=== PATIENT | male | born 1960 | race Caucasian/White ===

== ENCOUNTER → 2021-07-23 15:17 | Outpatient (CLI) | payer BC, SELFPAY ==
[2021-07-23 17:07] LABS: Absolute Lymphocyte Count 2.42 X10^3/uL (0.83-4.51); Absolute Neutrophil Count 2.7 X10^3/uL (2.0-7.7); Basophil# 0.02 X10^3/uL; Basophil% 0.3 % (0-1); Eosinophil# 0.13 X10^3/uL; Eosinophils% 2.2 % (0-5); Hematocrit 35.3 % (40-54); Hemoglobin 11.9 g/dL (13.0-16.5); Lymphocyte # 2.42 X10^3/ul (0.83-4.51); Lymphocyte % 41.4 % (19-41); Mean Corp Hgb Conc 33.7 g/dL (32-36); Mean Corpuscular Volume 88.9 fL (80-94); Mean Platelet Vol. 9.9 fl (6.2-12.0); Monocyte# 0.51 X10^3/uL; Monocyte% 8.7 % (0-10); NRBC Flagged by Analyzer 0 % (0-5); Neutrophil # 2.73 X10^3/uL (2.7-7.7); Neutrophil % 46.9 % (47-70); Platelet Count 202 K/mm3 (150-450); RBC Distribution Width CV 13.9 % (11.6-14.6); RBC Distribution Width SD 44.8 fl (35.1-43.9); Red Blood Count 3.97 M/mm3 (4.6-6.2); White Blood Count 5.8 K/mm3 (4.4-11.0)
[2021-07-23 17:42] LABS: ALB/GLOB Ratio 0.9 RATIO (0.9-2.4); AST(SGOT) 17 U/L (15-37); Alanine Aminotransfer ALT/SGPT 29 U/L (16-61); Albumin, Serum 3.8 g/dL (3.2-5.0); Alkaline Phosphatase 61 U/L (45-117); Anion Gap 9 (5-15); BUN 17 mg/dL (7-18); BUN/Creat Ratio 17.2 RATIO (10-20); Calcium,Total 8.7 mg/dL (8.5-10.1); Chloride 102 mmol/L (98-107); Cholesterol 116 mg/dL (200); Creatinine, Serum 0.99 mg/dL (0.70-1.30); EST Glomerular Filtration Rate 81 mL/min (>60); Est Glom Filt Rate - Afr Amer 99 mL/min (>60); Globulin 4.2 g/dL (2.2-4.2); Glucose 115 mg/dL (74-106); High Density Lipoprotein 37 mg/dL; PSA,Total - Annual Screen 1.53 ng/mL (0.00-4.00); Potassium 4.2 mmol/L (3.5-5.1); Sodium Level 138 mmol/L (136-145); Thyroid Stim Hormone (TSH) 1.24 uIU/mL (0.358-3.74); Triglycerides 162 mg/dL; Very Low Density Lipoprotein 32 mg/dL (5-40)
== END ==
PROVIDERS: PCP Internal Medicine; Referring Provider Nurse Practitioner Family; Visit Provider Nurse Practitioner Family
DX: Z00.00 Encounter for general adult medical examination without abnormal findings (principal); E11.9 Type 2 diabetes mellitus without complications
CPT/HCPCS: 36415; 80053; 80061; 84153; 84443; 85025; G0103

== ENCOUNTER → 2022-05-08 | Outpatient (CLI) | payer BC, SELFPAY ==
[2022-05-08 16:43] LABS: Absolute Lymphocyte Count 3.04 X10^3/uL (0.83-4.51); Basophil# 0.02 X10^3/uL; Basophil% 0.3 % (0-1); Eosinophil# 0.16 X10^3/uL; Eosinophils% 2.4 % (0-5); Hematocrit 43.8 % (40-54); Hemoglobin 14.2 g/dL (13.0-16.5); Lymphocyte # 3.04 X10^3/ul (0.83-4.51); Lymphocyte % 45.2 % (19-41); Mean Corp Hgb Conc 32.4 g/dL (32-36); Mean Corpuscular Hgb 29.3 pg (27.0-32.0); Mean Corpuscular Volume 90.3 fL (80-94); Mean Platelet Vol. 10.2 fl (6.2-12.0); Monocyte# 0.52 X10^3/uL; Monocyte% 7.7 % (0-10); NRBC Flagged by Analyzer 0 % (0-5); Neutrophil # 2.97 X10^3/uL (2.7-7.7); Neutrophil % 44.1 % (47-70); Platelet Count 268 K/mm3 (150-450); RBC Distribution Width CV 13.3 % (11.6-14.6); RBC Distribution Width SD 43.4 fl (35.1-43.9); Red Blood Count 4.85 M/mm3 (4.6-6.2); White Blood Count 6.7 K/mm3 (4.4-11.0)
[2022-05-08 17:50] LABS: ALB/GLOB Ratio 0.9 RATIO (0.9-2.4); AST(SGOT) 16 U/L (15-37); Alanine Aminotransfer ALT/SGPT 24 U/L (16-61); Alkaline Phosphatase 70 U/L (45-117); Anion Gap 8 (5-15); BUN 16 mg/dL (7-18); BUN/Creat Ratio 12.9 RATIO (10-20); Calcium,Total 9.2 mg/dL (8.5-10.1); Chloride 102 mmol/L (98-107); Cholesterol 120 mg/dL (200); Creatinine, Serum 1.24 mg/dL (0.70-1.30); EST Glomerular Filtration Rate 63 mL/min (>60); Est Glom Filt Rate - Afr Amer 76 mL/min (>60); Globulin 4.3 g/dL (2.2-4.2); Glucose 79 mg/dL (74-106); High Density Lipoprotein 32 mg/dL; Protein, Total 8.3 g/dL (6.4-8.2); Sodium Level 139 mmol/L (136-145); Triglycerides 305 mg/dL; Very Low Density Lipoprotein 61 mg/dL (5-40)
== END | disposition home or self-care (01) ==
LOC: BIMLAB 15:45
PROVIDERS: PCP Internal Medicine; Referring Provider Internal Medicine; Visit Provider Internal Medicine
DX: Z00.00 Encounter for general adult medical examination without abnormal findings (principal)
CPT/HCPCS: 36415; 80053; 80061; 85025

== ENCOUNTER → 2023-04-27 | Outpatient (CLI) | payer BC, SELFPAY ==
[2023-04-27 12:07] LABS: Absolute Lymphocyte Count 2.02 X10^3/uL (0.83-4.51); Absolute Neutrophil Count 2.8 X10^3/uL (2.0-7.7); Basophil# 0.03 X10^3/uL; Basophil% 0.6 % (0-1); Eosinophil# 0.08 X10^3/uL; Eosinophils% 1.5 % (0-5); Hematocrit 45.5 % (40-54); Hemoglobin 14.8 g/dL (13.0-16.5); Lymphocyte # 2.02 X10^3/ul (0.83-4.51); Lymphocyte % 38.5 % (19-41); Mean Corp Hgb Conc 32.5 g/dL (32-36); Mean Corpuscular Hgb 29.7 pg (27.0-32.0); Mean Corpuscular Volume 91.2 fL (80-94); Mean Platelet Vol. 9.9 fl (6.2-12.0); Monocyte% 5.7 % (0-10); NRBC Flagged by Analyzer 0 % (0-5); Neutrophil # 2.76 X10^3/uL (2.7-7.7); Neutrophil % 52.7 % (47-70); Platelet Count 247 K/mm3 (150-450); RBC Distribution Width CV 13.3 % (11.6-14.6); RBC Distribution Width SD 44.8 fl (35.1-43.9); Red Blood Count 4.99 M/mm3 (4.6-6.2); White Blood Count 5.2 K/mm3 (4.4-11.0)
[2023-04-27 12:52] LABS: ALB/GLOB Ratio 0.9 RATIO (0.9-2.4); AST(SGOT) 17 U/L (15-37); Alanine Aminotransfer ALT/SGPT 28 U/L (16-61); Alkaline Phosphatase 69 U/L (45-117); Anion Gap 6 (5-15); BUN 16 mg/dL (7-18); BUN/Creat Ratio 14.7 RATIO (10-20); Calcium,Total 9.2 mg/dL (8.5-10.1); Chloride 103 mmol/L (98-107); Cholesterol 134 mg/dL (200); Creatinine, Serum 1.09 mg/dL (0.70-1.30); EST Glomerular Filtration Rate 72 mL/min (>60); Est Glom Filt Rate - Afr Amer 88 mL/min (>60); Globulin 4.4 g/dL (2.2-4.2); Glucose 103 mg/dL (74-106); High Density Lipoprotein 38 mg/dL; PSA,Total - Annual Screen 2.89 ng/mL (0.00-4.00); Potassium 4.2 mmol/L (3.5-5.1); Protein, Total 8.4 g/dL (6.4-8.2); Sodium Level 137 mmol/L (136-145); Triglycerides 244 mg/dL; Very Low Density Lipoprotein 49 mg/dL (5-40)
== END | disposition home or self-care (01) ==
LOC: BIMLAB 11:31
PROVIDERS: PCP Internal Medicine; Referring Provider Internal Medicine; Visit Provider Internal Medicine
DX: Z00.00 Encounter for general adult medical examination without abnormal findings (principal)
CPT/HCPCS: 36415; 80053; 80061; 84153; 85025; G0103

== ENCOUNTER 2023-10-12 09:03 | Emergency (ER) | payer BC, SELFPAY ==
[2023-10-12 09:04] VITALS: BP 169/87; PULSE 75; RESP 18; TEMP 36.4; O2SAT 100; BMI 29.1
--- NOTE | 2023-10-12 09:36 | EDS_ITS ---
HPI HPI - GI History of Present Illness Chief Complaint: Abd Pain Informant: patient and spouse/S.O. Abdominal Pain/Flank Pain Onset: Today Context: Sudden Onset Timing: Continuous Quality: Stabbing Location: RUQ, RLQ and Right Flank Worsened by: - (Sitting) Relieved by: Nothing Nausea/Vomiting/Emesis GI Symptom: Positive for Nausea; Negative for Vomiting Diarrhea/Melena/Hematochezia GI Symptom: Negative for Diarrhea, Melena or Hematochezia Associated Symptoms Associated Symptoms: Negative for Dysuria, Frequency or Hematuria Narrative Narrative: Patient presents with right-sided abdominal pain that began today. Patient states it began rather suddenly. Patient states it has been constant. Patient states it is stabbing. Patient states it is mainly over the right side of his abdomen. Patient states it is worse with sitting. Patient states nothing makes it better. Patient admits to some nausea but denies any vomiting. Patient denies any diarrhea, melena, or hematochezia. Patient denies any urinary complaints. [facility] Medical History (Updated 10/12/23 @ 11:[address] Boby Goodson, DO) Anxiety and depression Diabetes Encounter for preventative adult health care examination Health care maintenance High cholesterol Hyperlipidemia Left ear pain Obesity (BMI 30-39.9) Preventative health care Type 2 diabetes mellitus Home Medications atorvastatin 20 mg tablet 20 mg PO QHS #90 tabs 08/06/23 [Rx Last Taken Unknown] tirzepatide 5 mg/0.5 mL subcutaneous pen injector (Mounjaro) 5 mg (0.5 mL) subcut QWEEK #2 mL 08/21/23 [Rx Last Taken Unknown] metformin 1,000 mg tablet 1,000 mg PO BID #180 tabs 08/31/23 [Rx Last Taken Unknown] empagliflozin 25 mg tablet (Jardiance) See Rx Instructions .Route .COMPLEX #90 tabs 09/08/23 [Rx Last Taken Unknown] hydrocodone-acetaminophen 5-325mg 5mg-325mg 1 tab PO Q6H PRN PRN Pain 3 days #10 TABLETS 10/12/23 [Rx Last Taken Unknown] Allergy/AdvReac Type Severity Reaction Status Date / Time No Known Allergies Allergy Verified 10/12/23 09:03 Family History Mother Arthritis Melanoma Osteoporosis Father Diabetes Heart disease Hypertension High cholesterol Other Depression Surgical History (Updated 10/12/23 @ 09:[address] Boby Goodson DO) History of herniorrhaphy Social History Smoking Status: Never smoker alcohol intake: current alcohol intake frequency: holidays/special occasions only Alcohol type: beer substance use type: does not use what type of physical activity do you participate in: none ROS ROS ED Constitutional Constitutional ED: Denies chills or fever(s) Eyes Eyes: Denies blurry vision or change in vision ENT ENT ED: Denies rhinorrhea or sore throat Cardiovascular Cardiovascular: Denies chest pain or palpitations Respiratory/Chest Respiratory/Chest: Denies cough or dyspnea Gastrointestinal Gastrointestinal: Reports abdominal pain and nausea; Denies diarrhea or vomiting Genitourinary Genitourinary ED: Denies dysuria or hematuria Musculoskeletal Musculoskeletal: Denies back pain or neck pain Integumentary Denies abscess or rash Neurologic Neurologic: Denies headache(s) or weakness Allergic/Immunologic Allergic/Immunologic ED: Denies mouth swelling or urticaria EXAM Physical Exam Const Vital Signs: 10/12/23 09:04 Temperature 97.5 F L Temperature Source Temporal Pulse Rate 75 Respiratory Rate 18 Blood Pressure 169/87 H Blood Pressure Mean 114 Pulse Ox 100 Oxygen Delivery Method Room Air Positive well nourished and well developed General Appearance ED: well developed and NAD HEENT Reports moist mucous membranes Neck supple and no JVD Resp normal respiratory effort and clear to auscultation bilaterally Cardio regular rate and regular rhythm GI non-distended Palpation: soft and tender RUQ; Negative for guarding or rebound tenderness present Back/Spine General Back: CVA tenderness right Neuro CN's II-XII intact bilaterally, moves all extremities and no sensory deficits noted Sensorium / Orientation: alert Motor Exam: strength 5/5 throughout Psych mental status grossly normal Skin no wounds MDM MDM MDM Narrative Medical decision making narrative: Differential diagnosis includes cholecystitis, cholelithiasis, ureteral calculus, pyelonephritis, urinary tract infection, duodenal ulcer, pancreatitis, and gastroenteritis. CBC will be obtained to assess for leukocytosis and anemia. Comprehensive metabolic profile will be obtained to assess for hepatic function, renal function, and electrolyte abnormality. Lipase will be obtained to assess for pancreatitis. Urinalysis will be obtained to assess for urinary tract infection and hematuria. CT scan of the abdomen pelvis will be obtained to assess for ureteral calculus and cholelithiasis. Lab Data Attestation: I reviewed the patient's lab results. Lab results narrative: CBC was reviewed and was within normal limits. Comprehensive metabolic profile was reviewed and was within normal limits. Lipase was reviewed and was normal at 41. Urinalysis was reviewed. There is no evidence of urinary tract infection or hematuria. Labs: Laboratory Results - last 24 hr 10/12/23 10/12/23 09:55 10:40 WBC 6.1 RBC 4.97 Hgb 15.0 Hct 44.6 MCV 89.7 MCH 30.2 MCHC 33.6 RDW Std Deviation 41.9 RDW Coeff of Brayden 12.7 Plt Count 262 MPV 9.7 Immature Gran % (Auto) 1.000 H Neut % (Auto) 57.4 Lymph % (Auto) 33.8 [place] % (Auto) 6.7 Eos % (Auto) 0.8 Baso % (Auto) 0.3 Absolute Neuts (auto) 3.5 Absolute Lymphs (auto) 2.07 Nucleated RBC % 0 Sodium 136 Potassium 3.8 Chloride 103 Carbon Dioxide 26.0 Anion Gap 7 BUN 15 Creatinine 1.21 Estim Creat Clear Calc 58.69 Est GFR (MDRD) Af Amer 77 Est GFR (MDRD) Non-Af 64 BUN/Creatinine Ratio 12.4 Glucose 132 H Calcium 9.4 Total Bilirubin 1.00 AST 19 ALT 22 Alkaline Phosphatase 73 Total Protein 8.5 H Albumin 4.2 Globulin 4.3 H Albumin/Globulin Ratio 1.0 Lipase 41 Urine Color Yellow Urine Clarity Clear Urine pH 6.0 Ur Specific [place] 1.010 Urine Protein Negative Urine Glucose (UA) 1000 H Urine Ketones 5 H Urine Occult Blood 50 H Urine Nitrite Negative Urine Bilirubin Negative Urine Urobilinogen Normal Ur Leukocyte Esterase Negative Urine RBC 0-5 SEEN Urine WBC 0 SEEN Ur Squamous Epith Cells 0 SEEN Urine Bacteria 0 SEEN Urine Mucus 0 SEEN Radiography Diagnostic Testing: Clinical Impression(s) from Imaging Studies Abdomen/Pelvis CT 10/12/23 09:42 IMPRESSION: 3 mm calculus in the distal portion of the right ureter causing a mild degree of right hydronephrosis and hydroureter with right perinephric and periureteric stranding. Prostatic enlargement with indentation at the bladder base. 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 Electronically Signed: Emmanuel Chao MD at 10:25 EST , CT scan of the abdomen pelvis was obtained. There is a 3 mm calculus in the right distal ureter causing mild hydronephrosis and hydroureter. This was interpreted by the radiologist and was also independently reviewed by myself. Treatment and Re-Evaluation :: Patient was advised of his findings. Patient was still having some pain on reexamination. Patient was given injection of Toradol. Patient was given a prescription for a short course of Gates. Patient was instructed to drink plenty of fluids. Patient was instructed to follow-up with her primary care physician in 5 to 7 days. Patient understood and was agreeable with the plan. All questions were answered. Discharge Plan Triage Chief Complaint: Abd Pain ED Provider: Boby Goodson Dx/Rx/DC Orders Clinical Impression: Calculus of distal right ureter, Type 2 diabetes mellitus Instructions: ED Kidney Stone with Pain Prescriptions: New hydrocodone-acetaminophen [hydrocodone-acetaminophen] 5-325 mg tablet 1 tab PO Q6H PRN PRN (Reason: Pain) 3 Days Qty: 10 0RF No Action atorvastatin 20 mg tablet 20 mg PO QHS Qty: 90 0RF Mounjaro 5 mg/0.5 mL pen injector 5 mg subcut QWEEK Qty: 2 1RF metformin 1,000 mg tablet 1,000 mg PO BID Qty: 180 3RF Jardiance 25 mg tablet See Rx Instructions .ROUTE .COMPLEX Qty: 90 0RF Dose Instruction: TAKE 1 TABLET BY MOUTH EVERY DAY Rx Instructions: TAKE 1 TABLET BY MOUTH EVERY DAY Primary Care Provider: Trinidad Lobo Referrals: Trinidad Lobo MD [Primary Care Provider] - 3-5 Days Jin Wong MD [Med Staff - Active Staff] - 3-5 Days Disposition Disposition: Home, Self Care
--- NOTE | 2023-10-12 09:42 | CT_ITS ---
STUDY: CT ABDOMEN AND PELVIS WITHOUT CONTRAST REASON FOR EXAM: Male, 62 years old. Right lower quadrant pain. History of prior right inguinal hernia repair. RADIATION DOSAGE (If Supplied By Facility): CTDIvol = ( 9.01 ) mGy, DLP = ( 542.56 ) mGycm TECHNIQUE: Transaxial images were obtained from the dome of the diaphragm to the symphysis pubis without oral contrast, and without intravenous contrast. Sagittal and coronal images were reconstructed. Individualized dose optimization techniques were used for this CT. COMPARISON: None. FINDINGS: Minimal degree of increased markings at the lung bases suggestive of atelectasis and/or scarring. Coronary artery calcification. Normal liver. Normal gallbladder and extrahepatic biliary system. Normal spleen. Normal pancreas. Normal bilateral adrenal glands. Mild degree of right hydronephrosis and hydroureter due to a 3 mm calculus in the distal portion of the right ureter just proximal to the right ureterovesical junction. There is evidence of a right perinephric stranding and right periureteric stranding. Normal left kidney. There is a small hiatal hernia. Normal small intestine. Normal colon. The appendix is visualized and appears normal. There is scattered atherosclerotic calcification of the abdominal aorta, without a demonstrated aneurysm. 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 Normal inferior vena cava. Normal retroperitoneum. Normal urinary bladder. There is enlargement of the prostate gland. The prostate measures 5.3 cm x 5.4 cm. This causes an indentation of the bladder base. Small bilateral inguinal hernias containing fat. There are diffuse degenerative changes of the visualized lumbar spine. CT/Abdomen/Pelvis without Cont IMPRESSION: 3 mm calculus in the distal portion of the right ureter causing a mild degree of right hydronephrosis and hydroureter with right perinephric and periureteric stranding. Prostatic enlargement with indentation at the bladder base. 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 Electronically Signed: Emmanuel Chao MD at 10:25 EST ,
[2023-10-12] MEDS: 0.9% Normal Saline (1000mL) 1,000 ML 1000 ML IV (09:59)
[2023-10-12] MEDS: Ondansetron 4 MG/2 ML Vial IV (09:59)
[2023-10-12] MEDS: Morphine 4 MG/ML Syringe IV (10:00)
[2023-10-12 10:09] LABS: Absolute Lymphocyte Count 2.07 X10^3/uL (0.83-4.51); Absolute Neutrophil Count 3.5 X10^3/uL (2.0-7.7); Basophil# 0.02 X10^3/uL; Basophil% 0.3 % (0-1); Eosinophil# 0.05 X10^3/uL; Eosinophils% 0.8 % (0-5); Hematocrit 44.6 % (40-54); Lymphocyte # 2.07 X10^3/ul (0.83-4.51); Lymphocyte % 33.8 % (19-41); Mean Corp Hgb Conc 33.6 g/dL (32-36); Mean Corpuscular Hgb 30.2 pg (27.0-32.0); Mean Corpuscular Volume 89.7 fL (80-94); Mean Platelet Vol. 9.7 fl (6.2-12.0); Monocyte# 0.41 X10^3/uL; Monocyte% 6.7 % (0-10); NRBC Flagged by Analyzer 0 % (0-5); Neutrophil # 3.52 X10^3/uL (2.7-7.7); Neutrophil % 57.4 % (47-70); Platelet Count 262 K/mm3 (150-450); RBC Distribution Width CV 12.7 % (11.6-14.6); RBC Distribution Width SD 41.9 fl (35.1-43.9); Red Blood Count 4.97 M/mm3 (4.6-6.2); White Blood Count 6.1 K/mm3 (4.4-11.0)
[2023-10-12 10:42] LABS: AST(SGOT) 19 U/L (15-37); Alanine Aminotransfer ALT/SGPT 22 U/L (16-61); Albumin, Serum 4.2 g/dL (3.2-5.0); Alkaline Phosphatase 73 U/L (45-117); Anion Gap 7 (5-15); BUN 15 mg/dL (7-18); BUN/Creat Ratio 12.4 RATIO (10-20); Calcium,Total 9.4 mg/dL (8.5-10.1); Chloride 103 mmol/L (98-107); Creatinine, Serum 1.21 mg/dL (0.70-1.30); EST Glomerular Filtration Rate 64 mL/min (>60); Est Glom Filt Rate - Afr Amer 77 mL/min (>60); Estimated Creatinine Clearance 58.69 ml/min; Globulin 4.3 g/dL (2.2-4.2); Glucose 132 mg/dL (74-106); Lipase 41 U/L (13-75); Potassium 3.8 mmol/L (3.5-5.1); Protein, Total 8.5 g/dL (6.4-8.2); Sodium Level 136 mmol/L (136-145)
[2023-10-12 10:46] LABS: Bacteria 0 SEEN /hpf (None Seen); Mucous, Urine 0 SEEN /hpf (<or=2+); Squamous Epithelial Cells - UA 0 SEEN /hpf (0-5); White Blood Cells 0 SEEN /hpf (0-5)
[2023-10-12 11:00] LABS: Color, Urine Yellow (Yellow); Glucose, Dipstick 1000 mg/dl (Normal); Ketone-Dipstick 5 mg/dl (Negative); Leukocyte Esterase-Dipstick Negative /ul (Negative); Nitrite-Dipstick Negative (Negative); Occult Blood-Urine 50 /ul (Negative); Protein-Dipstick Negative (Negative); Urine Bilirubin Dipstick Negative (Negative); Urine Clarity Clear (Clear); Urine Urobilinogen Normal (Normal)
[2023-10-12 11:12] LABS: Red Blood Cells-Urine 0-5 SEEN /hpf (0-5)
[2023-10-12] MEDS: Ketorolac 15 MG/ML Vial IV (11:31)
[2023-10-12 11:38] VITALS: BP 160/65; PULSE 85; RESP 18; TEMP 36.6; O2SAT 99
== END 2023-10-12 11:40 | disposition home or self-care (01) ==
PROVIDERS: Emergency Provider Emergency Medicine; PCP Internal Medicine; Visit Provider Emergency Medicine
DX: N13.2 Hydronephrosis with renal and ureteral calculous obstruction (principal); I72.8 Aneurysm of other specified arteries; E11.9 Type 2 diabetes mellitus without complications; E78.00 Pure hypercholesterolemia, unspecified
CPT/HCPCS: 74176; 80053; 81001; 83690; 85025; 96361; 96374; 96375; 99282; J7030; A4216; J2405

== ENCOUNTER → 2023-10-15 | Outpatient (CLI) | payer BC, SELFPAY ==
[2023-10-15 15:28] LABS: Bacteria 0 SEEN /hpf (None Seen); Mucous, Urine 0 SEEN /hpf (<or=2+); Squamous Epithelial Cells - UA 0 SEEN /hpf (0-5)
[2023-10-15 17:03] LABS: Color, Urine Yellow (Yellow); Glucose, Dipstick 1000 mg/dl (Normal); Ketone-Dipstick Negative (Negative); Leukocyte Esterase-Dipstick Negative /ul (Negative); Nitrite-Dipstick Negative (Negative); Occult Blood-Urine 250 /ul (Negative); Protein-Dipstick 15 mg/dl (Negative); Urine Bilirubin Dipstick Negative (Negative); Urine Clarity Sl. Cloudy (Clear); Urine Urobilinogen Normal (Normal)
[2023-10-15 17:17] LABS: Hemoglobin A1c 6.1 % (3.8-5.6)
[2023-10-15 17:29] LABS: Red Blood Cells-Urine 10-25 SEEN /hpf (0-5); White Blood Cells 0-5 SEEN /hpf (0-5)
== END | disposition home or self-care (01) ==
LOC: BIMLAB 15:27
PROVIDERS: PCP Internal Medicine; Visit Provider Internal Medicine
DX: N20.1 Calculus of ureter (principal); E11.9 Type 2 diabetes mellitus without complications
CPT/HCPCS: 36415; 81001; 83036

== ENCOUNTER → 2023-10-22 | Outpatient (CLI) | payer BC, SELFPAY ==
[2023-10-22 13:18] LABS: Bacteria 0 SEEN /hpf (None Seen); Mucous, Urine 0 SEEN /hpf (<or=2+); Red Blood Cells-Urine 0 SEEN /hpf (0-5); Squamous Epithelial Cells - UA 0 SEEN /hpf (0-5)
[2023-10-22 15:55] LABS: Color, Urine Yellow (Yellow); Glucose, Dipstick 1000 mg/dl (Normal); Ketone-Dipstick Negative (Negative); Leukocyte Esterase-Dipstick Negative /ul (Negative); Nitrite-Dipstick Negative (Negative); Occult Blood-Urine Negative /ul (Negative); Protein-Dipstick Negative (Negative); Specific Gravity, Urine 1.015 (1.002-1.030); Urine Bilirubin Dipstick Negative (Negative); Urine Clarity Clear (Clear); Urine Urobilinogen Normal (Normal)
[2023-10-22 16:08] LABS: White Blood Cells 0-5 SEEN /hpf (0-5)
== END | disposition home or self-care (01) ==
LOC: LABSPEC 13:17
PROVIDERS: PCP Internal Medicine; Visit Provider Internal Medicine
DX: R31.9 Hematuria, unspecified (principal)
CPT/HCPCS: 81001

== ENCOUNTER → 2023-11-12 | Outpatient (CLI) | payer BC, SELFPAY ==
--- NOTE | 2023-11-12 07:54 | CT_ITS ---
STUDY: CTA ABDOMEN AND PELVIS WITH CONTRAST REASON FOR EXAM: Male, 62 years old. Splenic artery aneurysm RADIATION DOSAGE (If Supplied By Facility): CTDIvol = ( 25.54 ) mGy, DLP = ( 786.34 ) mGycm TECHNIQUE: Transaxial images were obtained from the dome of the diaphragm to the symphysis pubis without oral contrast. IV 100mL [id number]-[id number] was administered. Sagittal and coronal images were reconstructed. Individualized dose optimization techniques were used for this CT. COMPARISON: Comparison is made with prior study dated October 12, 2023. FINDINGS: The visualized lung bases are unremarkable. The visualized portions of the heart are within normal limits. Normal liver. Normal gallbladder and extrahepatic biliary system. Normal spleen. Normal pancreas. Normal bilateral adrenal glands. Normal right kidney. The previously seen right hydronephrosis due to a 3 mm calculus in the distal portion of the right ureter is not seen at this time. Normal left kidney. Normal visualized stomach. Normal small intestine. Normal colon. The appendix is visualized and appears normal. There is scattered atherosclerotic calcification of the abdominal aorta, without a demonstrated aneurysm. Once again, there is evidence of a 1.7 cm x 2 cm partially calcified splenic artery aneurysm. Normal inferior vena cava. Normal retroperitoneum. Normal urinary bladder. There is enlargement of the prostate gland. Normal abdominal wall. There are degenerative changes of the visualized lumbar spine. CT/CTA Abd/Pelvis W/WO Contrast IMPRESSION: 1.7 cm x 2 cm partially calcified splenic artery aneurysm. The previously seen right-sided hydronephrosis and obstructive uropathy is not seen at this time. Electronically Signed: Emmanuel Chao MD at 10:29 EDT ,
== END | disposition home or self-care (01) ==
PROVIDERS: PCP Internal Medicine; Referring Provider Physician Assistant; Visit Provider Physician Assistant
DX: I72.8 Aneurysm of other specified arteries (principal)
CPT/HCPCS: 74174; Q9967

== ENCOUNTER → 2024-04-14 | Outpatient (CLI) | payer BC, SELFPAY ==
[2024-04-14 16:32] LABS: Absolute Lymphocyte Count 2.46 X10^3/uL (0.83-4.51); Basophil# 0.03 X10^3/uL; Basophil% 0.5 % (0-1); Eosinophil# 0.06 X10^3/uL; Hematocrit 41.9 % (40-54); Lymphocyte # 2.46 X10^3/ul (0.83-4.51); Lymphocyte % 41.3 % (19-41); Mean Corp Hgb Conc 33.4 g/dL (32-36); Mean Corpuscular Hgb 29.5 pg (27.0-32.0); Mean Corpuscular Volume 88.4 fL (80-94); Mean Platelet Vol. 9.9 fl (6.2-12.0); Monocyte# 0.44 X10^3/uL; Monocyte% 7.4 % (0-10); NRBC Flagged by Analyzer 0 % (0-5); Neutrophil # 2.95 X10^3/uL (2.7-7.7); Neutrophil % 49.5 % (47-70); Platelet Count 235 K/mm3 (150-450); RBC Distribution Width CV 13.1 % (11.6-14.6); RBC Distribution Width SD 41.9 fl (35.1-43.9); Red Blood Count 4.74 M/mm3 (4.6-6.2)
[2024-04-14 17:00] LABS: ALB/GLOB Ratio 0.9 RATIO (0.9-2.4); AST(SGOT) 15 U/L (15-37); Alanine Aminotransfer ALT/SGPT 15 U/L (16-61); Albumin, Serum 3.9 g/dL (3.2-5.0); Alkaline Phosphatase 73 U/L (45-117); Anion Gap 7 (5-15); BUN 23 mg/dL (7-18); BUN/Creat Ratio 19.5 RATIO (10-20); Calcium,Total 9.1 mg/dL (8.5-10.1); Chloride 103 mmol/L (98-107); Cholesterol 100 mg/dL (200); Creatinine, Serum 1.18 mg/dL (0.70-1.30); EST Glomerular Filtration Rate 66 mL/min (>60); Est Glom Filt Rate - Afr Amer 80 mL/min (>60); Globulin 4.2 g/dL (2.2-4.2); Glucose 90 mg/dL (74-106); High Density Lipoprotein 37 mg/dL; Potassium 3.9 mmol/L (3.5-5.1); Protein, Total 8.1 g/dL (6.4-8.2); Sodium Level 137 mmol/L (136-145); Triglycerides 155 mg/dL; Very Low Density Lipoprotein 31 mg/dL (5-40)
== END | disposition home or self-care (01) ==
LOC: BIMLAB 15:25
PROVIDERS: PCP Internal Medicine; Referring Provider Internal Medicine; Visit Provider Internal Medicine
DX: Z00.00 Encounter for general adult medical examination without abnormal findings (principal)
CPT/HCPCS: 36415; 80053; 80061; 85025

== ENCOUNTER → 2024-04-28 | Outpatient (CLI) | payer BC, SELFPAY ==
[2024-04-28 12:40] LABS: PSA,Total - Annual Screen 2.62 ng/mL (0.00-4.00)
== END | disposition home or self-care (01) ==
LOC: BIMLAB 09:13
PROVIDERS: PCP Internal Medicine; Referring Provider Internal Medicine; Visit Provider Internal Medicine
DX: Z00.00 Encounter for general adult medical examination without abnormal findings (principal); Z12.5 Encounter for screening for malignant neoplasm of prostate
CPT/HCPCS: 36415; 84153; G0103

== ENCOUNTER → 2025-01-26 | Outpatient (CLI) | payer BC, SELFPAY ==
[2025-01-26 16:47] LABS: Absolute Lymphocyte Count 2.66 X10^3/uL (0.83-4.51); Absolute Neutrophil Count 5.1 X10^3/uL (2.0-7.7); Basophil# 0.04 X10^3/uL; Basophil% 0.5 % (0-1); Eosinophil# 0.09 X10^3/uL; Eosinophils% 1.1 % (0-5); Hematocrit 42.6 % (40-54); Hemoglobin 14.2 g/dL (13.0-16.5); Lymphocyte # 2.66 X10^3/ul (0.83-4.51); Lymphocyte % 31.3 % (19-41); Mean Corp Hgb Conc 33.3 g/dL (32-36); Mean Corpuscular Hgb 29.9 pg (27.0-32.0); Mean Corpuscular Volume 89.7 fL (80-94); Mean Platelet Vol. 9.8 fl (6.2-12.0); Monocyte# 0.58 X10^3/uL; Monocyte% 6.8 % (0-10); NRBC Flagged by Analyzer 0 % (0-5); Neutrophil # 5.06 X10^3/uL (2.7-7.7); Neutrophil % 59.6 % (47-70); Platelet Count 247 K/mm3 (150-450); RBC Distribution Width SD 42.7 fl (35.1-43.9); Red Blood Count 4.75 M/mm3 (4.6-6.2); White Blood Count 8.5 K/mm3 (4.4-11.0)
[2025-01-26 18:04] LABS: ALB/GLOB Ratio 1.4 RATIO (0.9-2.4); AST(SGOT) 23 U/L (<=37); Alanine Aminotransfer ALT/SGPT 18 U/L (<=46); Albumin, Serum 4.6 g/dL (3.4-4.8); Alkaline Phosphatase 69 U/L (40-129); Anion Gap 13 (5-15); BUN 16 mg/dL (4-19); BUN/Creat Ratio 11.8 RATIO (10-20); Calcium,Total 9.6 mg/dL (7.6-11.0); Carbon Dioxide 23.3 mmol/L (21.0-32.0); Chloride 102 mmol/L (98-108); Cholesterol 131 mg/dL (<=200); Creatinine, Serum 1.31 mg/dL (0.70-1.20); EST Glomerular Filtration Rate 60 (>60); Globulin 3.3 g/dL (2.2-4.2); Glucose 92 mg/dL (70-99); High Density Lipoprotein 35 mg/dL; Low Density Lipoprotein Calc. 44 mg/dL; Potassium 4.1 mmol/L (3.3-5.1); Protein, Total 7.9 g/dL (5.9-8.4); Sodium Level 138 mmol/L (133-145); Total Bilirubin 0.72 mg/dL (0.00-1.30); Triglycerides 257 mg/dL; Very Low Density Lipoprotein 51 mg/dL (5-40); cholesterol:hdl ratio screen 3.72
== END | disposition home or self-care (01) ==
LOC: BIMLAB 15:39
PROVIDERS: PCP Internal Medicine; Referring Provider Internal Medicine; Visit Provider Internal Medicine
DX: E11.69 Type 2 diabetes mellitus with other specified complication (principal)
CPT/HCPCS: 36415; 80053; 80061; 85025

== ENCOUNTER → 2025-04-27 | Outpatient (CLI) | payer BC, SELFPAY | END | disposition home or self-care (01) | LOC: BIMLAB 08:58 | PROVIDERS: PCP Internal Medicine; Referring Provider Internal Medicine; Visit Provider Internal Medicine | DX: E11.69 Type 2 diabetes mellitus with other specified complication (principal) | CPT/HCPCS: 36415; 83036 ==

== ENCOUNTER → 2025-06-14 | Outpatient (CLI) | payer BC, SELFPAY ==
[2025-06-14 13:27] LABS: Mucous, Urine 0 SEEN /hpf (<or=2+); Red Blood Cells-Urine 0 SEEN /hpf (0-5); Squamous Epithelial Cells - UA 0 SEEN /hpf (0-5)
[2025-06-14 14:10] LABS: Color, Urine Yellow (Yellow); Glucose, Dipstick 1000 mg/dl (Normal); Ketone-Dipstick Negative (Negative); Leukocyte Esterase-Dipstick Negative /ul (Negative); Nitrite-Dipstick Negative (Negative); Occult Blood-Urine Negative /ul (Negative); Protein-Dipstick Negative (Negative); Specific Gravity, Urine 1.015 (1.002-1.030); Urine Bilirubin Dipstick Negative (Negative)
[2025-06-14 14:21] LABS: Hematocrit 43.0 % (40-54); Hemoglobin 14.6 g/dL (13.0-16.5); Immature Granulocytes Count 0.040 X10^3/uL (0.0-0.0); Mean Corp Hgb Conc 34.0 g/dL (32-36); Mean Corpuscular Volume 89.6 fL (80-94); Mean Platelet Vol. 9.6 fl (6.2-12.0); NRBC Flagged by Analyzer 0 % (0-5); Platelet Count 251 K/mm3 (150-450); RBC Distribution Width CV 13.4 % (11.6-14.6); RBC Distribution Width SD 43.9 fl (35.1-43.9); Red Blood Count 4.80 M/mm3 (4.6-6.2); White Blood Count 7.1 K/mm3 (4.4-11.0)
[2025-06-14 14:48] LABS: Troponin T High Sensitivity 23 ng/L (<=22)
[2025-06-14 14:56] LABS: AST(SGOT) 21 U/L (<=37); Alanine Aminotransfer ALT/SGPT 18 U/L (<=46); Albumin, Serum 4.4 g/dL (3.4-4.8); Alkaline Phosphatase 61 U/L (40-129); Anion Gap 12 (5-15); BUN 19 mg/dL (4-19); BUN/Creat Ratio 16.7 RATIO (10-20); Calcium,Total 9.4 mg/dL (7.6-11.0); Carbon Dioxide 24.0 mmol/L (21.0-32.0); Chloride 101 mmol/L (98-108); Globulin 3.2 g/dL (2.2-4.2); Glucose 88 mg/dL (70-99); Potassium 4.3 mmol/L (3.3-5.1)
[2025-06-14 17:40] LABS: Troponin T High Sensitivity 19 ng/L (<=22)
== END | disposition home or self-care (01) ==
LOC: MTLAB 13:21 → LAB 16:54
PROVIDERS: PCP Internal Medicine; Referring Provider Internal Medicine; Visit Provider Internal Medicine
DX: R06.00 Dyspnea, unspecified (principal); E11.69 Type 2 diabetes mellitus with other specified complication; R00.2 Palpitations; R53.81 Other malaise; R53.83 Other fatigue; R79.89 Other specified abnormal findings of blood chemistry
CPT/HCPCS: 36415; 80053; 81001; 84439; 84443; 84484; 85025

== ENCOUNTER → 2025-06-16 | Outpatient (CLI) | payer BC, SELFPAY ==
[2025-06-16 06:44] LABS: CORTISOL AM 15.60 ug/dL (6.02-18.40)
[2025-06-23 18:12] LABS: ALDOSTERONE/RENIN RATIO 3.5 (0.0-30.0)
== END | disposition home or self-care (01) ==
LOC: LAB 05:58
PROVIDERS: PCP Internal Medicine; Referring Provider Internal Medicine; Visit Provider Internal Medicine
DX: R00.0 Tachycardia, unspecified (principal); R53.81 Other malaise; R53.83 Other fatigue
CPT/HCPCS: 36415; 82024; 82088; 82533; 84244

== ENCOUNTER → 2025-06-28 | Outpatient (CLI) | payer BC, SELFPAY ==
--- OUTSIDE RECORDS SUMMARY | 2025-06-28 06:52 | XMS RPT_ITS | CCD ---
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 Trinidad Lobo Primary Care Provider [phone] Lashell, Dr. Abdi Attending Provider [phone] Dr. Trinidad Lobo Referring Provider [phone] Dr. Trinidad Lobo Primary Care Provider [phone] Lashell, Dr. Abdi Attending Provider [phone] Lashell, Dr. Abdi Referring Provider [phone] LEVI Danielle Attending Provider Lashell ACUÑA, Dr. Abdi Primary Care Provider Lashell ACUÑA, Dr. Abdi Attending Provider [phone] Lashell ACUÑA, Dr. Abdi Referring Provider [phone] Lashell ACUÑA, Dr. Abdi Primary Care Physician Lashell ACUÑA, Dr. Abdi Attending Physician [phone] Oleantoniae, Efewongbe Attending Unavailable Oleghe, Efewongbe Referring Unavailable Oleghe, Efewongbe Primary Care Unavailable Oleghe, Efewongbe Referring Unavailable Oleghe, Efewongbe Attending Unavailable Oleghe, Efewongbe Primary Care Unavailable Oleghe, Efewongbe Referring Unavailable Oleghe, Efewongbe Primary Care Unavailable Oleghe, Efewongbe Attending Unavailable Oleghe, Efewongbe Referring Unavailable Oleghe, Efewongbe Primary Care Unavailable Oleghe, Efewongbe Attending Unavailable Oleghe, Efewongbe Attending Unavailable Oleghe, Efewongbe Referring Unavailable Oleghe, Efewongbe Primary Care Unavailable Oleantoniae, Efewongbe Attending Unavailable Oleghe, Efewongbe Referring Unavailable Oleghe, Efewongbe Primary Care Unavailable Oleghe, Efewongbe Attending Unavailable Oleghe, Efewongbe Referring Unavailable Oleantoniae, Efewongbe Primary Care Unavailable Medications Current Medications Medication Drug Class(es) Dates Sig (Normalized) Sig (Original) aspirin 81 mg delayed release oral tablet (3 sources) Platelet Aggregation Inhibitor, Nonsteroidal Anti-inflammatory Drug Start: 01-26-2025 atorvastatin 10 mg oral tablet (20 sources) HMG-CoA Reductase Inhibitor Start: 04-14-2024 End: 04-27-2025 take 1 tablet by mouth at bedtime Start: 07-23-2021 End: 04-14-2024 take 1 tablet by mouth at bedtime Atorvastatin 20 mg tablet Discontinued 20 mg PO AT BEDTIME 90 February 15, 2024 4:28pm April 14, 2024 5:49pm tamsulosin hydrochloride 0.4 mg oral capsule (16 sources) alpha-Adrenergic Nhung Start: 10-15-2023 End: 04-20-2025 take 1 capsule by mouth at bedtime Tirzepatide (1 source) Start: 04-27-2025 Tirzepatide (Mounjaro) 5 mg/0.5 mL pen injector (14 sources) Start: 09-09-2024 Tirzepatide (Mounjaro) 5 mg/0.5 mL pen injector Active 5 mg SC EVERY WEEK 6.5 September 09, 2024 2:15pm Start: 03-23-2024 End: 09-09-2024 Tirzepatide (Mounjaro) 5 mg/ 0.5 mL pen injector Discontinued 5 mg SC EVERY WEEK 6.5 March 23, 2024 4:22pm September 09, 2024 2:15pm Start: 10-16-2023 End: 03-23-2024 Tirzepatide (Mounjaro) 5 mg/ 0.5 mL pen injector Discontinued 5 mg SC EVERY WEEK 6.5 October 16, 2023 1:47pm March 23, 2024 4:22pm Start: 10-16-2023 Tirzepatide (M ounjaro) 5 mg/0.5 mL pen injector Active 5 MG SC EVERY WEEK 6.5 90 October 16, 2023 1:47pm Start: 10-16-2023 Tirzepatide (M ounjaro) 5 mg/0.5 mL pen injector Active 5 MG SC EVERY WEEK 6.5 90 October 16, 2023 12:47pm Start: 08-21-2023 End: 10-16-2023 Tirzepatide (Mounjaro) 5 mg/ 0.5 mL pen injector Discontinued 5 mg SC EVERY WEEK 2 August 21, 2023 1:00am October 16, 2023 1:47pm Start: 08-21-2023 End: 10-16-2023 Tirzepatide (Mounjaro) 5 mg/ 0.5 mL pen injector Discontinued 5 MG SC EVERY WEEK 2 August 21, 2023 1:00am October 16, 2023 1:47pm Start: 08-21-2023 End: 10-16-2023 Tirzepatide (Mounjaro) 5 mg/ 0.5 mL pen injector Discontinued 5 MG SC EVERY WEEK 2 August 21, 2023 12:00am October 16, 2023 12:47pm Completed/Discontinued Medications Medication Drug Class(es) Dates Sig (Normalized) Sig (Original) acetaminophen 325 mg / HYDROcodone bitartrate 5 mg oral tablet (6 sources) Opioid Agonist Start: 10-12-2023 End: 11-05-2023 Hydrocodone-Acetami nophen 5-325 mg tablet Discontinued 1 {tbl} PO EVERY 6 HOURS NEEDED as needed for Pain 10 3 0 October 12, 2023 November 05, 2023 9:17am Calculus of distal right ureter Calculus of ureter Start: 10-12-2023 End: 11-05-2023 take 1 tablet by mouth every six hours as needed Hydrocodone-Acetaminophen Discontinued 1 TABLET PO EVERY 6 HOURS NEEDED 10 3 October 12, 2023 November 05, 2023 9:17am amoxicillin 875 mg / clavulanate 125 mg oral tablet (7 sources) Penicillin-class Antibacterial Start: 04-27-2023 End: 05-11-2023 Amoxicillin-Pot Clavulanate 875-125 mg tablet Discontinued 1 {tbl} PO Q12H 28 14 0 April 27, 2023 12:00am May 10, 2023 12:00am May 11, 2023 12:04am Start: 04-27-2023 End: 05-11-2023 take 1 tablet by mouth every twelve hours Amoxicillin-Pot Clavulanate Discontinued 1 TABLET PO Q12H 28 14 April 27, 2023 12:00am May 11, 2023 12:04am 0.5 ml dulaglutide 3 mg/ml auto-injector (20 sources) GLP-1 Receptor Agonist Start: 02-06-2022 End: 08-21-2023 Dulaglutide (Trulicity) 1.5 mg/0.5 mL pen injector Discontinued 1.5 mg SC EVERY WEEK 6.5 90 August 13, 2023 5:17pm August 21, 2023 3:38pm empagliflozin 25 mg oral tablet (20 sources) Sodium-Glucose Cotransporter 2 Inhibitor Start: 07-23-2021 End: 11-17-2024 take 1 tablet by mouth once daily Empagliflozin (Jardiance) 25 mg tablet Discontinued 0 .ROUTE .COMPLEX 90 April 19, 2024 12:33pm November 17, 2024 9:36am TAKE 1 TABLET BY MOUTH EVERY DAY Start: 07-23-2021 End: 07-23-2021 take 1 tablet by mouth once daily Empagliflozin (Jardiance) 10 mg tablet Discontinued 10 mg PO DAILY July 23, 2021 1:00am July 23, 2021 3:56pm FLUoxetine 20 mg oral capsule (16 sources) Serotonin Reuptake Inhibitor Start: 07-23-2021 End: 05-08-2022 take 1 capsule by mouth once daily Fluoxetine 20 mg capsule Discontinued 20 mg PO DAILY 90 July 23, 2021 3:57pm May 08, 2022 3:21pm metFORMIN hydrochloride 1000 mg oral tablet (20 sources) Biguanide Start: 07-23-2021 End: 08-19-2024 take 1 tablet by mouth twice daily Metformin 1,000 mg tablet Discontinued 1000 mg PO TWICE A DAY 180 August 31, 2023 11:36am August 19, 2024 1:38pm metFORMIN hydrochloride 1000 mg / SITagliptin 50 mg oral tablet (8 sources) Biguanide, Dipeptidyl Peptidase 4 Inhibitor Start: 07-23-2021 End: 07-23-2021 Sitagliptin Phos-Metformin (Janumet) 50-1,000 mg tablet Discontinued 1 {tbl} PO TWICE A DAY July 23, 2021 1:00am July 23, 2021 3:51pm Tirzepatide (5 sources) Start: 03-01-2025 End: 04-27-2025 Tirzepatide (Mounjaro) 5 mg/0.5 mL pen injector Discontinued 5 mg SC EVERY WEEK 6.5 90 March 01, 2025 9:55pm April 27, 2025 4:54pm Start: 09-09-2024 End: 03-01-2025 Tirzepatide (Mounjaro) 5 mg/ 0.5 mL pen injector Discontinued 5 mg SC EVERY WEEK 6.5 90 September 09, 2024 2:15pm March 01, 2025 9:55pm Start: 03-23-2024 End: 09-09-2024 Tirzepatide (Mounjaro) 5 mg/ 0.5 mL pen injector Discontinued 5 mg SC EVERY WEEK 6.5 90 1 March 23, 2024 4:22pm September 09, 2024 2:15pm Start: 10-16-2023 End: 03-23-2024 Tirzepatide (Mounjaro) 5 mg/ 0.5 mL pen injector Discontinued 5 mg SC EVERY WEEK 6.5 90 1 October 16, 2023 1:47pm March 23, 2024 4:22pm Start: 08-21-2023 End: 10-16-2023 Tirzepatide (Mounjaro) 5 mg/ 0.5 mL pen injector Discontinued 5 mg SC EVERY WEEK 2 August 21, 2023 1:00am October 16, 2023 1:47pm Problems Active Problems Problem Classification Problem Date Documented Date Episodic/Chronic Anxiety disorders (9 sources) Mixed anxiety and depressive disorder; Translations: [Anxiety disorder, unspecified] Chronic Aortic; peripheral; and visceral artery aneurysms (10 sources) Aneurysm of splenic artery; Translations: [Aneurysm of other specified arteries] 10-15-2023 Chronic Comment on above: CTA- images reviewed , 2 cm circumferentially calcified splenic artery aneurysm at bifurcation point into to terminal hilar branches; mid vessel with distributed type configuration Calculus of urinary tract (7 sources) Ureteric stone of lower third of ureter; Translations: [Calculus of ureter] 10-12-2023 Episodic Cardiac dysrhythmias (2 sources) Tachycardia, unspecified; Translations: [Palpitations] Onset: 06-14-2025 Episodic Diabetes mellitus with complications (1 source) Type 2 diabetes mellitus with other specified complication; Translations: [Type 2 diabetes mellitus with other specified complication] Onset: 06-14-2025 Chronic Diabetes mellitus without complication (17 sources) Type 2 diabetes mellitus; Translations: [Type 2 diabetes mellitus without complications] Chronic Disorders of lipid metabolism (12 sources) Hyperlipidemia; Translations: [Hyperlipidemia, unspecified] Chronic Genitourinary symptoms and ill-defined conditions (6 sources) Blood in urine; Translations: [Hematuria, unspecified] 10-15-2023 Episodic Hyperplasia of prostate (9 sources) Benign prostatic hyperplasia; Translations: [Benign prostatic hyperplasia without lower urinary tract symptoms] 10-15-2023 Chronic Malaise and fatigue (2 sources) Other malaise; Translations: [Other fatigue] Onset: 06-14-2025 Episodic Other and unspecified benign neoplasm (4 sources) Pigmented skin lesion ; Translations: [Melanocytic nevi, unspecified] 01-26-2025 Episodic Other ear and sense organ disorders (8 sources) Otalgia, left ear; Translations: [Left ear pain] 04-27-2023 Episodic Other lower respiratory disease (2 sources) Dyspnea, unspecified; Translations: [Dyspnea, unspecified] Onset: 06-21-2025 Episodic Other nutritional; endocrine; and metabolic disorders (8 sources) Body mass index 30+ - obesity; Translations: [Obesity, unspecified] 11-14-2021 Chronic Other screening for suspected conditions (not mental disorders or infectious disease) (1 source) Other specified abnormal findings of blood chemistry; Translations: [Other specified abnormal findings of blood chemistry] Onset: 06-21-2025 Episodic Unclassified (3 sources) Z00.00 - Encounter for general adult medical examination without abnormal findings,D22.9 - Melanocytic nevi, unspecified Unclassified (1 source) Patient encounter status Past or Other Problems Problem Classification Problem Date Documented Da te Episodic/Chronic Other and unspecified benign neoplasm (1 source) Melanocytic nevi, unspecified; Translations: [Melanocytic nevi, unspecified] Onset: 01-26-2025 Episodic Results Test Name Value Interpretation Reference Range Facility Adrenocorticotropic Hormoneo n 06-23-2025 ACTH 78.1 pg/mL High 7.2-63.3 [facility] Comment on above: Order Comment: Test( s) 783896-Jvablbrlach; 557842-Rbjgm Activity, Plasma was developed and its performance characteristics determined by [facility]. It has not been cleared or approved by the Food and Drug Administration. N Result Comment: ACTH reference interval for samples collected between 7 and 10 AM. Performed at: [facility] [address] [id number] Digital Associate: Vaibhav Ross MD, Phone: [phone] Performed at: [address] [id number] Digital Associate: Ayan Mora PhD, Phone: [phone] Performed By: #### L 3300.1050, L509.6001, L3300.1000 #### [facility] [address] [place], [place], [id number] Renin/Aldosterone Activityon 06-23-2025 ALD/RENIN RATIO 3.5 Normal 0.0-30.0 [facility] Comment on above: Order Comment: Test( s) 500509-Haamfnvdcji; 889857-Wxvww Activity, Plasma was developed and its performance characteristics determined by [facility]. It has not been cleared or approved by the Food and Drug Administration. Result Comment: Unit s: ng/dL per ng/mL/hr Performed By: #### L 3300.1050, L509.6001, L3300.1000 #### [facility] [address] [place], [address] ALDOSTERONE,S 5.1 ng/dL Normal 0.0-30.0 [facility] Comment on above: Order Comment: Test( s) 462416-Nslehptoirh; 549317-Zhwan Activity, Plasma was developed and its performance characteristics determined by [facility]. It has not been cleared or approved by the Food and Drug Administration. Performed By: #### L 3300.1050, L509.6001, L3300.1000 #### [facility] [address] [place], [address] RENIN, PLASMA 1.464 ng/mL/hr Normal 0.167-5.380 [facility] Comment on above: Order Comment: Test( s) [id number]-Sijpmkzxyum; 582273-Ogpkt Activity, Plasma was developed and its performance characteristics determined by [facility]. It has not been cleared or approved by the Food and Drug Administration. Performed By: #### L 3300.1050, L509.6001, L3300.1000 #### [facility] [address] [place], [address] L509.6001on 06-16-2025 CORTISOL 15.60 ug/dL Normal 6.02-18.40 [facility] Comment on above: Performed By: #### L 3300.1050, L509.6001, L3300.1000 #### [facility] [address] [place], [address] CBC W/Diff, Automatedon 05-18 Absolute Lymph 2.15 X10 3/uL Normal 0.83-4.51 [facility] Comment on above: Performed By: #### L 100.0100, L500.4050, L500.4100 #### [facility] [address] [place], [address] Absolute Neut 4.4 X10 3/uL Normal 2.0-7.7 [facility] Comment on above: Performed By: #### L 100.0100, L500.4050, L500.4100 #### [facility] [address] [place], [address] Basophils/100 WBC (Bld) 0.4 % Normal 0-1 [facility] Comment on above: Performed By: #### L 100.0100, L500.4050, L500.4100 #### [facility] [address] [place], [address] Eosinophils/100 WBC (Bld) 0.7 % Normal 0-5 [facility] Comment on above: Performed By: #### L 100.0100, L500.4050, L500.4100 #### [facility] [address] [place], [address] Erythrocyte distribution width (RBC) [Ratio] 13.4 % Normal 11.6-14.6 [facility] Comment on above: Performed By: #### L 100.0100, L500.4050, L500.4100 #### [facility] [address] [place], [address] Hematocrit (Bld) [Volume fraction] 43.0 % Normal 40-54 [facility] Comment on above: Performed By: #### L 100.0100, L500.4050, L500.4100 #### [facility] [address] [place], [address] Hemoglobin (Bld) [Mass/Vol] 14.6 g/dL Normal 13.0-16.5 [facility] Comment on above: Performed By: #### L 100.0100, L500.4050, L500.4100 #### [facility] [address] [place], [address] IG% 0.600 Normal 0.0-0.9 [facility] Comment on above: Result Comment: IG% - Immature Granulocytes (promyelocytes, myelocytes and metamyelocytes) > 1% indicates that a LEFT SHIFT is Present. Performed By: #### L 100.0100, L500.4050, L500.4100 #### [facility] [address] [place], [address] Lymphocytes/100 WBC (Bld) 30.4 % Normal 19-41 [facility] Comment on above: Performed By: #### L 100.0100, L500.4050, L500.4100 #### [facility] [address] [place], [address] MCH (RBC) [Entitic mass] 30.4 pg Normal 27.0-32.0 [facility] Comment on above: Performed By: #### L 100.0100, L500.4050, L500.4100 #### [facility] [address] [place], [address] MCHC (RBC) [Mass/Vol] 34.0 g/dL Normal 32-36 [facility] Comment on above: Performed By: #### L 100.0100, L500.4050, L500.4100 #### [facility] [address] [place], [address] MCV (RBC) [Entitic vol] 89.6 fL Normal 80-94 [facility] Comment on above: Performed By: #### L 100.0100, L500.4050, L500.4100 #### [facility] [address] [place], [address] Monocytes/100 WBC (Bld) 6.5 % Normal 0-10 [facility] Comment on above: Performed By: #### L 100.0100, L500.4050, L500.4100 #### [facility] [address] [place], [address] Neutrophils/100 WBC (Bld) 61.4 % Normal 47-70 [facility] Comment on above: Performed By: #### L 100.0100, L500.4050, L500.4100 #### [facility] [address] [place], [address] Nucleated RBC (Bld) [#/Vol] 0 10*3/uL Normal 0-5 [facility] Comment on above: Performed By: #### L 100.0100, L500.4050, L500.4100 #### [facility] [address] [place], [address] Platelet mean volume (Bld) [Entitic vol] 9.6 fL Normal 6.2-12.0 [facility] Comment on above: Performed By: #### L 100.0100, L500.4050, L500.4100 #### [facility] [address] [place], [address] Platelets (Bld) [#/Vol] 251 10*3/uL Normal 150-450 [facility] Comment on above: Performed By: #### L 100.0100, L500.4050, L500.4100 #### [facility] [address] [place], [address] RBC (Bld) [#/Vol] 4.80 10*6/uL Normal 4.6-6.2 [facility] Comment on above: Performed By: #### L 100.0100, L500.4050, L500.4100 #### [facility] [address] [place], [address] RDW SD 43.9 fl Normal 35.1-43.9 [facility] Comment on above: Performed By: #### L 100.0100, L500.4050, L500.4100 #### [facility] [address] [place], [address] WBC (Bld) [#/Vol] 7.1 10*3/uL Normal 4.4-11.0 [facility] Comment on above: Performed By: #### L 100.0100, L500.4050, L500.4100 #### [facility] [address] [place], [address] Comprehensive Metabolic Prof [facility] 06-14-2025 Albumin [Mass/Vol] 4.4 g/dL Normal 3.4-4.8 [facility] Comment on above: Performed By: #### L 100.0100, L500.4050, L500.4100 #### [facility] [address] [place], [address] Albumin/Globulin [Mass ratio] 1.4 {ratio} Normal 0.9-2.4 [facility] Comment on above: Performed By: #### L 100.0100, L500.4050, L500.4100 #### [facility] [address] [place], [address] ALK PHOS 61 U/L Normal 40-129 [facility] Comment on above: Performed By: #### L 100.0100, L500.4050, L500.4100 #### [facility] [address] [place], [address] ALT [Catalytic activity/Vol] 18 U/L Normal <=46 [facility] Comment on above: Performed By: #### L 100.0100, L500.4050, L500.4100 #### [facility] [address] [place], [address] AST [Catalytic activity/Vol] 21 U/L Normal <=37 [facility] Comment on above: Result Comment: Hemo lysis present, Results??could be affected. ?? Performed By: #### L 100.0100, L500.4050, L500.4100 #### [facility] [address] [place], [address] Bilirubin [Mass/Vol] 0.82 mg/dL Normal 0.00-1.30 [facility] Comment on above: Performed By: #### L 100.0100, L500.4050, L500.4100 #### [facility] [address] [place], [address] BUN/CRE 16.7 RATIO Normal 10-20 [facility] Comment on above: Performed By: #### L 100.0100, L500.4050, L500.4100 #### [facility] [address] [place], [address] Calcium [Mass/Vol] 9.4 mg/dL Normal 7.6-11.0 [facility] Comment on above: Performed By: #### L 100.0100, L500.4050, L500.4100 #### [facility] [address] [place], [address] Chloride [Moles/Vol] 101 mmol/L Normal 98-108 [facility] Comment on above: Performed By: #### L 100.0100, L500.4050, L500.4100 #### [facility] [address] [place], [address] CO2 [Moles/Vol] 24.0 mmol/L Normal 21.0-32.0 [facility] Comment on above: Performed By: #### L 100.0100, L500.4050, L500.4100 #### [facility] [address] [place], [address] Creatinine [Mass/Vol] 1.11 mg/dL Normal 0.70-1.20 [facility] Comment on above: Performed By: #### L 100.0100, L500.4050, L500.4100 #### [facility] [address] [place], [address] GAP 12 Normal 5-15 [facility] Comment on above: Performed By: #### L 100.0100, L500.4050, L500.4100 #### [facility] [address] [place], [address] GFR/1.73 sq M.predicted among non-blacks MDRD (S/P/Bld) [Vol rate/Area] 73 mL/min/{1.73_m2} Normal >60 [facility] Comment on above: Result Comment: mL/m in/1.73m2 CKD-EPI Creatinine Equation (2020) Performed By: #### L 100.0100, L500.4050, L500.4100 #### [facility] [address] [place], [address] Globulin (S) [Mass/Vol] 3.2 g/dL Normal 2.2-4.2 [facility] Comment on above: Performed By: #### L 100.0100, L500.4050, L500.4100 #### [facility] [address] [place], [address] Glucose [Mass/Vol] 88 mg/dL Normal 70-99 [facility] Comment on above: Performed By: #### L 100.0100, L500.4050, L500.4100 #### [facility] [address] [place], [address] Potassium [Moles/Vol] 4.3 mmol/L Normal 3.3-5.1 [facility] Comment on above: Result Comment: Hemo lysis present, Results??could be affected. ?? Performed By: #### L 100.0100, L500.4050, L500.4100 #### [facility] [address] [place], [address] Sodium [Moles/Vol] 137 mmol/L Normal 133-145 [facility] Comment on above: Performed By: #### L 100.0100, L500.4050, L500.4100 #### [facility] [address] [place], [address] T PROT 7.6 g/dL Normal 5.9-8.4 [facility] Comment on above: Performed By: #### L 100.0100, L500.4050, L500.4100 #### [facility] [address] [place], [address] Urea nitrogen [Mass/Vol] 19 mg/dL Normal 4-19 [facility] Comment on above: Performed By: #### L 100.0100, L500.4050, L500.4100 #### [facility] [address] [place], [address] Internal Medicine Office Vis [facility] 06-14-2025 Internal Medicine Office Visit [facility] Internal Medicine [address] [place] [address] [place] [address] OFFICE VISIT Date of Service: 06/14/25 MR#: [id number] Acct: [id number] Name: ATA ROBERTO Rep #: [id number] : 1960 Provider: Dr. Trinidad lira MD Age/Sex: 64/M [place] [facility] Status: Signed Intake Vital Signs 01/26/25 15:11 06/14/25 12:17 06/14/25 15:18 06/14/25 15:19 06/14/25 15:20 Height 5 ft 4 in BP 110/70 112/58 L 132/78 H 98/58 L Blood Pressure Location Lt brachial Rt brachial Rt brachial Rt brachial Position Sitting Supine Sitting Standing Respiration 18 Pulse 102 H 104 H 100 115 H Pulse Source Monitor Monitor Monitor Monitor Pulse Oximetry (%) 96 97 97 98 Oxygen Delivery Method room air room air room air room air Intake Visit Reasons: HEART PALPITATIONS Chief Complaint: Acute visit. Feels unwell. 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: No Is patient in pain?: No Allergies No Known Allergies Allergy (Verified 06/14/25 11:58) Medications ???Medication ???Instructions ???Recorded ???Confirmed ???Type metformin 1,000 mg tablet 1,000 mg PO BID #180 tabs 08/19/24 06/14/25 Rx empagliflozin 25 mg tablet See Rx Instructions .Route 5 06/14/25 Rx (Jardiance) .COMPLEX #90 tabs aspirin 81 mg tablet,delayed 81 mg PO QDAY 01/26/25 06/14/25 Hi story release (Adult Low Dose Aspirin) tamsulosin 0.4 mg capsule 0.4 mg PO QHS #90 caps 04/20/25 Rx atorvastatin 10 mg tablet 10 mg PO QHS #90 TABLETS 04/27/25 06/14/25 Rx tirzepatide 5 mg/0.5 mL 5 mg (0.5 mL) subcut QWEEK 3 06/0906/14/25 Rx subcutaneous pen injector months #6.5 mL fluoxetine 20 mg capsule 20 mg PO BID #60 caps 06/14/25 Rx hydroxyzine HCl 25 mg tablet 25 mg PO BID PRN anxiety #60 tabs 06/14/25 Rx Have you fallen in the past year?: No PFSH Medical History (Updated 06/15/25 @ 15:[address] Trinidad Lobo MD) Tachycardia Elevated troponin Screening for cardiovascular condition Generalized anxiety disorder with panic attacks Dizziness Malaise and fatigue Palpitations Dyspnea Skin mole Hematuria BPH (benign prostatic hyperplasia) Splenic artery aneurysm Left ear pain Preventative health care Health care maintenance Hyperlipidemia Obesity (BMI 30-39.9) Type 2 diabetes mellitus Encounter for preventative adult health care examination Anxiety and depression High cholesterol Diabetes Surgical History History of herniorrhaphy Family History Mother Arthritis Melanoma Osteoporosis Father Diabetes Heart disease Hypertension High cholesterol Other Depression Social History Smoking Status: Never smoker alcohol intake: current alcohol intake frequency: holidays/special occasions only Alcohol type: beer substance use type: does not use what type of physical activity do you participate in: none HPI HPI Chief Complaint: Acute visit. Feels unwell. Details: ATA ROBERTO, is a 64-year-old male with a history of anxiety, presenting with acute onset of fatigue, dyspnea, and tremors. The patient reports a one-month history of significant fatigue, shortness of breath and tremors. He describes waking up feeling tired and experiencing difficulty breathing, which he believes may be contributing to anxiety. He also reports feeling weak and tired throughout the day, with a need to sit down frequently due to fatigue. These symptoms have been persistent and have affected his ability to function normally, including interacting with his grandchildren. He notes a loss of luis and a change in his usual demeanor. The patient initially attributed the onset of these symptoms to a change in his Mounjaro dosage. He reports that after increasing the dosage to 7.5 mg, he experienced severe shaking and an inability to function. He has since stopped the 7.5 mg weekly but symptoms have persisted.. He also reports new onset of dry mouth and cold extremities. He denies any changes in urination or nasal congestion, but reports occasional diarrhea which is not new. He also reports dizziness upon standing. The patient has a history of anxiety and was previously on fluoxetine, which he discontinued several years ago. He reports that the medication was effective at the time, but he is unsure if it would be helpful now. He also has a history of prostate issues and is currently on tamsulosin, which he takes at night. He denies any changes in his prostate symptoms. The patient has been under significant stress recently, with a new grandchild and another grandchild with seizures. He also reports a recent trip to [place], which he found (more content not included)... Normal [facility] L501.4021on 06-14-2025 Trop T High Sen 19 ng/L Normal <=22 [facility] Comment on above: Performed By: #### L 100.0100, L500.4050, L500.4100 #### [facility] [address] [place], [address] Trop T High Sen 23 ng/L High <=22 [facility] Comment on above: Performed By: #### L 100.0100, L500.4050, L500.4100 #### [facility] [address] [place], [address] T4 Free Directon 06-14-2025 T4 FREE DIRECT 1.30 ng/dL Normal 0.76-1.46 [facility] Comment on above: Performed By: #### L 100.0100, L500.4050, L500.4100 #### [facility] [address] [facility] [address] Thyroid Stim Hormone (TSH)on 06-14-2025 TSH 1.350 uIU/mL Normal 0.300-4.200 [facility] Comment on above: Performed By: #### L 100.0100, L500.4050, L500.4100 #### [facility] [address] [place], [address] Urinalysis, Completeon 06-14 BACTERIA 0 SEEN Normal None Seen [facility] Comment on above: Order Comment: COLLE CTOR TO SPECIFY Performed By: #### L 100.0100, L500.4050, L501.4021, L501.9520, L506.0400, L400.0001 #### [facility] [address] [place], [address] EPI,SQUAMOUS 0 SEEN Normal 0-5 [facility] Comment on above: Order Comment: COLLE CTOR TO SPECIFY Performed By: #### L 100.0100, L500.4050, L501.4021, L501.9520, L506.0400, L400.0001 #### [facility] [address] [place], [address] Mucus Ql (Urine sed) 0 SEEN Normal [facility] Comment on above: Order Comment: COLLE CTOR TO SPECIFY Performed By: #### L 100.0100, L500.4050, L501.4021, L501.9520, L506.0400, L400.0001 #### [facility] [address] [place], [address] RBC 0 SEEN Normal 0-5 [facility] Comment on above: Order Comment: COLLE CTOR TO SPECIFY Performed By: #### L 100.0100, L500.4050, L501.4021, L501.9520, L506.0400, L400.0001 #### [facility] [address] [place], [address] WBC 0 SEEN Normal [address] [place] [address] Comment on above: Order Comment: COLLE CTOR TO SPECIFY Performed By: #### L 100.0100, L500.4050, L501.4021, L501.9520, L506.0400, L400.0001 #### [facility] [address] [place], [place], [address] Hemoglobin A1con 04-27-2025 HbA1c (Bld) [Mass fraction] 6.9 % High <=5.6 [facility] Comment on above: Result Comment: Norm al < 5.7 % Prediabetic 5.7 - 6.4 % Diabetic >or= 6.5 % Please note range changes. Performed By: #### L 501.9998 #### [facility] [address] [place], [address] Hemoglobin A1c percentageOrd ered By: Trinidad Lobo on 04-27-2025 HbA1c (Bld) [Mass fraction] 6.9 % High <5.7 [facility] Comment on above: Normal < 5.7 % Predi abetic 5.7 - 6.4 % Diabetic >or= 6.5 % Please note range changes. Absolute lymphocyte countOrd ered By: Trinidad Lobo on 01-26-2025 Lymphocytes Auto (Unsp spec) [#/Vol] 2.66 10*3/uL 0.83-4.51 [facility] Absolute neutrophil countOrd ered By: Trinidad Lobo on 01-26-2025 Neutrophils (Bld) [#/Vol] 5.1 10*3/uL 2.0-7.7 [facility] Anion gap in Serum or Plasma Ordered By: Trinidad Lobo on 01-26-2025 Anion gap [Moles/Vol] 13 mmol/L 5-15 [facility] Automated lymphocyte count a s percentage of total leukocytesOrdered By: Trinidad Lobo on 01-26-2025 Lymphocytes/100 WBC Auto (Unsp spec) 31.3 % 19-41 [facility] BUN/creatinine ratioOrdered By: Trinidad Lobo on 01-26-2025 Urea nitrogen/Creatinine [Mass ratio] 11.8 mg/mg 10-20 [facility] Basophil percentageOrdered B y: Trinidad Lobo on 01-26-2025 Basophils/100 WBC (Bld) 0.5 % 0-1 [facility] Bilirubin, totalOrdered By: Trinidad Lobo on 01-26-2025 Bilirubin [Mass/Vol] 0.72 mg/dL 0.00-1.30 [facility] CBC W/Diff, Automatedon 01-15 Absolute Lymph 2.66 X10 3/uL Normal 0.83-4.51 [facility] Comment on above: Performed By: #### L 100.0100, L500.4050, L500.4100 #### [facility] [address] [place], [address] Absolute Neut 5.1 X10 3/uL Normal 2.0-7.7 [facility] Comment on above: Performed By: #### L 100.0100, L500.4050, L500.4100 #### [facility] [address] [place], [address] Basophils/100 WBC (Bld) 0.5 % Normal 0-1 [facility] Comment on above: Performed By: #### L 100.0100, L500.4050, L500.4100 #### [facility] [address] [place], [address] Eosinophils/100 WBC (Bld) 1.1 % Normal 0-5 [facility] Comment on above: Performed By: #### L 100.0100, L500.4050, L500.4100 #### [facility] [address] [place], [address] Erythrocyte distribution width (RBC) [Ratio] 13.0 % Normal 11.6-14.6 [facility] Comment on above: Performed By: #### L 100.0100, L500.4050, L500.4100 #### [facility] [address] [place], [address] Hematocrit (Bld) [Volume fraction] 42.6 % Normal 40-54 [facility] Comment on above: Performed By: #### L 100.0100, L500.4050, L500.4100 #### [facility] [address] [place], [address] Hemoglobin (Bld) [Mass/Vol] 14.2 g/dL Normal 13.0-16.5 [facility] Comment on above: Performed By: #### L 100.0100, L500.4050, L500.4100 #### [facility] [address] [place], [address] IG% 0.700 Normal 0.0-0.9 [facility] Comment on above: Result Comment: IG% - Immature Granulocytes (promyelocytes, myelocytes and metamyelocytes) > 1% indicates that a LEFT SHIFT is Present. Performed By: #### L 100.0100, L500.4050, L500.4100 #### [facility] [address] [place], [address] Lymphocytes/100 WBC (Bld) 31.3 % Normal 19-41 [facility] Comment on above: Performed By: #### L 100.0100, L500.4050, L500.4100 #### [facility] [address] [place], [address] MCH (RBC) [Entitic mass] 29.9 pg Normal 27.0-32.0 [facility] Comment on above: Performed By: #### L 100.0100, L500.4050, L500.4100 #### [facility] [address] [place], [address] MCHC (RBC) [Mass/Vol] 33.3 g/dL Normal 32-36 [facility] Comment on above: Performed By: #### L 100.0100, L500.4050, L500.4100 #### [facility] [address] [place], [address] MCV (RBC) [Entitic vol] 89.7 fL Normal 80-94 [facility] Comment on above: Performed By: #### L 100.0100, L500.4050, L500.4100 #### [facility] [address] [place], [address] Monocytes/100 WBC (Bld) 6.8 % Normal 0-10 [facility] Comment on above: Performed By: #### L 100.0100, L500.4050, L500.4100 #### [facility] [address] [place], [address] Neutrophils/100 WBC (Bld) 59.6 % Normal 47-70 [facility] Comment on above: Performed By: #### L 100.0100, L500.4050, L500.4100 #### [facility] [address] [place], [address] Nucleated RBC (Bld) [#/Vol] 0 10*3/uL Normal 0-5 [facility] Comment on above: Performed By: #### L 100.0100, L500.4050, L500.4100 #### [facility] [address] [place], [address] Platelet mean volume (Bld) [Entitic vol] 9.8 fL Normal 6.2-12.0 [facility] Comment on above: Performed By: #### L 100.0100, L500.4050, L500.4100 #### [facility] [address] [place], [address] Platelets (Bld) [#/Vol] 247 10*3/uL Normal 150-450 [facility] Comment on above: Performed By: #### L 100.0100, L500.4050, L500.4100 #### [facility] [address] [place], [address] RBC (Bld) [#/Vol] 4.75 10*6/uL Normal 4.6-6.2 [facility] Comment on above: Performed By: #### L 100.0100, L500.4050, L500.4100 #### [facility] [address] [place], [address] RDW SD 42.7 fl Normal 35.1-43.9 [facility] Comment on above: Performed By: #### L 100.0100, L500.4050, L500.4100 #### [facility] [address] [place], [address] WBC (Bld) [#/Vol] 8.5 10*3/uL Normal 4.4-11.0 [facility] Comment on above: Performed By: #### L 100.0100, L500.4050, L500.4100 #### [facility] [address] [place], [address] Calculated very low density lipoprotein (VLDL) cholesterol measurementOrdered By: Trinidad Lobo on 01-26-2025 Calculated very low density lipoprotein (VLDL) cholesterol measurement 51 mg/dL High 5-40 [facility] Carbon dioxide, total [Moles /volume] in Central venous bloodOrdered By: Trinidad Lobo on 01-26-2025 CO2 [Moles/Vol] 23.3 mmol/L 21.0-32.0 [facility] Chloride assayOrdered By: Robin Lobo on 01-26-2025 Chloride [Moles/Vol] 102 mmol/L 98-108 [facility] Comprehensive Metabolic Prof ilon 01-26-2025 Albumin [Mass/Vol] 4.6 g/dL Normal 3.4-4.8 [facility] Comment on above: Performed By: #### L 100.0100, L500.4050, L500.4100 #### [facility] [address] [place], [address] Albumin/Globulin [Mass ratio] 1.4 {ratio} Normal 0.9-2.4 [facility] Comment on above: Performed By: #### L 100.0100, L500.4050, L500.4100 #### [facility] [address] [place], [address] ALK PHOS 69 U/L Normal 40-129 [facility] Comment on above: Performed By: #### L 100.0100, L500.4050, L500.4100 #### [facility] [address] [place], [address] ALT [Catalytic activity/Vol] 18 U/L Normal <=46 [facility] Comment on above: Performed By: #### L 100.0100, L500.4050, L500.4100 #### [facility] [address] [place], [address] AST [Catalytic activity/Vol] 23 U/L Normal <=37 [facility] Comment on above: Performed By: #### L 100.0100, L500.4050, L500.4100 #### [facility] [address] [place], [address] Bilirubin [Mass/Vol] 0.72 mg/dL Normal 0.00-1.30 [facility] Comment on above: Performed By: #### L 100.0100, L500.4050, L500.4100 #### [facility] [address] [place], [address] BUN/CRE 11.8 RATIO Normal 10-20 [facility] Comment on above: Performed By: #### L 100.0100, L500.4050, L500.4100 #### [facility] [address] [place], [address] Calcium [Mass/Vol] 9.6 mg/dL Normal 7.6-11.0 [facility] Comment on above: Performed By: #### L 100.0100, L500.4050, L500.4100 #### [facility] [address] [place], [address] Chloride [Moles/Vol] 102 mmol/L Normal 98-108 [facility] Comment on above: Performed By: #### L 100.0100, L500.4050, L500.4100 #### [facility] [address] [place], [address] CO2 [Moles/Vol] 23.3 mmol/L Normal 21.0-32.0 [facility] Comment on above: Performed By: #### L 100.0100, L500.4050, L500.4100 #### [facility] [address] [place], [address] Creatinine [Mass/Vol] 1.31 mg/dL High 0.70-1.20 [facility] Comment on above: Performed By: #### L 100.0100, L500.4050, L500.4100 #### [facility] [address] [place], [address] GAP 13 Normal 5-15 [facility] Comment on above: Performed By: #### L 100.0100, L500.4050, L500.4100 #### [facility] [address] [place], [address] GFR/1.73 sq M.predicted among non-blacks MDRD (S/P/Bld) [Vol rate/Area] 60 mL/min/{1.73_m2} Normal >60 [facility] Comment on above: Result Comment: mL/m in/1.73m2 CKD-EPI Creatinine Equation (2020) Performed By: #### L 100.0100, L500.4050, L500.4100 #### [facility] [address] [place], [address] Globulin (S) [Mass/Vol] 3.3 g/dL Normal 2.2-4.2 [facility] Comment on above: Performed By: #### L 100.0100, L500.4050, L500.4100 #### [facility] [address] [place], [address] Glucose [Mass/Vol] 92 mg/dL Normal 70-99 [facility] Comment on above: Performed By: #### L 100.0100, L500.4050, L500.4100 #### [facility] [address] [place], [address] Potassium [Moles/Vol] 4.1 mmol/L Normal 3.3-5.1 [facility] Comment on above: Performed By: #### L 100.0100, L500.4050, L500.4100 #### [facility] [address] [place], [address] Sodium [Moles/Vol] 138 mmol/L Normal 133-145 [facility] Comment on above: Performed By: #### L 100.0100, L500.4050, L500.4100 #### [facility] [address] [place], [address] T PROT 7.9 g/dL Normal 5.9-8.4 [facility] Comment on above: Performed By: #### L 100.0100, L500.4050, L500.4100 #### [facility] [address] [place], [address] Urea nitrogen [Mass/Vol] 16 mg/dL Normal 4-19 [facility] Comment on above: Performed By: #### L 100.0100, L500.4050, L500.4100 #### [facility] [address] [place], [address] Eosinophil percentageOrdered By: Trinidad Lobo on 01-26-2025 Eosinophils/100 WBC (Bld) 1.1 % 0-5 [facility] Erythrocyte distribution wid th ratioOrdered By: Trinidad Lobo on 01-26-2025 Erythrocyte distribution width (RBC) [Ratio] 13.0 % 11.6-14.6 [facility] Erythrocyte distribution wid th standard deviationOrdered By: Trinidad Loob on 01-26-2025 Erythrocyte distribution width (RBC) [Ratio] 42.7 fl 35.1-43.9 [facility] Glomerular filtration rate ( GFR) estimation/1.73 sq m using serum, plasma, or whole bOrdered By: Trinidad Lobo on 01-26-2025 GFR/1.73 sq M.predicted among non-blacks MDRD (S/P/Bld) [Vol rate/Area] 60 mL/min/{1.73_m2} >60 [facility] Comment on above: mL/min/1.73m2 CKD-EP I Creatinine Equation (2020) Hematocrit Auto (Bld) [Volum e fraction]Ordered By: Trinidad Lobo on 01-26-2025 Hematocrit (Bld) [Volume fraction] 42.6 % 40-54 [facility] Hemoglobin measurementOrdere d By: Trinidad Lobo on 01-26-2025 Hemoglobin (Bld) [Mass/Vol] 14.2 g/dL 13.0-16.5 [facility] Immature granulocytes/100 WB C Auto (Bld)Ordered By: Trinidad Lobo on 01-26-2025 Immature granulocytes/100 WBC (Bld) 0.700 % 0.0-0.9 [facility] Comment on above: IG% - Immature Granu locytes (promyelocytes, myelocytes and metamyelocytes) > 1% indicates that a LEFT SHIFT is Present. Internal Medicine Office Vis iton 01-26-2025 Internal Medicine Office Visit [facility] [address] [place], [place] [address] OFFICE VISIT Date of Service: 01/26/25 MR#: [id number] Acct: [id number] Name: ATA ROBERTO Rep #: [id number] : 1960 Provider: Dr. Trinidad lira MD Age/Sex: 64/M [place] [facility] Status: Signed Intake Vital Signs 04/14/24 14:29 01/26/25 15:11 Height 5 ft 4 in 5 ft 4 in Weight: 177 lb BMI 30.4 BP 110/60 Blood Pressure Location Lt brachial Position Sitting Respiration 16 Pulse 96 Pulse Source Monitor Temp 98.3 F Temp Source Temporal Pulse Oximetry (%) 98 Oxygen Delivery Method room air Intake Visit Reasons: 6 M FU Chief Complaint: Yearly/follow-up chronic conditions 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: No Is patient in pain?: No Allergies No Known Allergies Allergy (Verified 01/26/25 14:50) Medications ???Medication ???Instructions ???Recorded ???Confirmed ???Type metformin 1,000 mg tablet 1,000 mg PO BID #180 tabs 08/19/24 01/26/25 Rx tirzepatide 5 mg/0.5 mL 5 mg (0.5 mL) subcut QWEEK 3 09/0901/26/25 Rx subcutaneous pen injector months #6.5 mL (Mounjaro) empagliflozin 25 mg tablet See Rx Instructions .Route 5 01/26/25 Rx (Jardiance) .COMPLEX #90 tabs atorvastatin 10 mg tablet 10 mg PO QHS #90 TABLETS 01/16/25 01/26/25 Rx tamsulosin 0.4 mg capsule 0.4 mg PO QHS #90 caps 01/16/25 Rx aspirin 81 mg tablet,delayed 81 mg PO QDAY 01/26/25 01/26/25 Hi story release (Adult Low Dose Aspirin) Have you fallen in the past year?: No Nurse's Note: Pt states that he is fasting today for labs. Pt has skin tags he wants looked at on his face. [facility] Medical History (Updated 01/26/25 @ 15:[address] Trinidad Lobo MD) Skin mole Hematuria BPH (benign prostatic hyperplasia) Splenic artery aneurysm Left ear pain Preventative health care Health care maintenance Hyperlipidemia Obesity (BMI 30-39.9) Type 2 diabetes mellitus Encounter for preventative adult health care examination Anxiety and depression High cholesterol Diabetes Surgical History History of herniorrhaphy Family History Mother Arthritis Melanoma Osteoporosis Father Diabetes Heart disease Hypertension High cholesterol Other Depression Social History Smoking Status: Never smoker alcohol intake: current alcohol intake frequency: holidays/special occasions only Alcohol type: beer substance use type: does not use what type of physical activity do you participate in: none HPI HPI Chief Complaint: Yearly/follow-up chronic conditions Details: TAA ROBERTO, is a 64 M who presents to the office today for yearly/follow-up chronic conditions. No acute concerns at this time. History of diabetes mellitus type 2, A1c today is at 5.9. Currently on Jardiance, metformin and Trulicity. Tolerating medications well. When he eats, no significant concerns for hypoglycemia. Was referred to dermatology last year but did not follow through, has some areas of concern on his face that he would like evaluated. No known history of skin cancer. Last PSA was within range, documented history of BPH and no concerns with urination. No tobacco or alcohol abuse. History of colonoscopy and next due in about 4 to 5 years. ROS Const Constitutional: No body ache, chills, excessive sweating, fatigue, fever(s), frequent falls, headache(s), snoring, weakness, sleep problems or change in appetite Eyes Eyes: No blurry vision, change in vision, bulging eyes, floaters, visual disturbances, eye pain or Light sensitivity ENT ENT: No abnormal hearing, ear or mastoid pain, tinnitus, balance problems, nosebleed/epistaxis , nasal congestion, headache(s), neck pain or sore throat Resp Respiratory: No cough, excessive phlegm production, pain on inspiration, shortness of breath, snoring or wheezing Cardio Cardiology: No chest pain at rest, chest pain with exertion, excessive sweating, shortness of breath, dyspnea on exertion, lightheadedness, orthopnea or palpitations Gastro GI: No abdominal pain, change in bowel habits, constipation, cramping, diarrhea, nausea/dyspepsia or vomiting Genitourinary Male: No burning urination, painful urination, urinary incontinence or urinary frequency Musc Musculoskeletal: No abnormal gait, joint pain, back pain, limited range of motion, neck pain or numbness Skin Skin: No dry skin, redness, excessive hair growth, yellowing of the eye, lesions, itchy eyes, rash or wounds Neuro Neurology: No abnormal gait, abnormal hearing, behavioral changes, unsteady gait/balance, weakness, frequent falls, headache(s), memory loss, numbnes (more content not included)... Normal [facility] LDL calc ser/plasOrdered By: Trinidad Lobo on 01-26-2025 Cholesterol in LDL [Mass/Vol] 44 mg/dL [facility] Comment on above: Tejiuocbhc=198-967 m g/dL & Higher Jkbh=327 mg/dL or greater Laboratory - Chemistry and C hemistry - challengeOrdered By: Trinidad Lobo on 01-26-2025 AST [Catalytic activity/Vol] 23 U/L <38 [facility] Laboratory - Hematology and Cell countsOrdered By: Trinidad Lobo on 01-26-2025 HbA1c (Bld) [Mass fraction] 5.9 % 4.2-6.3 [facility] Lipid Profileon 01-26-2025 CHOL:HDL 3.72 Normal [facility] Comment on above: Performed By: #### L 100.0100, L500.4050, L500.4100 #### [facility] [address] [place], [address] Cholesterol [Mass/Vol] 131 mg/dL Normal <=200 [facility] Comment on above: Result Comment: Chol esterol level, Desirable <200 mg/dL Borderline high cholesterol 200-239 mg/dL High cholesterol >=240 mg/dL Recommendations of the NCEP Adult Treatment Panel for the following risk-cutoff thresholds for the [place] population. Performed By: #### L 100.0100, L500.4050, L500.4100 #### [facility] [address] [place], [address] Cholesterol in HDL [Mass/Vol] 35 mg/dL Low [facility] Comment on above: Result Comment: Marge onal Cholesterol Education Program (NCEP) guidelines: <40 mg/dL: Low HDL-cholesterol (major risk factor for CHD) >= 60 mg/dL: High HDL-cholesterol (negative risk factor for CHD) HDL-cholesterol is affected by a number of factors, e.g. smoking, exercise, hormones, sex and age. Performed By: #### L 100.0100, L500.4050, L500.4100 #### [facility] [address] [place], [address] Cholesterol in LDL [Mass/Vol] 44 mg/dL Normal [facility] Comment on above: Result Comment: Bord ilacym=280-609 mg/dL Higher Ykky=465 mg/dL or greater Performed By: #### L 100.0100, L500.4050, L500.4100 #### [facility] [address] [place], [address] Cholesterol in VLDL [Mass/Vol] 51 mg/dL High 5-40 [facility] Comment on above: Performed By: #### L 100.0100, L500.4050, [id number] #### [facility] [address] [place], [address] Triglyceride [Mass/Vol] 257 mg/dL High [facility] Comment on above: Result Comment: The drugs N-Acetylcysteine and Metamizole may falsely depress this assay. Normal range: <150 mg/dL Borderline High: 150-199 mg/dL High: 200-499 mg/dL Very High: >500 mg/dL Performed By: #### L 100.0100, L500.4050, [id number] #### [facility] [address] [place], [address] MCV (mean corpuscular volume ) determinationOrdered By: Trinidad Lobo on 01-26-2025 MCV (RBC) [Entitic vol] 89.7 fL 80-94 [facility] Mean corpuscular hemoglobin (MCH) determinationOrdered By: Trinidad Lobo on 01-26-2025 MCH (RBC) [Entitic mass] 29.9 pg 27.0-32.0 [facility] Mean corpuscular hemoglobin concentration (MCHC) determinationOrdered By: Trinidad Lobo on 01-26-2025 MCHC (RBC) [Mass/Vol] 33.3 g/dL 32-36 [facility] Mean platelet volume determi nationOrdered By: Trinidad Lobo on 01-26-2025 Platelet mean volume (Bld) [Entitic vol] 9.8 fL 6.2-12.0 [facility] Monocyte percentageOrdered B y: Trinidad Lobo on 01-26-2025 Monocytes/100 WBC (Bld) 6.8 % 0-10 [facility] Neutrophil percentageOrdered By: Trinidad Lobo on 01-26-2025 Neutrophils/100 WBC (Bld) 59.6 % 47-70 [facility] Nucleated red blood cell per centageOrdered By: Trinidad Lobo on 01-26-2025 Nucleated RBC/100 WBC (Bld) [Ratio] 0 % 0-5 [facility] Platelet countOrdered By: Robin Lobo on 01-26-2025 Platelets (Bld) [#/Vol] 247 10*3/uL 150-450 [facility] Potassium measurement (mass/ volume)Ordered By: Trinidad Lobo on 01-26-2025 Potassium (Unsp spec) [Mass/Vol] 4.1 mmol/L 3.3-5.1 [facility] RBC Auto (Bld) [#/Vol]Ordere d By: Trinidad Lobo on 01-26-2025 RBC (Bld) [#/Vol] 4.75 10*6/uL 4.6-6.2 [facility] Screening total cholesterol/ high density lipoprotein (HDL) cholesterol ratioOrdered By: Trinidad Lobo on 01-26-2025 Cholesterol.total/Cholest ebony in HDL [Mass ratio] 3.72 {ratio} [facility] Serum creatinine measurement (mass/volume)Ordered By: Trinidad Lobo on 01-26-2025 Creatinine [Mass/Vol] 1.31 mg/dL High 0.70-1.20 [facility] Serum globulin measurementOr dered By: Trinidad Lobo on 01-26-2025 Globulin (S) [Mass/Vol] 3.3 g/dL 2.2-4.2 [facility] Serum glucose measurement (m ass/volume)Ordered By: Trinidad Lobo on 01-26-2025 Glucose [Mass/Vol] 92 mg/dL 70-99 [facility] Serum or plasma alanine peters otransferase (ALT) measurementOrdered By: Trinidad Lobo on 01-26-2025 ALT [Catalytic activity/Vol] 18 U/L <47 [facility] Serum or plasma albumin anne marie urement (mass/volume)Ordered By: Trinidad Lobo on 01-26-2025 Albumin [Mass/Vol] 4.6 g/dL 3.4-4.8 [facility] Serum or plasma albumin/glob ulin mass ratioOrdered By: Trinidad Lobo 01-26-2025 Albumin/Globulin [Mass ratio] 1.4 {ratio} 0.9-2.4 [facility] Serum or plasma alkaline arnold sphatase measurementOrdered By: Trinidad Lobo on 01-26-2025 ALP [Catalytic activity/Vol] 69 U/L 40-129 [facility] Serum or plasma calcium anne marie urement (mass/volume)Ordered By: Trinidad Lobo 01-26-2025 Calcium [Mass/Vol] 9.6 mg/dL 7.6-11.0 [facility] Serum or plasma cholesterol in HDL measurement (mass/volume)Ordered By: Trinidad Lobo 01-26-2025 Cholesterol in HDL [Mass/Vol] 35 mg/dL Low >40 [facility] Comment on above: National Cholesterol Education Program (NCEP) guidelines:<40 mg/dL: Low HDL-cholesterol (major risk factor for CHD)>= 60 mg/dL: High HDL-cholesterol (negative risk factor for CHD)HDL-cholesterol is affected by a number of factors, e.g. smoking, exercise, hormones, sex and age. Serum or plasma cholesterol measurement (mass/volume)Ordered By: Trinidad Lobo on 01-26-2025 Cholesterol [Mass/Vol] 131 mg/dL <201 [facility] Comment on above: Cholesterol level, D esirable <200 mg/dLBorderline high cholesterol 200-239 mg/dLHigh cholesterol >=240 mg/dLRecommendations of the NCEP Adult Treatment Panel for the following risk-cutoff thresholds for the [place] population. Serum or plasma urea nitroge n measurement (mass/volume)Ordered By: Trinidad Lobo on 01-26-2025 Urea nitrogen [Mass/Vol] 16 mg/dL 4-19 [facility] Sodium levelOrdered By: Valery kyrie Lashell on 01-26-2025 Sodium [Moles/Vol] 138 mmol/L 133-145 [facility] Total proteinOrdered By: Jim jameydarlene Lobo on 01-26-2025 Protein [Mass/Vol] 7.9 g/dL 5.9-8.4 [facility] Triglycerides measurementOrd ered By: Trinidad Lobo on 01-26-2025 Triglyceride [Mass/Vol] 257 mg/dL High <199 [facility] Comment on above: The drugs N-Acetylcy steine and Metamizole may falsely depress this assay. Normal range: <150 mg/dLBorderline High: 150-199 mg/dLHigh: 200-499 mg/dLVery High: >500 mg/dL White blood cell (WBC) count Ordered By: Trinidad Lobo on 01-26-2025 WBC (Bld) [#/Vol] 8.5 10*3/uL 4.4-11.0 [facility] Basophil percentageOrdered B y: Trinidad Lobo on 10-22-2023 Basophil percentage 0-5 SEEN /hpf 0-5 [facility] Bilirubin Test strip Ql (U)O rdered By: Trinidad Lobo on 10-22-2023 Bilirubin Ql (U) Negative Negative [facility] Ketones Test strip Ql (U)Ord ered By: Trinidad Lobo on 10-22-2023 Ketones Ql (U) Negative Negative [facility] Mucus LM Ql (Urine sed)Order ed By: Trinidad Lobo on 10-22-2023 Mucus Ql (Urine sed) 0 SEEN [facility] Nit[facility] Test strip Ql (U)Ord ered By: Trinidad Lobo on 10-22-2023 Nitrite Ql (U) Negative Negative [facility] No Panel InformationOrdered By: Trinidad Lobo on 10-22-2023 Urine RBC 0 SEEN /hpf 0-5 [facility] Protein Test strip Ql (U)Ord ered By: Trinidad Lobo on 10-22-2023 Protein Ql (U) Negative Negative [facility] Squamous epithelial cells de tection in urine sediment by light microscopyOrdered By: Trinidad Lobo on 10-22-2023 Epithelial cells.squamous LM Ql (Urine sed) 0 SEEN /hpf 0-5 [facility] Urine blood detectionOrdered By: Trinidad Lobo on 10-22-2023 RBC Ql (U) Negative Negative [facility] Urine clarityOrdered By: Jim Lobo on 10-22-2023 Clarity (U) Clear Clear [facility] Urine color determinationOrd ered By: Trinidad Lobo on 10-22-2023 Color (U) Yellow Yellow [facility] Urine glucose detectionOrder ed By: Trinidad Lobo on 10-22-2023 Glucose Ql (U) 1000 mg/dl Normal [facility] Urine leukocyte esterase det ection by dipstickOrdered By: Trinidad Lobo on 10-22-2023 Leukocyte esterase Test strip Ql (U) Negative Negative [facility] Urine pHOrdered By: Robert Lobo on 10-22-2023 pH (U) 5.0 [pH] 5.0 - 8.0 [facility] Urine sediment bacteria coun t by microscopy (number/high power field)Ordered By: Trinidad Lobo on 10-22-2023 Bacteria LM.HPF (Urine sed) [#/Area] 0 /[HPF] None Seen [facility] Urine specific gravity measu rementOrdered By: Trinidad Lobo on 10-22-2023 Specific gravity (U) [Rel density] 1.015 1.002-1.030 [facility] Urine urobilinogen measureme ntOrdered By: Trinidad Lobo on 10-22-2023 Urobilinogen Ql (U) Normal mg/dl Normal [facility] Basophil percentageOrdered B y: Trinidad Lobo on 10-15-2023 Basophil percentage 0-5 SEEN /hpf 0-5 [facility] Bilirubin Test strip Ql (U)O rdered By: Trinidad Lobo on 10-15-2023 Bilirubin Ql (U) Negative Negative [facility] Ketones Test strip Ql (U)Ord ered By: Trinidad Lobo on 10-15-2023 Ketones Ql (U) Negative Negative [facility] Mucus LM Ql (Urine sed)Order ed By: Trinidad Lobo on 10-15-2023 Mucus Ql (Urine sed) 0 SEEN /hpf [facility] Nitrite Test strip Ql (U)Ord ered By: Trinidad Lobo on 10-15-2023 Nitrite Ql (U) Negative Negative [facility] No Panel InformationOrdered By: Trinidad Lobo on 10-15-2023 Urine RBC 10-25 SEEN /hpf 0-5 [facility] Protein Test strip Ql (U)Ord ered By: Trinidad Lobo on 10-15-2023 Protein Ql (U) 15 mg/dl Negative [facility] Squamous epithelial cells de tection in urine sediment by light microscopyOrdered By: Trinidad Lobo on 10-15-2023 Epithelial cells.squamous LM Ql (Urine sed) 0 SEEN /hpf 0-5 [facility] Urine blood detectionOrdered By: Trinidad Lobo on 10-15-2023 RBC Ql (U) 250 /ul Negative [facility] Urine clarityOrdered By: Jim Lobo on 10-15-2023 Clarity (U) Sl. Cloudy Clear [facility] Urine color determinationOrd ered By: Trinidad Lobo on 10-15-2023 Color (U) Yellow Yellow [facility] Urine glucose detectionOrder ed By: Trinidad Lobo on 10-15-2023 Glucose Ql (U) 1000 mg/dl Normal [facility] Urine leukocyte esterase det ection by dipstickOrdered By: Trinidad Lobo on 10-15-2023 Leukocyte esterase Test strip Ql (U) Negative Negative [facility] Urine pHOrdered By: Robert Lobo on 10-15-2023 pH (U) 5.0 [pH] 5.0 - 8.0 [facility] Urine sediment bacteria coun t by microscopy (number/high power field)Ordered By: Trinidad Lobo on 10-15-2023 Bacteria LM.HPF (Urine sed) [#/Area] 0 /[HPF] None Seen [facility] Urine specific gravity measu rementOrdered By: Trinidad Lobo on 10-15-2023 Specific gravity (U) [Rel density] 1.010 1.002-1.030 [facility] Urine urobilinogen measureme ntOrdered By: Trinidad Lobo on 10-15-2023 Urobilinogen Ql (U) Normal mg/dl Normal [facility] Whole blood hemoglobin A1c/t otal hemoglobin ratio (mass fraction)Ordered By: Trinidad Lobo on 10-15-2023 HbA1c (Bld) [Mass fraction] 6.1 % 3.8-5.6 [facility] Comment on above: Normal < 5.7 % Predi abetic 5.7 - 6.4 % Diabetic >or= 6.5 % Please note range changes. Absolute lymphocyte countOrd ered By: Boby Goodson on 10-12-2023 Lymphocytes Auto (Unsp spec) [#/Vol] 2.07 10*3/uL 0.83-4.51 [facility] Automated lymphocyte count a s percentage of total leukocytesOrdered By: Boby Goodson on 10-12-2023 Lymphocytes/100 WBC Auto (Unsp spec) 33.8 % 19-41 [facility] Basophil percentageOrdered B y: Boby Goodson on 10-12-2023 Basophil percentage 0 SEEN /hpf 0-5 [facility] Basophils/100 WBC (Bld) 0.3 % 0-1 [facility] Bilirubin [Mass/Vol] 1.00 mg/dL 0.20-1.00 [facility] Comment on above: For patients on eltr ombopag therapy, use of Dimension [place] TBIL is not recommended. Chloride [Moles/Vol] 103 mmol/L 98-107 [facility] Eosinophils/100 WBC (Bld) 0.8 % 0-5 [facility] Glucose [Mass/Vol] 132 mg/dL 74-106 [facility] Comment on above: Fasting Glucose resu lt greater than or equal to 126 mg/dL suggests DIABETES MELLITUS per A.D.A. criteria. Hemoglobin (Bld) [Mass/Vol] 15.0 g/dL 13.0-16.5 [facility] Monocytes/100 WBC (Bld) 6.7 % 0-10 [facility] Neutrophils (Bld) [#/Vol] 3.5 10*3/uL 2.0-7.7 [facility] Neutrophils/100 WBC (Bld) 57.4 % 47-70 [facility] Potassium [Moles/Vol] 3.8 mmol/L 3.5-5.1 [facility] Protein [Mass/Vol] 8.5 g/dL 6.4-8.2 [facility] Sodium [Moles/Vol] 136 mmol/L 136-145 [facility] WBC (Bld) [#/Vol] 6.1 10*3/uL 4.4-11.0 [facility] Bilirubin Test strip Ql (U)O rdered By: Boby Goodson on 10-12-2023 Bilirubin Ql (U) Negative Negative [facility] Determination of erythrocyte mean corpuscular volume (MCV)Ordered By: Boby Goodson on 10-12-2023 MCV (RBC) [Entitic vol] 89.7 fL 80-94 [facility] Erythrocyte distribution wid th ratioOrdered By: Boby Goodson on 10-12-2023 Erythrocyte distribution width (RBC) [Ratio] 12.7 % 11.6-14.6 [facility] Erythrocyte distribution wid th standard deviationOrdered By: Boby Goodson on 10-12-2023 Erythrocyte distribution width (RBC) [Entitic vol] 41.9 fL 35.1-43.9 [facility] Hematocrit Auto (Bld) [Volum e fraction]Ordered By: Boby Goodson on 10-12-2023 Hematocrit (Bld) [Volume fraction] 44.6 % 40-54 [facility] Immature granulocytes/100 WB C Auto (Bld)Ordered By: Boby Goodson on 10-12-2023 Immature granulocytes/100 WBC (Bld) 1.000 % 0.0-0.9 [facility] Comment on above: IG% - Immature Granu locytes (promyelocytes, myelocytes and metamyelocytes) > 1% indicates that a LEFT SHIFT is Present. Ketones Test strip Ql (U)Ord ered By: Boby Goodson on 10-12-2023 Ketones Ql (U) 5 mg/dl Negative [facility] Laboratory - Chemistry and C hemistry - challengeOrdered By: Boby Goodson on 10-12-2023 Albumin/Globulin [Mass ratio] 1.0 {ratio} 0.9-2.4 [facility] ALP [Catalytic activity/Vol] 73 U/L 45-117 [facility] ALT [Catalytic activity/Vol] 22 U/L 16-61 [facility] CO2 [Moles/Vol] 26.0 mmol/L 21.0-32.0 [facility] Globulin (S) [Mass/Vol] 4.3 g/dL 2.2-4.2 [facility] Lipase [Catalytic activity/Vol] 41 U/L 13-75 [facility] Comment on above: Please note:LIPASE r evised reference range effective 22. New Lipase methodology. Expected to produce lower values than the previous assay method. NEW Reference Range: 13 - 75 U/L Urea nitrogen/Creatinine [Mass ratio] 12.4 mg/mg 10-20 [facility] - Hematology and Cell countsOrdered By: Boby Goodson on 10-12-2023 MCH (RBC) [Entitic mass] 30.2 pg 27.0-32.0 [facility] MCHC (RBC) [Mass/Vol] 33.6 g/dL 32-36 [facility] Nucleated RBC/100 WBC (Bld) [Ratio] 0 % 0-5 [facility] Platelet mean volume (Bld) [Entitic vol] 9.7 fL 6.2-12.0 [facility] Platelets (Bld) [#/Vol] 262 10*3/uL 150-450 [facility] Mucus LM Ql (Urine sed)Order ed By: Boby Goodson on 10-12-2023 Mucus Ql (Urine sed) 0 SEEN /hpf [facility] Nitrite Test strip Ql (U)Ord ered By: Boby Goodson on 10-12-2023 Nitrite Ql (U) Negative Negative [facility] No Panel InformationOrdered By: Boby Goodson on 10-12-2023 Urine RBC 0-5 SEEN /hpf 0-5 [facility] Estimated Creatinine Clearance Calc 58.69 ml/min [facility] Estimated GFR (MDRD) Amer 77 mL/min >60 [facility] Comment on above: GFR Calc Estimated GFR (MDRD) Non-Af Amer 64 mL/min >60 [facility] Comment on above: Non- GFR Calc Protein Test strip Ql (U)Ord ered By: Boby Goodson on 10-12-2023 Protein Ql (U) Negative Negative [facility] RBC Auto (Bld) [#/Vol]Ordere d By: Boby Goodson on 10-12-2023 RBC (Bld) [#/Vol] 4.97 10*6/uL 4.6-6.2 [facility] Serum or plasma calcium anne marie urement (mass/volume)Ordered By: Boby Goodson on 10-12-2023 Calcium [Mass/Vol] 9.4 mg/dL 8.5-10.1 [facility] Serum or plasma creatinine m easurement (mass/volume)Ordered By: Boby Goodson on 10-12-2023 Creatinine [Mass/Vol] 1.21 mg/dL 0.70-1.30 [facility] Comment on above: The validity of the calculated GFR & GFRAA in patients over 70 years has not been determined. Clinical correlation is essential. Serum or plasma urea nitroge n measurement (mass/volume)Ordered By: Boby Goodson on 10-12-2023 Urea nitrogen [Mass/Vol] 15 mg/dL 7-18 [facility] Squamous epithelial cells de tection in urine sediment by light microscopyOrdered By: Boby Goodson on 10-12-2023 Epithelial cells.squamous LM Ql (Urine sed) 0 SEEN /hpf 0-5 [facility] Thin prep Papanicolaou smear with manual screeningOrdered By: Boby Goodson on 10-12-2023 Thin prep Papanicolaou smear with manual screening 4.2 g/dL 3.2-5.0 [facility] Thin prep Papanicolaou smear with manual screening 19 U/L 15-37 [facility] Thin prep Papanicolaou smear with manual screening 7 5-15 [facility] Urine blood detectionOrdered By: Boby Goodson on 10-12-2023 RBC Ql (U) 50 /ul Negative [facility] Urine clarityOrdered By: Kirsten Goodson on 10-12-2023 Clarity (U) Clear Clear [facility] Urine color determinationOrd ered By: Boby Goodson on 10-12-2023 Color (U) Yellow Yellow [facility] Urine glucose detectionOrder ed By: Boby Goodson on 10-12-2023 Glucose Ql (U) 1000 mg/dl Normal [facility] Urine leukocyte esterase det ection by dipstickOrdered By: Boby Goodson on 10-12-2023 Leukocyte esterase Test strip Ql (U) Negative Negative [facility] Urine pHOrdered By: Boby portillo on 10-12-2023 pH (U) 6.0 [pH] 5.0 - 8.0 [facility] Urine sediment bacteria coun t by microscopy (number/high power field)Ordered By: Boby Goodson on 10-12-2023 Bacteria LM.HPF (Urine sed) [#/Area] 0 /[HPF] None Seen [facility] Urine specific gravity measu rementOrdered By: Boby Goodson on 10-12-2023 Specific gravity (U) [Rel density] 1.010 1.002-1.030 [facility] Urine urobilinogen measureme ntOrdered By: Boby Goodson on 10-12-2023 Urobilinogen Ql (U) Normal mg/dl Normal [facility] Absolute lymphocyte countOrd ered By: Trinidad Lobo on 04-27-2023 Lymphocytes Auto (Unsp spec) [#/Vol] 2.02 10*3/uL 0.83-4.51 [facility] Basophil percentageOrdered B y: Trinidad Lobo on 04-27-2023 Basophils/100 WBC (Bld) 0.6 % 0-1 [facility] Bilirubin [Mass/Vol] 0.90 mg/dL 0.20-1.00 [facility] Comment on above: For patients on eltr ombopag therapy, use of [place] TBIL is not recommended. Chloride [Moles/Vol] 103 mmol/L 98-107 [facility] Cholesterol [Mass/Vol] 134 mg/dL <200 [facility] Comment on above: <200 mg/dL Desirable 200-240 mg/dL Borderline >240 mg/dL High Risk Eosinophils/100 WBC (Bld) 1.5 % 0-5 [facility] Glucose [Mass/Vol] 103 mg/dL 74-106 [facility] Comment on above: Fasting Glucose resu lt from 100 to 125 mg/dL suggests IMPAIRED HOMEOSTASIS per A.D.A. criteria. Neutrophils (Bld) [#/Vol] 2.8 10*3/uL 2.0-7.7 [facility] Neutrophils/100 WBC (Bld) 52.7 % 47-70 [facility] Potassium [Moles/Vol] 4.2 mmol/L 3.5-5.1 [facility] Protein [Mass/Vol] 8.4 g/dL 6.4-8.2 [facility] Sodium [Moles/Vol] 137 mmol/L 136-145 [facility] Triglyceride [Mass/Vol] 244 mg/dL <199 [facility] Comment on above: The drugs N-Acetylcy steine and Metamizole may falsely depress this assay.Serum Triglycerides Reference Interval Normal <150 mg/dL Borderline high 150 - 199 mg/dL High 200 - 499 mg/dL Very High > or = 500 mg/dL WBC (Bld) [#/Vol] 5.2 10*3/uL 4.4-11.0 [facility] Blood erythrocytes count (nu mber/volume)Ordered By: Trinidad Lobo on 04-27-2023 RBC (Bld) [#/Vol] 4.99 10*6/uL 4.6-6.2 [facility] Blood hemoglobin measurement (mass/volume)Ordered By: Trinidad Lobo on 04-27-2023 Hemoglobin (Bld) [Mass/Vol] 14.8 g/dL 13.0-16.5 [facility] Blood lymphocytes/100 leukoc ytesOrdered By: Trinidad Lobo on 04-27-2023 Lymphocytes/100 WBC (Bld) 38.5 % 19-41 [facility] Blood monocytes/100 leukocyt esOrdered By: [facility] Monocytes/100 WBC (Bld) 5.7 % 0-10 [facility] Blood platelet mean volumeOr dered By: marklohndarlene Lobo on 04-27-2023 Platelet mean volume (Bld) [Entitic vol] 9.9 fL 6.2-12.0 [facility] Determination of erythrocyte mean corpuscular volume (MCV)Ordered By: marklohndarlene Lobo on 04-27-2023 MCV (RBC) [Entitic vol] 91.2 fL 80-94 [facility] Hematocrit Auto (Bld) [Volum e fraction]Ordered By: [facility] Modestoroger on 04-27-2023 Hematocrit (Bld) [Volume fraction] 45.5 % 40-54 [facility] Laboratory - Chemistry and C hemistry - challengeOrdered By: [facility] Modestoroger on 04-27-2023 ALP [Catalytic activity/Vol] 69 U/L 45-117 [facility] ALT [Catalytic activity/Vol] 28 U/L 16-61 [facility] CO2 [Moles/Vol] 28.0 mmol/L 21.0-32.0 [facility] Globulin (S) [Mass/Vol] 4.4 g/dL 2.2-4.2 [facility] Urea nitrogen/Creatinine [Mass ratio] 14.7 mg/mg 10-20 [facility] Laboratory - Hematology and Cell countsOrdered By: [facility] Modestoroger on 04-27-2023 Erythrocyte distribution width (RBC) [Entitic vol] 44.8 fL 35.1-43.9 [facility] Erythrocyte distribution width (RBC) [Ratio] 13.3 % 11.6-14.6 [facility] Immature granulocytes/100 WBC (Bld) 1.000 % 0.0-0.9 [facility] Comment on above: IG% - Immature Granu locytes (promyelocytes, myelocytes and metamyelocytes) > 1% indicates that a LEFT SHIFT is Present. MCH (RBC) [Entitic mass] 29.7 pg 27.0-32.0 [facility] Nucleated RBC/100 WBC (Bld) [Ratio] 0 % 0-5 [facility] Laboratory - Hematology and Cell countson 04-27-2023 HbA1c (Bld) [Mass fraction] 6.0 % 4.2-6.3 [facility] [Mass/Vol]Or dered By: Triindad Lobo on 04-27-2023 MCHC (RBC) [Mass/Vol] 32.5 g/dL 32-36 [facility] No Panel InformationOrdered By: Trinidad Lobo on 04-27-2023 Estimated GFR (MDRD) Amer 88 mL/min >60 [facility] Comment on above: GFR Calc Estimated GFR (MDRD) Non-Af Amer 72 mL/min >60 [facility] Comment on above: Non- GFR Calc Prostate Specific Antigen Screen 2.89 ng/mL 0.00-4.00 [facility] Comment on above: This test was perfor med using the TPSA assay method for the[employer] chemistry system. Values obtained with differentassay methods cannot be used interchangably.When changing PSA assays in the course of monitoring apatient, additional sequential testing should be carriedout to confirm baseline values. Platelets bldOrdered By: Jim Lobo on 04-27-2023 Platelets (Bld) [#/Vol] 247 10*3/uL 150-450 [facility] Serum or plasma albumin anne marie urement (mass/volume)Ordered By: Trinidad Lboo on 04-27-2023 Albumin [Mass/Vol] 4.0 g/dL 3.2-5.0 [facility] Serum or plasma albumin/glob ulin mass ratioOrdered By: Trinidad Lobo on 04-27-2023 Albumin/Globulin [Mass ratio] 0.9 {ratio} 0.9-2.4 [facility] Serum or plasma calcium anne marie urement (mass/volume)Ordered By: Tirnidad Lobo on 04-27-2023 Calcium [Mass/Vol] 9.2 mg/dL 8.5-10.1 [facility] Serum or plasma cholesterol in HDL measurement (mass/volume)Ordered By: Trinidad Lobo on 04-27-2023 Cholesterol in HDL [Mass/Vol] 38 mg/dL >40 [facility] Comment on above: The drugs N-Acetylcy steine and Metamizole may falsely depress this assay. Reference Range HDL <40 mg/dL Low HDL Cholesterol HDL >or= 60 mg/dL High HDL Cholesterol Serum or plasma cholesterol in VLDL measurement (mass/volume)Ordered By: Trinidad Lobo on 04-27-2023 Cholesterol in VLDL [Mass/Vol] 49 mg/dL 5-40 [facility] Serum or plasma creatinine m easurement (mass/volume)Ordered By: Trinidad Lobo on 04-27-2023 Creatinine [Mass/Vol] 1.09 mg/dL 0.70-1.30 [facility] Comment on above: The validity of the calculated GFR & GFRAA in patients over 70 years has not been determined. Clinical correlation is essential. Serum or plasma low density lipoprotein (LDL) cholesterol measurement (mass/volume)Ordered By: Valerylohndarlene Lobo on 04-27-2023 Cholesterol in LDL [Mass/Vol] 47 mg/dL 0-130 [facility] Serum or plasma urea nitroge n measurement (mass/volume)Ordered By: marklohndarlene Lobo on 04-27-2023 Urea nitrogen [Mass/Vol] 16 mg/dL 7-18 [facility] Thin prep Papanicolaou smear with manual screeningOrdered By: Valerylohndarlene Lobo on 04-27-2023 Thin prep Papanicolaou smear with manual screening 17 U/L 15-37 [facility] Thin prep Papanicolaou smear with manual screening 6 5-15 [facility] Absolute lymphocyte counton 05-08-2022 Lymphocytes Auto (Unsp spec) [#/Vol] 3.04 10*3/uL 0.83-4.51 [facility] Work Phone: Basophil percentageon 2021 Basophils/100 WBC (Bld) 0.3 % 0-1 [facility] Work Phone: Bilirubin [Mass/Vol] 0.60 mg/dL 0.20-1.00 [facility] Work Phone: Comment on above: For patients on eltr ombopag therapy, use of Dimension [place] TBIL is not recommended. Chloride [Moles/Vol] 102 mmol/L 98-[address] [facility] Work Phone: [phone] Cholesterol [Mass/Vol] 120 mg/dL <200 [address] [facility] Work Phone: Comment on above: <200 mg/dL Desirable 200-240 mg/dL Borderline >240 mg/dL High Risk Eosinophils/100 WBC (Bld) 2.4 % 0-5 [facility] Work Phone: Glucose [Mass/Vol] 79 mg/dL 74-106 [facility] Work Phone: [phone] Neutrophils (Bld) [#/Vol] 3.0 10*3/uL 2.0-7.7 [facility] Work Phone: [phone] Neutrophils/100 WBC (Bld) 44.1 % 47-70 [facility] Work Phone: [phone] Potassium [Moles/Vol] 4.0 mmol/L 3.5-5.1 [facility] Work Phone: [phone] Protein [Mass/Vol] 8.3 g/dL 6.4-8.2 [facility] Work Phone: [phone] Sodium [Moles/Vol] 139 mmol/L 136-145 [facility] Work Phone: [phone] Triglyceride [Mass/Vol] 305 mg/dL <199 [facility] Work Phone: [phone] Comment on above: The drugs N-Acetylcy steine and Metamizole may falsely depress this assay.Serum Triglycerides Reference Interval Normal <150 mg/dL Borderline high 150 - 199 mg/dL High 200 - 499 mg/dL Very High > or = 500 mg/dL WBC (Bld) [#/Vol] 6.7 10*3/uL 4.4-11.0 [facility] Work Phone: [phone] Blood erythrocytes count (nu mber/volume)on 05-08-2022 RBC (Bld) [#/Vol] 4.85 10*6/uL 4.6-6.2 [facility] Work [facility]: Blood hemoglobin measurement (mass/volume)on 05-08-2022 Hemoglobin (Bld) [Mass/Vol] 14.2 g/dL 13.0-16.5 [facility] Work Phone: Blood lymphocytes/100 leukoc yteson 05-08-2022 Lymphocytes/100 WBC (Bld) 45.2 % 19-41 [facility] Work Phone: Blood monocytes/100 leukocyt eson 05-08-2022 Monocytes/100 WBC (Bld) 7.7 % 0-10 [facility] Work Phone: Blood platelet mean volumeon 05-08-2022 Platelet mean volume (Bld) [Entitic vol] 10.2 fL 6.2-12.0 [facility] Work Phone: Determination of erythrocyte mean corpuscular volume (MCV)on 05-08-2022 MCV (RBC) [Entitic vol] 90.3 fL 80-94 [facility] Work Phone: Hematocrit Auto (Bld) [Volum e fraction]on 05-08-2022 Hematocrit (Bld) [Volume fraction] 43.8 % 40-54 [facility] Work Phone: Laboratory - Chemistry and C hemistry - challengeon 05-08-2022 ALP [Catalytic activity/Vol] 70 U/L 45-117 [facility] Work Phone: ALT [Catalytic activity/Vol] 24 U/L 16-61 [facility] Work Phone: CO2 [Moles/Vol] 29.0 mmol/L 21.0-32.0 [facility] Work Phone: Globulin (S) [Mass/Vol] 4.3 g/dL 2.2-4.2 [facility] Work Phone: Urea nitrogen/Creatinine [Mass ratio] 12.9 mg/mg 10-20 [facility] Work Phone: Laboratory - Hematology and Cell countson 05-08-2022 Erythrocyte distribution width (RBC) [Entitic vol] 43.4 fL 35.1-43.9 [facility] Work Phone: Erythrocyte distribution width (RBC) [Ratio] 13.3 % 11.6-14.6 [facility] Work Phone: Immature granulocytes/100 WBC (Bld) 0.300 % 0.0-0.9 [facility] Work Phone: Comment on above: IG% - Immature Granu locytes (promyelocytes, myelocytes and metamyelocytes) > 1% indicates that a LEFT SHIFT is Present. MCH (RBC) [Entitic mass] 29.3 pg 27.0-32.0 [facility] Work Phone: Nucleated RBC/100 WBC (Bld) [Ratio] 0 % 0-5 [facility] Work Phone: HbA1c (Bld) [Mass fraction] 5.8 % 4.2-6.3 [facility] Work Phone: MCHC Auto (RBC) [Mass/Vol]on 05-08-2022 MCHC (RBC) [Mass/Vol] 32.4 g/dL 32-36 [facility] Work Phone: No Panel Informationon 05-08 Estimated GFR (MDRD) Amer 76 mL/min >60 [facility] Work Phone: Comment on above: GFR Calc Estimated GFR (MDRD) Non-Af Amer 63 mL/min >60 [facility] Work Phone: Comment on above: Non- GFR Calc Platelets bldon 05-08-2022 Platelets (Bld) [#/Vol] 268 10*3/uL 150-450 [facility] Work Phone: Serum or plasma albumin anne marie urement (mass/volume)on 05-08-2022 Albumin [Mass/Vol] 4.0 g/dL 3.2-5.0 [facility] Work Phone: Serum or plasma albumin/glob ulin mass ratioon 05-08-2022 Albumin/Globulin [Mass ratio] 0.9 {ratio} 0.9-2.4 [facility] Work Phone: Serum or plasma calcium anne marie urement (mass/volume)on 05-08-2022 Calcium [Mass/Vol] 9.2 mg/dL 8.5-10.1 [facility] Work Phone: Serum or plasma cholesterol in HDL measurement (mass/volume)on 05-08-2022 Cholesterol in HDL [Mass/Vol] 32 mg/dL >40 [facility] Work Phone: Comment on above: The drugs N-Acetylcy steine and Metamizole may falsely depress this assay. Reference Range HDL <40 mg/dL Low HDL Cholesterol HDL >or= 60 mg/dL High HDL Cholesterol Serum or plasma cholesterol in VLDL measurement (mass/volume)on 05-08-2022 Cholesterol in VLDL [Mass/Vol] 61 mg/dL 5-40 [facility] Work Phone: Serum or plasma creatinine m easurement (mass/volume)on 05-08-2022 Creatinine [Mass/Vol] 1.24 mg/dL 0.70-1.30 [facility] Work Phone: Comment on above: The validity of the calculated GFR & GFRAA in patients over 70 years has not been determined. Clinical correlation is essential. Serum or plasma low density lipoprotein (LDL) cholesterol measurement (mass/volume)on 05-08-2022 Cholesterol in LDL [Mass/Vol] 27 mg/dL 0-130 [facility] Work Phone: Serum or plasma urea nitroge n measurement (mass/volume)on 05-08-2022 Urea nitrogen [Mass/Vol] 16 mg/dL 7-18 [facility] Work Phone: Thin prep Papanicolaou smear with manual screeningon 05-08-2022 Thin prep Papanicolaou smear with manual screening 16 U/L 15-37 [facility] Work Phone: Thin prep Papanicolaou smear with manual screening 8 5-15 [facility] Work Phone: Laboratory - Hematology and Cell countson 02-06-2022 HbA1c (Bld) [Mass fraction] 7.2 % 4.2-6.3 [facility] Work Phone: Vital Signs Date Time Vital Sign Value Performing Clinician Saw chambers 01-26-2025 15:11-0400 Body height 162.[address] Trinidad Lobo MD Work Phone: [facility] 01-26-2025 15:11-0400 Body mass index (BMI) [Ratio] 30.4 kg/m2 Dr. Trinidad Lobo MD Work Phone: [facility] 01-26-2025 15:11-0400 Body temperature 98.3 [degF] Dr. Trinidad Lobo MD Work Phone: [facility] 01-26-2025 15:11-0400 Body weight 80.[address] Trinidad Lobo MD Work Phone: [facility] 01-26-2025 15:11-0400 Diastolic blood pressure 60 mm[Hg] Dr. Trinidad Lobo MD Work Phone: [facility] 01-26-2025 15:11-0400 Heart rate 96 /min Dr. Trinidad Lobo MD Work Phone: [facility] 01-26-2025 15:11-0400 Respiratory rate 16 /min Dr. Trinidad Lobo MD Work Phone: [facility] 01-26-2025 15:11-0400 SaO2% (BldA) [Mass fraction] 98 % Dr. Trinidad Lobo MD Work Phone: [facility] 01-26-2025 15:11-0400 Systolic blood pressure 110 mm[Hg] Dr. Trinidad Lobo MD Work Phone: [facility] 11-05-2023 09:06-0400 Body temperature 98.4 [degF] Dr. Trinidad Lobo Work Phone: [facility] 11-05-2023 09:06-0400 Body weight 81.[address] Trinidad Lobo Work Phone: [facility] 11-05-2023 09:06-0400 Diastolic blood pressure 85 mm[Hg] Dr. Trinidad Lobo Work Phone: [facility] 11-05-2023 09:06-0400 Heart rate 98 /min Dr. Trinidad Lobo Work Phone: [facility] 11-05-2023 09:06-0400 Respiratory rate 16 /min Dr. Trinidad Lobo Work Phone: [facility] 11-05-2023 09:06-0400 SaO2% (BldA) [Mass fraction] 99 % Dr. Trinidad Lobo Work Phone: [facility] 11-05-2023 09:06-0400 Systolic blood pressure 129 mm[Hg] Dr. Trinidad Lobo Work Phone: [facility] 10-15-2023 14:56-0500 Body height [address] Trinidad Lobo Work Phone: [facility] 10-15-2023 14:56-0500 Body mass index (BMI) [Ratio] 29.5 kg/m2 Dr. Trinidad Lobo Work Phone: [facility] 10-15-2023 14:56-0500 Body temperature 97.6 [degF] Dr. Trinidad Lobo Work Phone: [facility] 10-15-2023 14:56-0500 Body weight 80.[address] Trinidad Lobo Work Phone: [facility] 10-15-2023 14:56-0500 Diastolic blood pressure 60 mm[Hg] Dr. Trinidad Lobo Work Phone: [facility] 10-15-2023 14:56-0500 Heart rate 96 /min Dr. Trinidad Lobo Work Phone: [facility] 10-15-2023 14:56-0500 Respiratory rate 16 /min Dr. Trinidad Lobo Work Phone: [facility] 10-15-2023 14:56-0500 SaO2% (BldA) [Mass fraction] 98 % Dr. Trinidad Lobo Work Phone: [facility] 10-15-2023 14:56-0500 Systolic blood pressure 130 mm[Hg] Dr. Trinidad Lobo Work Phone: [facility] 10-12-2023 11:38-0500 Body temperature 97.9 [degF] Dr. Trinidad Lobo Work Phone: [facility] 10-12-2023 11:38-0500 Diastolic blood pressure 65 mm[Hg] Dr. Trinidad Lobo Work Phone: [facility] 10-12-2023 11:38-0500 Heart rate 85 /min Dr. Trinidad Lobo Work Phone: [facility] 10-12-2023 11:38-0500 Respiratory rate 18 /min Dr. Trinidad Lobo Work Phone: [facility] 10-12-2023 11:38-0500 SaO2% (BldA) [Mass fraction] 99 % Dr. Trinidad Lobo Work Phone: [facility] 10-12-2023 11:38-0500 Systolic blood pressure 160 mm[Hg] Dr. Trinidad Lobo Work Phone: [facility] 10-12-2023 09:04-0500 Body mass index (BMI) [Ratio] 29.1 kg/m2 Dr. Trinidad Lobo Work Phone: [facility] 10-12-2023 09:04-0500 Body weight 79.[address] Trinidad Lobo Work Phone: [facility] 04-27-2023 10:59-0400 Body height 165.[address] Trinidad Lobo Work Phone: [facility] 04-27-2023 10:59-0400 Body mass index (BMI) [Ratio] 29.9 kg/m2 Dr. Trinidad Lobo Work Phone: [facility] 04-27-2023 10:59-0400 Body temperature 98.1 [degF] Dr. Trinidad Lobo Work Phone: [facility] 04-27-2023 10:59-0400 Body weight 81.[address] Trinidad Lobo Work Phone: [facility] 04-27-2023 10:59-0400 Diastolic blood pressure 76 mm[Hg] Dr. Trinidad Lobo Work Phone: [facility] 04-27-2023 10:59-0400 Heart rate 101 /min Dr. Trinidad Lobo Work Phone: [facility] 04-27-2023 10:59-0400 Respiratory rate 16 /min Dr. Trinidad Lobo Work Phone: [facility] 04-27-2023 10:59-0400 SaO2% (BldA) [Mass fraction] 98 % Dr. Trinidad Lobo Work Phone: [facility] 04-27-2023 10:59-0400 Systolic blood pressure 118 mm[Hg] Dr. Trinidad Lobo Work Phone: [facility] 05-08-2022 15:24-0400 Body height 165.[address] Trinidad Lobo Work Phone: [facility] Work Phone: 05-08-2022 15:24-0400 Body mass index (BMI) [Ratio] 29.9 kg/m2 Dr. Trinidad Lobo Work Phone: [facility] Work Phone: 05-08-2022 15:24-0400 Body temperature 98.2 [degF] Dr. Trinidad Lobo Work Phone: [facility] Work Phone: 05-08-2022 15:24-0400 Body weight 81.[address] Trinidad Lobo Work Phone: [facility] Work Phone: 05-08-2022 15:24-0400 Diastolic blood pressure 72 mm[Hg] Dr. Trinidad Lobo Work Phone: [facility] Work Phone: 05-08-2022 15:24-0400 Heart rate 95 /min Dr. Trinidad Lobo Work Phone: [facility] Work Phone: 05-08-2022 15:24-0400 Respiratory rate 14 /min Dr. Trinidad Lobo Work Phone: [facility] Work Phone: 05-08-2022 15:24-0400 SaO2% (BldA) [Mass fraction] 97 % Dr. Trinidad Lobo Work Phone: [facility] Work Phone: 05-08-2022 15:24-0400 Systolic blood pressure 122 mm[Hg] Dr. Trinidad Lobo Work Phone: [facility] Work Phone: 02-06-2022 16:33-0400 Body mass index (BMI) [Ratio] 30.6 kg/m2 Dr. Trinidad Lobo Work Phone: [facility] Work Phone: 02-06-2022 16:33-0400 Body temperature 96.9 [degF] Dr. Trinidad Lobo Work Phone: [facility] Work Phone: 02-06-2022 16:33-0400 Body weight 83.[address] Trinidad Lobo Work Phone: [facility] Work Phone: 02-06-2022 16:33-0400 Diastolic blood pressure 70 mm[Hg] Dr. Trinidad Lobo Work Phone: [facility] Work Phone: 02-06-2022 16:33-0400 Heart rate 108 /min Dr. Trinidad Lobo Work Phone: [facility] Work Phone: 02-06-2022 16:33-0400 Respiratory rate 18 /min Dr. Trinidad Lobo Work Phone: [facility] Work Phone: 02-06-2022 16:33-0400 SaO2% (BldA) [Mass fraction] 97 % Dr. Trinidad Lobo Work Phone: [facility] Work Phone: 02-06-2022 16:33-0400 Systolic blood pressure 100 mm[Hg] Dr. Trinidad Lobo Work Phone: [facility] Work Phone: Encounters Encounter Date Encounter Type Care Provider Facility Start: 06-28-2025 ambulatory Trinidad Lobo Facili ty:[facility] Start: 06-16-2025 End: 06-16-2025 ambulatory Trinidad Lobo Facility:[facility] Start: 06-14-2025 End: 06-14-2025 ambulatory jose Lobo [place] Start: 06-14-2025 End: 06-14-2025 ambulatory [facility] [address] Facility:[facility] Start: 04-27-2025 End: 04-27-[address] Trinidad Lobo MD Work Phone: -[facility] Start: 04-27-2025 End: 04-27-[address] Trinidad Lobo MD -[facility] Start: 04-27-2025 End: 04-27-2025 ambulatory [facility] [address] Facility:[facility] Start: 01-26-2025 Encounter for genera l adult medical examination without abnormal findings [facility] Start: 01-26-2025 End: 01-26-[address] Trinidad Lobo MD -[facility] Work Phone: Start: 01-26-2025 End: 01-26-[address] Trinidad Lobo MD [facility] Start: 01-26-2025 End: 01-26-[address] Trinidad Lobo MD Work Phone: [facility] Work Phone: Start: 01-26-2025 End: 01-26-2025 ambulatory [facility] [address] Facility:[facility] Start: 11-12-2023 End: 11-12-[address] Trinidad Lobo Work Phone: [facility] Work Phone: Start: 11-12-2023 End: 11-12-[address] Trinidad Lobo Work Phone: [facility] Work Phone: Start: 11-05-2023 End: 11-05-[address] Trinidad Lobo Work Phone: [facility] Work Phone: Start: 10-22-2023 End: 10-22-[address] Trinidad Lobo Work Phone: [facility] Work Phone: Start: 10-22-2023 End: 10-22-[address] Trinidad Lobo Work Phone: [facility]-Laboratory, Specimen Work Phone: Start: 10-15-2023 End: 10-15-[address] Trinidad Lobo Work Phone: [facility] Work Phone: Start: 10-15-2023 End: 10-15-[address] Trinidad Lobo Work Phone: [facility] Work Phone: Start: 10-12-2023 End: 10-12-2023 Emergency department patient visit Dr. Trinidad Lobo Work Phone: [facility]-Emergency Department Work Phone: Start: 04-27-2023 End: 04-27-[address] Trinidad Lobo Work Phone: [facility] Work Phone: Start: 04-27-[address] Trinidad Lobo Work Phone: [facility] Start: 04-27-2023 End: 04-27-2023 Encounter for general adult medical examination without abnormal findings Dr. Trinidad Lobo Work Phone: [facility] Start: 04-27-2023 End: 04-27-[address] Trinidad Lobo Work Phone: [facility] Work Phone: Start: 11-20-[address] Trinidad Lobo Work Phone: [facility] Start: 05-08-2022 End: 05-08-[address] Trinidad Lobo Work Phone: [facility] Work Phone: Start: 05-08-2022 End: 05-08-2022 Encounter for general adult medical examination without abnormal findings Dr. Trinidad Lobo Work Phone: [facility] Start: 05-08-2022 End: 05-08-[address] Trinidad Lobo Work Phone: [facility] Start: 02-06-2022 End: 02-06-[address] Trinidad Lobo Work Phone: [facility] Start: 07-23-[address] Trinidad Lobo Work Phone: [facility] Procedures Date Procedure Procedure Detail Performing Clinician Start: 11-12-2023 Computed tomography angiography of abdominal and/or pelvic blood vessel Dr. Trinidad Lobo Work Phone: Start: 10-12-2023 CT of abdomen and pe lvis without contrast Dr. Trinidad Lobo Work Phone: Plan of Treatment Date Care Activity Detail Author Start: 01-26-2025 CBC W Auto Differential panel - Blood [facility] Start: 01-26-2025 Comprehensive metabolic 2000 panel - Serum or Plasma [facility] Start: 01-26-2025 Lipid 1996 panel - Serum or Plasma [facility] Start: 01-26-2025 Patient referral [facility] Work Phone: Start: 10-15-2023 Patient referral [facility] Work Phone: Start: 10-12-2023 [facility] Alanine aminotransfe rase [Enzymatic activity/volume] in Serum or Plasma [facility] Albumin [Mass/volume ] in Serum or Plasma [facility] Alkaline phosphatase [Enzymatic activity/volume] in Serum or Plasma [facility] Anion gap in Serum or Plasma [facility] Bilirubin, total measurement [facility] BUN/Creatinine ratio [facility] Calcium [Mass/volume ] in Serum or Plasma [facility] Carbon dioxide, tota l [Moles/volume] in Central venous blood [facility] Cholesterol [Mass/vo lume] in Serum or Plasma [facility] Cholesterol in HDL [Mass/volume] in Serum or Plasma [facility] Creatinine [Mass/vol ume] in Serum or Plasma [facility] Erythrocyte mean cor puscular volume determination [facility] Glucose [Mass/volume ] in Serum or Plasma [facility] Hematocrit [Volume F raction] of Blood [facility] Hemoglobin [Mass/vol ume] in Blood [facility] Hemoglobin A1c/Hemoglobin.total in Blood [facility] Leukocytes [#/volume ] in Blood [facility] Low density lipoprot ein cholesterol measurement [facility] Mean corpuscular hem oglobin concentration determination [facility] Mean corpuscular hem oglobin determination [facility] Measurement of renal function [facility] Neutrophil count [facility] Neutrophil percent differential count [facility] Patient Education ED Kidney Ston e with Pain [facility] Work Phone: Patient referral [facility] Work Phone: Platelets [#/volume] in Blood [facility] Potassium measurement [facility] Red blood cell count [facility] Red cell distributio n width determination [facility] Serum chloride measurement [facility] Sodium measurement [facility] Total cholesterol:HD L ratio measurement [facility] Total protein measurement [facility] Triglycerides measurement [facility] Urea nitrogen [Mass/ volume] in Serum or Plasma [facility] VLDL cholesterol measurement [facility] Payers Date Payer Category Payer Self-pay [id number] 2024 Unknown [id number] Unknown [id number] [id number] [id number] Unknown [id number] [id number] Unknown [id number] 2.16.8 [id number] Unknown [id number] 2.16.8 [id number] Unknown [id number] 2.16.8 [id number] Unknown [id number] 2.16.8 [id number] Unknown [id number] 2.16.8 [id number] Social History Date Type Detail Facility Start: 05-08-2022 End: 11-05-2023 Tobacco smoking status TNIS Unknown if ever smoked [facility] Start: 1960 Sex Assigned At Male [facility] Start: 11-05-2023 Tobacco smoking stat [facility] Never smoked tobacco (finding) [facility] Sex Male [facility] Evaluation note 01-26-2025 Note Date & Type Note Facility 01-26-2025 Evaluation note Diagnosis Onset Date Resolution Preventative health care acute January 26, 2025 2:46pm Type 2 diabetes mellitus chronic January 26, 2025 2:46pm [facility] Work Phone: Evaluation note Note Date & Type Note Facility Evaluation note Diagnosis Onset Date Anxiety and depression chron ic Hyperlipidemia chronic Type 2 diabetes mellitus [facility] Encounter for preventative a dult health care examination acute Type 2 diabetes mellitus [facility] Work Phone: Evaluation note Note Date & Type Note Facility Evaluation note Diagnosis Onset Date Left ear pain acute Preventative health care acu te Type 2 diabetes mellitus [facility] Work Phone: Evaluation note Note Date & Type Note Facility Evaluation note Diagnosis Onset Date BPH (benign prostatic hyperplasia) acute Calculus of distal right ureter acute Splenic artery aneurysm acut e Hyperlipidemia chronic Type 2 diabetes mellitus [facility] Work Phone: Evaluation note Note Date & Type Note Facility Evaluation note Diagnosis Onset Date BPH (benign prostatic hyperplasia) acute Splenic artery aneurysm acut e Hyperlipidemia chronic Type 2 diabetes mellitus chr [facility] Work Phone: Evaluation note Note Date & Type Note Facility Evaluation note Diagnosis Onset Date BPH (benign prostatic hyperplasia) acute Splenic artery aneurysm acut e Hyperlipidemia chronic Type 2 diabetes mellitus chr [facility] Splenic artery aneurysm acut e [facility] Work Phone: Evaluation note Note Date & Type Note Facility Evaluation note Diagnosis Onset Date Resolution Preventative health care acute January 26, 2025 2:46pm Type 2 diabetes mellitus chronic January 26, 2025 2:46pm [facility] Work Phone: Chief Complaint and Reason for Visit Chief Complaint 3 M FU PHYSICAL Reason for Visit Anxiety and depressi on Hyperlipidemia Type 2 diabetes mellitus Encounter for preventative adult health care examination Type 2 diabetes mellitus Chief Complaint physical paperwork Reason for Visit Left ear pain Preventative health care Type 2 diabetes mellitus Chief Complaint abd pain wch fu Reason for Visit BPH (benign prostati c hyperplasia) Calculus of distal right ureter Splenic artery aneurysm Hyperlipidemia Type 2 diabetes mellitus Chief Complaint abd pain wch fu Reason for Visit BPH (benign prostati c hyperplasia) Splenic artery aneurysm Hyperlipidemia Type 2 diabetes mellitus Chief Complaint abd pain wch fu CONSULT-ANEURYSM Aneurysm of other specified arteries Reason for Visit BPH (benign prostati c hyperplasia) Splenic artery aneurysm Hyperlipidemia Type 2 diabetes mellitus Splenic artery aneurysm Chief Complaint Admit Date 6 M FU January 26, 2025 2:46 pm Reason for Visit Admit Date Preventative health care January 26, 2025 2:46pm Type 2 diabetes mellitus January 26, 2025 2:46pm Family History No Family History Records Found Relationship Condition Age at Onset Recorded Date/T deon Not Specified Depression Unknown mother Arthritis Unknown Malignant melanoma Unknown Osteoporosis Unknown father Diabetes mellitus Unknown Cardiac disease Unknown Hypertension Unknown High blood cholesterol Unknown Advance Directives No Advanced Directives Records Found Advance Directive Response Recorded Date/ Time Living Will No October 12 9:31am Power of [employer] Conservationist No October 12, 2023 9:31am Advance Directive Response Recorded Date/ Time Living Will No October 12 10:31am Power of [employer] Conservationist No October 12, 2023 10:31am Summary Purpose Additional Source Comments Goals (unrecognized section and content) Goals may be documented in a n alternate sectionGoals may be documented in an alternate sectionGoals may be documented in an alternate sectionGoals may be documented in an alternate sectionGoals may be documented in an alternate sectionGoals may be documented in an alternate sectionGoals may be documented in an alternate sectionGoals may be documented in an alternate section Care Teams (unrecognized sec tion and content) Team Status: Active Member Role Status Dates Dr. Trinidad Lobo MD Primary Care Provider Active Team Status: Inactive Member Role Status Dates Dr. Trinidad Lobo MD Primary Care P rovimary, Attending Provider, Referring Provider Active Team Status: Inactive Member Role Status Dates Dr. Trinidad Lobo MD Primary Care Provider Active Dr. Boby Goodson DO Attending Provider, Emergency P rovider Active Team Status: Inactive Member Role Status Dates Dr. Trinidad Lobo MD Primary Care Provider, Atten ding Provider Active Team Status: Inactive Member Role Status Dates Dr. Trinidad Lobo MD Primary Care Provider, Refer ring Provider Active LEVI Brizuela Attending Provider Active Team Status: Inactive Member Role Status Dates Dr. Trinidad Lobo MD Primary Care Provider Active LEVI Brizuela Attending Provider, Referring Provid er Active Team Status: Inactive Member Role Status Dates Dr. Trinidad Lobo MD Primary Care Provider Active Start: January 26, 2025 End: January 26, 2025 Dr. Trinidad Lobo MD Attending Provider Active Start: January 26, 2025 End: January 26, 2025 Dr. Trinidad Lobo MD Referring Provider Active Start: January 26, 2025 End: January 26, 2025 Team Status: Active Member Role Status Dates Dr. Trinidad Lobo MD Primary Care Provider Active Start: January 26, 2025 Dr. Trinidad Lobo MD Attending Provider Active Start: January 26, 2025 Dr. Trinidad Lobo MD Referring Provider Active Start: January 26, 2025 Team Status: Active Member Role/Relationship Status Dates Dr. Trinidad Lobo MD Primary care physician Activ e Team Status: Inactive Member Role/Relationship Status Dates Dr. Trinidad Lobo MD Primary care physician Activ e Start: January 26, 2025 End: January 26, 2025 Dr. Trinidad Lobo MD Attending physician Active Start: January 26, 2025 End: January 26, 2025 Dr. Trinidad Lobo MD Referring Provider Active Start: January 26, 2025 End: January 26, 2025 Team Status: Inactive Member Role/Relationship Status Dates Dr. Trinidad Lobo MD Primary care physician Activ e Start: January 26, 2025 End: January 26, 2025 Dr. Trinidad Lobo MD Attending physician Active Start: January 26, 2025 End: January 26, 2025 Dr. Trinidad Lobo MD Referring Provider Active Start: January 26, 2025 End: January 26, 2025 Team Status: Inactive Member Role/Relationship Status Dates Dr. Trinidad Lobo MD Primary care physician Activ e Start: April 27, 2025 End: April 27, 2025 Dr. Trinidad Lobo MD Attending physician Active Start: April 27, 2025 End: April 27, 2025 Dr. Trinidad Lobo MD Referring Provider Active Start: April 27, 2025 End: April 27, 2025 (unrecognized sect ion and content) No Status Records Found INFORMATION SOURCE (unrecogn ized section and content) DATE CREATED AUTHOR 06/27/2025 [facility] FOR RECORDS PERTAINING TO PATIENTS WHO ARE OR HAVE BEEN ENROLLED IN A CHEMICAL DEPENDENCY/SUBSTANCEABUSE PROGRAM, SOME INFORMATION MAY BE OMITTED. This clinical summary was aggregated from multiple sources. Caution should be exercised in using it in the provision of clinical care. This summary normalizes information from multiple sources, and as a consequence, information in this document may materially change the coding, format and clinical context of patient data. In addition, data may be omitted in some cases. CLINICAL DECISIONS SHOULD BE BASED ON THE PRIMARY CLINICAL RECORDS. [employer] provides no warranty or guarantee of the accuracy or completeness of information in this document.
--- NOTE | 2025-06-28 11:52 | STRESSREP_ITS ---
Stress Test Report Date: 06/28/2025 Procedure: Exercise tolerance test/imaging study Indications: Dyspnea on exertion palpitations Consent: Per the patient Procedure: The patient exercised on a Yohannes protocol for 5 minutes and 16 seconds achieving a peak heart rate of 146 bpm (94% predicted maximal heart rate) with a peak blood pressure 162/62 mmHg and a peak MET capacity of 7.0 METs. The baseline ECG demonstrated sinus rhythm. The peak exercise ECG showed sinus tachycardia with no ischemic changes. Occasional PVCs noted pretest. No PVCs during exercise. Frequent PVCs in recovery. The functional capacity was considered very good. There was no angina reported. Shortness of breath with exercise. The examination was discontinued secondary to target heart rate being achieved and dyspnea. The patient was injected with 11.9 mCi of technetium 99m Cardiolite and subsequently rest SPECT Cardiolite nuclear imaging was obtained in the horizontal long, vertical long, and short axis views. Post-exercise, the patient was injected with 33.9 mCi of technetium 99m Cardiolite and subsequently stress SPECT Cardiolite nuclear imaging was obtained in the horizontal long, vertical long, and short axis views. A gated Cardiolite study at peak stress was obtained. Rest and stress SPECT Cardiolite nuclear imaging status post realignment, normalization, and attenuation correction, demonstrates the appearance of relative uniform tracer uptake and myocardial perfusion appearing within normal limits. There is end systolic thickening and brightening. The gated Cardiolite study demonstrates myocardial thickening and inward wall motion. The reported LVEF is 63%. Impression: 1. Technically adequate (percent predicted maximal heart rate greater than 85%) exercise tolerance test 2. Peak exercise ECG with no ischemic changes. 3. Occasional PVCs pretest, no PVCs noted during exercise, frequent PVCs in recovery 4. Rest and stress SPECT Cardiolite nuclear imaging demonstrate relative uniform tracer uptake and myocardial perfusion appearing within normal limits. 5. The gated Cardiolite study reports an LVEF of 63%. This note was generated with [employer] software. It may contain incorrect words, spelling, and punctuation that were not noted in checking the note before signing.
== END | disposition home or self-care (01) ==
LOC: CVS 06:48
PROVIDERS: PCP Internal Medicine; Referring Provider Internal Medicine; Visit Provider Internal Medicine
DX: R06.00 Dyspnea, unspecified (principal); R79.89 Other specified abnormal findings of blood chemistry
CPT/HCPCS: 78452; 93017; A9500; A4216

== ENCOUNTER → 2025-07-21 | Outpatient (CLI) | payer BC, SELFPAY ==
[2025-07-21 10:20] LABS: Hematocrit 43.7 % (40-54); Hemoglobin 14.4 g/dL (13.0-16.5); Immature Granulocytes Count 0.060 X10^3/uL (0.0-0.0); Mean Corp Hgb Conc 33.0 g/dL (32-36); Mean Corpuscular Volume 92.8 fL (80-94); Mean Platelet Vol. 10.3 fl (6.2-12.0); NRBC Flagged by Analyzer 0 % (0-5); Platelet Count 249 K/mm3 (150-450); RBC Distribution Width CV 12.8 % (11.6-14.6); RBC Distribution Width SD 43.6 fl (35.1-43.9); Red Blood Count 4.71 M/mm3 (4.6-6.2); White Blood Count 6.1 K/mm3 (4.4-11.0)
[2025-07-21 11:31] LABS: AST(SGOT) 17 U/L (<=37); Alanine Aminotransfer ALT/SGPT 16 U/L (<=46); Albumin, Serum 4.3 g/dL (3.4-4.8); Alkaline Phosphatase 68 U/L (40-129); Anion Gap 14 (5-15); BUN 25 mg/dL (4-19); BUN/Creat Ratio 21.1 RATIO (10-20); Calcium,Total 9.5 mg/dL (7.6-11.0); Carbon Dioxide 23.8 mmol/L (21.0-32.0); Chloride 98 mmol/L (98-108); Globulin 3.2 g/dL (2.2-4.2); Glucose 165 mg/dL (70-99); Magnesium 2.0 mg/dL (1.5-2.2); Potassium 4.0 mmol/L (3.3-5.1); Vitamin D,25 Hydroxy 37.4 ng/mL (30-100)
== END | disposition home or self-care (01) ==
LOC: MTLAB 08:14
PROVIDERS: PCP Internal Medicine; Referring Provider Internal Medicine; Visit Provider Internal Medicine
DX: R00.0 Tachycardia, unspecified (principal); R79.89 Other specified abnormal findings of blood chemistry; K29.70 Gastritis, unspecified, without bleeding; K21.9 Gastro-esophageal reflux disease without esophagitis
CPT/HCPCS: 36415; 80053; 82024; 82274; 82306; 83735; 85025

== ENCOUNTER → 2025-07-26 | Outpatient (CLI) | payer BC, SELFPAY ==
--- NOTE | 2025-07-26 07:54 | ECHOD_ITS ---
Reason For Study Reason For Study: BURRELL, Palpitations Procedure This was a 2D Doppler, Color Flow transthoracic echocardiogram. Myocardial strain analysis was performed in this exam to aid in the assessment of cardiac function. The patient is in an irregular rhythm. Exam performed in department. Left Ventricle Normal-sized left ventricle. Normal left ventricular wall thickness. The global longitudinal strain = -18.3 % (normal). Left ventricular systolic function by Torres's biplane: 52%. Normal diastolic function. No regional wall motion abnormalities noted. Right Ventricle Normal right ventricle. Normal systolic function. Estimated RVSP is 30 to 35 mmHg. Atria The left and right atria are normal. Estimated RA pressure: 8 mmHg. Intact atrial septum. Mitral Valve Normal mitral valve. Trace mitral regurgitation. No mitral stenosis. Tricuspid Valve Normal tricuspid valve. No tricuspid stenosis. Trace tricuspid regurgitation. Aortic Valve Trileaflet aortic valve. No hemodynamically significant aortic stenosis. Mild aortic regurgitation. Pulmonic Valve Normal pulmonic valve. No pulmonic stenosis. Trace pulmonic regurgitation. Great Vessels Normal sized aortic root. Normal ascending aorta. Pericardium/Pleural No pericardial effusion. MMode/2D Measurements & Calculations LVIDd: 4.4 cm IVSd: 0.96 cm Ao root diam: 3.4 cm LVIDs: 3.2 cm LVPWd: 0.91 cm RVDd: 3.3 cm FS: 26.7 % LAV(MOD-bp): 43.1 ml LVAd ap4: 29.9 cm2 SV(MOD-sp4): 45.6 ml LAV(MOD-bp) Indexed: 23.2 ml/m2 LVLd ap4: 7.9 cm SI(MOD-sp4): 24.5 ml/m2 LAV(MOD-sp2): 46.5 ml EDV(MOD-sp4): 89.2 ml LAV(MOD-sp4): 41.3 ml EDV(sp4-el): 96.4 ml LVAs ap4: 18.7 cm2 LVLs ap4: 6.6 cm ESV(MOD-sp4): 43.6 ml ESV(sp4-el): 44.8 ml EF(MOD-sp4): 51.1 % EF(sp4-el): 53.5 % SV(sp4-el): 51.6 ml LA A4 area: 17.4 cm2 LA dimension(2D): 3.2 cm RA A4 area: 16.3 cm2 TAPSE: 2.0 cm Time Measurements MV dec time: 0.19 sec Doppler Measurements & Calculations MV E max juan: 81.2 cm/sec Lat Peak E' Juan: 9.8 cm/sec Med Peak E' Juan: 9.7 cm/sec MV A max juan: 101.5 cm/sec E/E' lat: 8.3 E/E' med: 8.4 MV E/A: 0.80 MV V2 max: 104.9 cm/sec MV P1/2t max juan: 83.0 cm/sec Ao V2 max: 121.8 cm/sec MV max P.4 mmHg MV P1/2t: 68.6 msec Ao max P.9 mmHg MV V2 mean: 53.0 cm/sec Ao V2 mean: 83.8 cm/sec MV mean P.4 mmHg MV dec slope: 354.8 cm/sec2 Ao mean P.3 mmHg MV V2 VTI: 30.4 cm MVA(P1/2t): 3.2 cm2 Ao V2 VTI: 27.5 cm AV (velocity ratio): 0.74 AI max juan: 344.4 cm/sec LV V1 max: 81.6 cm/sec PA V2 max: 94.7 cm/sec AI max P.0 mmHg LV V1 max P.7 mmHg LV V1 mean P.6 mmHg AI dec slope: 160.4 cm/sec2 LV V1 mean: 57.9 cm/sec AI P1/2t: 629.1 msec LV V1 VTI: 20.3 cm TR max juan: 243.0 cm/sec TR max P.6 mmHg ECHO/Echo Complete Interpretation Summary Normal-sized left ventricle Borderline/normal LV systolic function with EF 52% by Torres's biplane Normal left ventricular diastolic function Normal left ventricular wall motion Normal right ventricular systolic function Mild aortic regurgitation Recommend routine valvular surveillance echocardiogram in 3 years. Ordering Physician: Rajinder Michael Referring Physician: Rajinder Michael Performed By: Nicho Tomas RCS
--- OUTSIDE RECORDS SUMMARY | 2025-07-26 08:14 | XMS RPT_ITS | CCD ---
Author Organization [facility] Care Team Providers Care Portable Track Crew Chief Name Role Phone Dr. Trinidad Lobo Primary [...] ACUÑA, Dr. Abdi Attending Physician 1(3 [phone]) Oleghe, Efewongbe Primary Care Unavailable Oleghe, Efewongbe Attending Unavailable Oleghe, Efewongbe Referring Unavailable Oleghe, Efewongbe Primary Care Unavailable Oleghe, Efewongbe Attending Unavailable Oleghe, Efewongbe Referring Unavailable Oleghe, Efewongbe Referring Unavailable Oleghe, Efewongbe Primary Care Unavailable Oleghe, Efewongbe Consulting Unavailable Brent, Kasandra Attending Unavailable Oleghe, Efewongbe Attending Unavailable Oleghe, Efewongbe Referring Unavailable Oleghe, Efewongbe Primary Care Unavailable Oleghe, Efewongbe Referring Unavailable Oleghe, Efewongbe Attending Unavailable Oleghe, Efewongbe Primary Care Unavailable Oleghe, Efewongbe Referring Unavailable Oleghe, Efewongbe Attending Unavailable Oleghe, Efewongbe Primary Care Unavailable Oleghe, Efewongbe Referring Unavailable Oleghe, Efewongbe Attending Unavailable Oleghe, Efewongbe Primary Care Unavailable Oleghe, Efewongbe Primary Care Unavailable Oleghe, Efewongbe Attending Unavailable Oleghe, Efewongbe Referring Unavailable Medications Current Medications Medication Drug Class(es) [...] Active 5 MG SC EVERY WEEK 6.5 October 16, 2023 1:47pm Start: 10-16-2023 Tirzepatide (M ounjaro) 5 mg/0.5 mL pen injector Active 5 MG SC EVERY WEEK 6.5 October 16, 2023 12:47pm Start: 08-21-2023 End: [...] mg SC EVERY WEEK 6.5 90 March 23, 2024 4:22pm September 09, 2024 2:15pm Start: 10-16-2023 End: 03-23-2024 Tirzepatide (Mounjaro) 5 mg/ 0.5 mL pen injector Discontinued 5 mg SC EVERY WEEK 6.5 90 October 16, 2023 1:47pm March 23, 2024 [...] sources) Dyspnea, unspecified; Translations: [Dyspnea, unspecified] Onset: 06-26-2025 Episodic Other nutritional; endocrine; and metabolic disorders (8 sources) Body mass index 30+ - obesity; Translations: [Obesity, unspecified] 11-14-2021 Chronic Other screening for suspected conditions (not mental disorders or infectious disease) (1 source) Other specified abnormal findings of blood chemistry; Translations: [Other specified abnormal findings of blood chemistry] Onset: 06-28-2025 Episodic Unclassified (3 sources) Z00.00 - Encounter for general adult medical examination without abnormal findings,D22.9 - Melanocytic nevi, unspecified Unclassified (1 source) Patient encounter status Past or Other Problems Problem Classification Problem Date Documented Da te Episodic/Chronic Other and unspecified benign neoplasm (1 source) Melanocytic nevi, unspecified; Translations: [Melanocytic nevi, unspecified] Onset: 01-26-2025 Episodic Results Test Name Value Interpretation Reference Range Facility Stress Reporton 06-28-2025 Stress Report [facility] [address] [place] [address] MR#: [id number] Acct: [id number] Name: ATA ROBERTO Rep #: [id number] : 1960 64 From: Kasandra Kennedy MD Primary Care: Dr. Trinidad Lobo MD Status: REG CLI Referring Dr: Trinidad Lobo MD Sex: M C Stress Test Report Date: 06/28/2025 Procedure: Exercise tolerance test/imaging study Indications: Dyspnea on exertion palpitations Consent: Per the patient Procedure: The patient exercised on a Yohannes protocol for 5 minutes and 16 seconds achieving a peak heart rate of 146 bpm (94% predicted maximal heart rate) with a peak blood pressure 162/62 mmHg and a peak MET capacity of 7.0 METs. The baseline ECG demonstrated sinus rhythm. The peak exercise ECG showed sinus tachycardia with no ischemic changes. Occasional PVCs noted pretest. No PVCs during exercise. Frequent PVCs in recovery. The functional capacity was considered very good. There was no angina reported. Shortness of breath with exercise. The examination was discontinued secondary to target heart rate being achieved and dyspnea. The patient was injected with 11.9 mCi of technetium 99m Cardiolite and subsequently rest SPECT Cardiolite nuclear imaging was obtained in the horizontal long, vertical long, and short axis views. Post-exercise, the patient was injected with 33.9 mCi of technetium 99m Cardiolite and subsequently stress SPECT Cardiolite nuclear imaging was obtained in the horizontal long, vertical long, and short axis views. A gated Cardiolite study at peak stress was obtained. Rest and stress SPECT Cardiolite nuclear imaging status post realignment, normalization, and attenuation correction, demonstrates the appearance of relative uniform tracer uptake and myocardial perfusion appearing within normal limits. There is end systolic thickening and brightening. The gated Cardiolite study demonstrates myocardial thickening and inward wall motion. The reported LVEF is 63%. Impression: 1. Technically adequate (percent predicted maximal heart rate greater than 85%) exercise tolerance test 2. Peak exercise ECG with no ischemic changes. 3. Occasional PVCs pretest, no PVCs noted during exercise, frequent PVCs in recovery 4. Rest and stress SPECT Cardiolite nuclear imaging demonstrate relative uniform tracer uptake and myocardial perfusion appearing within normal limits. 5. The gated Cardiolite study reports an LVEF of 63%. This note was generated with Flowboxation software. It may contain incorrect words, spelling, and punctuation that were not noted in checking the note before signing. 06/28/25 1154 Date Kasandra Kennedy MD CC: Dr. Trinidad Lobo MD Date Dictated: 06/28/251151 Date Transcribed: 06/28/251151 Python Engineer: KELLY Signed Normal [facility] Adrenocorticotropic Hormoneo n 06-23-2025 ACTH 78.1 pg/mL High 7.2-63.3 [facility] Comment on above: Order Comment: Test( s) 245046-Yqzqxnwrilk; 501011-Xbvxv Activity, Plasma was developed and its performance characteristics determined by [facility]. It has not been cleared or approved by the Food and Drug Administration. N Result Comment: ACTH reference interval for samples collected between 7 and 10 AM. Performed at: [address] [id number] Nurse Staff [facility]: Vaibhav Ross MD, Phone: [phone] Performed at: [address] [id number] Nurse Staff [facility]: Ayan Mora PhD, Phone: [phone] Performed By: #### L 3300.1050, L509.6001, L3300.1000 #### [facility] [address] [place], [address] Renin/Aldosterone Activityon 06-23-2025 ALD/RENIN RATIO 3.5 Normal 0.0-30.0 [facility] Comment on above: Order Comment: Test( s) 950308-Bltkufiazpx; 566708-Bjmga Activity, Plasma was developed and its performance characteristics determined by [facility]. It has not been cleared or approved by the Food and Drug Administration. Result Comment: Unit s: ng/dL per ng/mL/hr Performed By: #### L 3300.1050, L509.6001, L3300.1000 #### [facility] [address] [place], [address] ALDOSTERONE,S 5.1 ng/dL Normal 0.0-30.0 [facility] Comment on above: Order Comment: Test( s) 665899-Ygjamfnukxj; 249638-Zdbam Activity, Plasma was developed and its performance characteristics determined by [facility]. It has not been cleared or approved by the Food and Drug Administration. Performed By: #### L 3300.1050, L509.6001, L3300.1000 #### [facility] [address] [place], [address] RENIN, PLASMA 1.464 ng/mL/hr Normal 0.167-5.380 [facility] Comment on above: Order Comment: Test( s) 475505-Ykutnanegup; 838824-Xtbnk Activity, Plasma was developed and its performance characteristics determined by [facility]. It has not been cleared or approved by the Food and Drug Administration. Performed By: #### L 3300.1050, L509.6001, L3300.1000 #### [facility] [address] [place], [address] L509.6001on 06-16-2025 CORTISOL 15.60 ug/dL Normal 6.02-18.40 [facility] Comment on above: Performed By: #### L 3300.1050, L509.6001, L3300.1000 #### [facility] [address] [place], [address] CBC W/Diff, Automatedon 10-2 Absolute Lymph 2.15 X10 3/uL Normal 0.83-4.51 [facility] Comment on above: Performed By: #### L 100.0100, L500.4050, L501.4021, L501.9520, L506.0400, L400.0001 #### [facility] [address] [place], [address] Absolute Neut 4.4 X10 3/uL Normal 2.0-7.7 [facility] Comment on above: Performed By: #### L 100.0100, L500.4050, L501.4021, L501.9520, L506.0400, L400.0001 #### [facility] [address] [place], [address] Basophils/100 WBC (Bld) 0.4 % Normal 0-1 [facility] Comment on above: Performed By: #### L 100.0100, L500.4050, L501.4021, L501.9520, L506.0400, L400.0001 #### [facility] [address] [place], [address] Eosinophils/100 WBC (Bld) 0.7 % Normal 0-5 [facility] Comment on above: Performed By: #### L 100.0100, L500.4050, L501.4021, L501.9520, L506.0400, L400.0001 #### [facility] [address] [place], [address] Erythrocyte distribution width (RBC) [Ratio] 13.4 % Normal 11.6-14.6 [facility] Comment on above: Performed By: #### L 100.0100, L500.4050, L501.4021, L501.9520, L506.0400, L400.0001 #### [facility] [address] [place], [address] Hematocrit (Bld) [Volume fraction] 43.0 % Normal 40-54 [facility] Comment on above: Performed By: #### L 100.0100, L500.4050, L501.4021, L501.9520, L506.0400, L400.0001 #### [facility] [address] [place], [address] Hemoglobin (Bld) [Mass/Vol] 14.6 g/dL Normal 13.0-16.5 [facility] Comment on above: Performed By: #### L 100.0100, L500.4050, L501.4021, L501.9520, L506.0400, L400.0001 #### [facility] [address] [place], [address] IG% 0.600 Normal 0.0-0.9 [facility] Comment on above: Result Comment: IG% - Immature Granulocytes (promyelocytes, myelocytes and metamyelocytes) > 1% indicates that a LEFT SHIFT is Present. Performed By: #### L 100.0100, L500.4050, L501.4021, L501.9520, L506.0400, L400.0001 #### [facility] [address] [place], [address] Lymphocytes/100 WBC (Bld) 30.4 % Normal 19-41 [facility] Comment on above: Performed By: #### L 100.0100, L500.4050, L501.4021, L501.9520, L506.0400, L400.0001 #### [facility] [address] [place], [address] MCH (RBC) [Entitic mass] 30.4 pg Normal 27.0-32.0 [facility] Comment on above: Performed By: #### L 100.0100, L500.4050, L501.4021, L501.9520, L506.0400, L400.0001 #### [facility] [address] [place], [address] MCHC (RBC) [Mass/Vol] 34.0 g/dL Normal 32-36 [facility] Comment on above: Performed By: #### L 100.0100, L500.4050, L501.4021, L501.9520, L506.0400, L400.0001 #### [facility] [address] [place], [address] MCV (RBC) [Entitic vol] 89.6 fL Normal 80-94 [facility] Comment on above: Performed By: #### L 100.0100, L500.4050, L501.4021, L501.9520, L506.0400, L400.0001 #### [facility] [address] [place], [address] Monocytes/100 WBC (Bld) 6.5 % Normal 0-10 [facility] Comment on above: Performed By: #### L 100.0100, L500.4050, L501.4021, L501.9520, L506.0400, L400.0001 #### [facility] [address] [place], [address] Neutrophils/100 WBC (Bld) 61.4 % Normal 47-70 [facility] Comment on above: Performed By: #### L 100.0100, L500.4050, L501.4021, L501.9520, L506.0400, L400.0001 #### [facility] [address] [place], [address] Nucleated RBC (Bld) [#/Vol] 0 10*3/uL Normal 0-5 [facility] Comment on above: Performed By: #### L 100.0100, L500.4050, L501.4021, L501.9520, L506.0400, L400.0001 #### [facility] [address] [place], [address] Platelet mean volume (Bld) [Entitic vol] 9.6 fL Normal 6.2-12.0 [facility] Comment on above: Performed By: #### L 100.0100, L500.4050, L501.4021, L501.9520, L506.0400, L400.0001 #### [facility] [address] [place], [address] Platelets (Bld) [#/Vol] 251 10*3/uL Normal 150-450 [facility] Comment on above: Performed By: #### L 100.0100, L500.4050, L501.4021, L501.9520, L506.0400, L400.0001 #### [facility] [address] [place], [address] RBC (Bld) [#/Vol] 4.80 10*6/uL Normal 4.6-6.2 [facility] Comment on above: Performed By: #### L 100.0100, L500.4050, L501.4021, L501.9520, L506.0400, L400.0001 #### [facility] [address] [place], [address] RDW SD 43.9 fl Normal 35.1-43.9 [facility] Comment on above: Performed By: #### L 100.0100, L500.4050, L501.4021, L501.9520, L506.0400, L400.0001 #### [facility] [address] [place], [address] WBC (Bld) [#/Vol] 7.1 10*3/uL Normal 4.4-11.0 [facility] Comment on above: Performed By: #### L 100.0100, L500.4050, L501.4021, L501.9520, L506.0400, L400.0001 #### [facility] [address] [place], [address] Comprehensive Metabolic Prof ilon 06-14-2025 Albumin [Mass/Vol] 4.4 g/dL Normal 3.4-4.8 [facility] Comment on above: Performed By: #### L 100.0100, L500.4050, L501.4021, L501.9520, L506.0400, L400.0001 #### [facility] [address] [place], [address] Albumin/Globulin [Mass ratio] 1.4 {ratio} Normal 0.9-2.4 [facility] Comment on above: Performed By: #### L 100.0100, L500.4050, L501.4021, L501.9520, L506.0400, L400.0001 #### [facility] [address] [place], [address] ALK PHOS 61 U/L Normal 40-129 [facility] Comment on above: Performed By: #### L 100.0100, L500.4050, L501.4021, L501.9520, L506.0400, L400.0001 #### [facility] [address] [place], [address] ALT [Catalytic activity/Vol] 18 U/L Normal <=46 [facility] Comment on above: Performed By: #### L 100.0100, L500.4050, L501.4021, L501.9520, L506.0400, L400.0001 #### [facility] [address] [place], [address] AST [Catalytic activity/Vol] 21 U/L Normal <=37 [facility] Comment on above: Result Comment: Hemo lysis present, Results??could be affected. ?? Performed By: #### L 100.0100, L500.4050, L501.4021, L501.9520, L506.0400, L400.0001 #### [facility] [address] [place], [address] Bilirubin [Mass/Vol] 0.82 mg/dL Normal 0.00-1.30 [facility] Comment on above: Performed By: #### L 100.0100, L500.4050, L501.4021, L501.9520, L506.0400, L400.0001 #### [facility] [address] [place], [address] BUN/CRE 16.7 RATIO Normal 10-20 [facility] Comment on above: Performed By: #### L 100.0100, L500.4050, L501.4021, L501.9520, L506.0400, L400.0001 #### [facility] [address] [place], [address] Calcium [Mass/Vol] 9.4 mg/dL Normal 7.6-11.0 [facility] Comment on above: Performed By: #### L 100.0100, L500.4050, L501.4021, L501.9520, L506.0400, L400.0001 #### [facility] [address] [place], [address] Chloride [Moles/Vol] 101 mmol/L Normal 98-108 [facility] Comment on above: Performed By: #### L 100.0100, L500.4050, L501.4021, L501.9520, L506.0400, L400.0001 #### [facility] [address] [place], [address] CO2 [Moles/Vol] 24.0 mmol/L Normal 21.0-32.0 [facility] Comment on above: Performed By: #### L 100.0100, L500.4050, L501.4021, L501.9520, L506.0400, L400.0001 #### [facility] [address] [place], [address] Creatinine [Mass/Vol] 1.11 mg/dL Normal 0.70-1.20 [facility] Comment on above: Performed By: #### L 100.0100, L500.4050, L501.4021, L501.9520, L506.0400, L400.0001 #### [facility] [address] [place], [address] GAP 12 Normal 5-15 [facility] Comment on above: Performed By: #### L 100.0100, L500.4050, L501.4021, L501.9520, L506.0400, L400.0001 #### [facility] [address] [place], [address] GFR/1.73 sq M.predicted among non-blacks MDRD (S/P/Bld) [Vol rate/Area] 73 mL/min/{1.73_m2} Normal >60 [facility] Comment on above: Result Comment: mL/m in/1.73m2 CKD-EPI Creatinine Equation (2020) Performed By: #### L 100.0100, L500.4050, L501.4021, L501.9520, L506.0400, L400.0001 #### [facility] [address] [place], [address] Globulin (S) [Mass/Vol] 3.2 g/dL Normal 2.2-4.2 [facility] Comment on above: Performed By: #### L 100.0100, L500.4050, L501.4021, L501.9520, L506.0400, L400.0001 #### [facility] [address] [place], [address] Glucose [Mass/Vol] 88 mg/dL Normal 70-99 [facility] Comment on above: Performed By: #### L 100.0100, L500.4050, L501.4021, L501.9520, L506.0400, L400.0001 #### [facility] [address] [place], [address] Potassium [Moles/Vol] 4.3 mmol/L Normal 3.3-5.1 [facility] Comment on above: Result Comment: Hemo lysis present, Results??could be affected. ?? Performed By: #### L 100.0100, L500.4050, L501.4021, L501.9520, L506.0400, L400.0001 #### [facility] [address] [place], [address] Sodium [Moles/Vol] 137 mmol/L Normal 133-145 [facility] Comment on above: Performed By: #### L 100.0100, L500.4050, L501.4021, L501.9520, L506.0400, L400.0001 #### [facility] [address] [place], [address] T PROT 7.6 g/dL Normal 5.9-8.4 [facility] Comment on above: Performed By: #### L 100.0100, L500.4050, L501.4021, L501.9520, L506.0400, L400.0001 #### [facility] [address] [place], [address] Urea nitrogen [Mass/Vol] 19 mg/dL Normal 4-19 [facility] Comment on above: Performed By: #### L 100.0100, L500.4050, L501.4021, L501.9520, L506.0400, L400.0001 #### [facility] [address] [place], [address] Internal Medicine Office Vis carey 06-14-2025 Internal Medicine Office Visit [facility] Internal Medicine [address] [place], [place] [address] OFFICE VISIT Date of Service: 06/14/25 MR#: [id number] Acct: [id number] Name: ATA ROBERTO Rep #: [id number] : 1960 Provider: Dr. Trinidad lira MD Age/Sex: 64/M Location: [facility] Status: Signed Intake Vital Signs 01/26/25 15:11 [...] PALPITATIONS Chief Complaint: Acute visit. Feels unwell. 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 Normal [facility] L501.4021on 06-14-2025 Trop T High Sen 19 ng/L Normal <=22 [facility] Comment on above: Performed By: #### L 501.4021 ####[facility] [address] [place], [address] Trop T High Sen 23 ng/L High <=22 [facility] Comment on above: Performed By: #### L 100.0100, L500.4050, L501.4021, L501.9520, L506.0400, L400.0001 ####[facility] [address] [facility] [address] T4 Free Directon 06-14-2025 T4 FREE DIRECT 1.30 ng/dL Normal 0.76-1.46 [facility] Comment on above: Performed By: #### L 100.0100, L500.4050, L501.4021, L501.9520, L506.0400, L400.0001 ####[facility] [address] [place], [address] Thyroid Stim Hormone (TSH)on 06-14-2025 TSH 1.350 uIU/mL Normal 0.300-4.200 [facility] Comment on above: Performed By: #### L 100.0100, L500.4050, L501.4021, L501.9520, L506.0400, L400.0001 ####[facility] [address] [place], [address] Urinalysis, Completeon 06-14 BACTERIA 0 SEEN Normal None Seen [facility] Comment on above: Order Comment: COLLE CTOR TO SPECIFY Performed By: #### L 100.0100, L500.4050, L501.4021, L501.9520, L506.0400, L400.0001 #### [facility] [address] [place], [address] EPI,SQUAMOUS 0 SEEN Normal 0-5 [facility] Comment on above: Order Comment: COLLE CTOR TO SPECIFY Performed By: #### L 100.0100, L500.4050, L501.4021, L501.9520, L506.0400, L400.0001 #### [facility] [address] [place], [address] Mucus Ql (Urine sed) 0 SEEN Normal [facility] Comment on above: Order Comment: EYAD CTOR TO SPECIFY Performed By: #### L 100.0100, L500.4050, L501.4021, L501.9520, L506.0400, L400.0001 #### [facility] [address] [place], [address] RBC 0 SEEN Normal 0-5 [facility] Comment on above: Order Comment: EYAD CTOR TO SPECIFY Performed By: #### L 100.0100, L500.4050, L501.4021, L501.9520, L506.0400, L400.0001 #### [facility] [address] [place], [address] WBC 0 SEEN Normal 0-5 [facility] Comment on above: Order Comment: COLLE CTOR TO SPECIFY Performed By: #### L 100.0100, L500.4050, L501.4021, L501.9520, L506.0400, L400.0001 #### [facility] [address] [place], [address] Hemoglobin A1con 04-27-2025 HbA1c (Bld) [Mass fraction] 6.9 % High <=5.6 [facility] Comment on above: Result Comment: Norm al < 5.7 % Prediabetic 5.7 - 6.4 % Diabetic >or= 6.5 % Please note range changes. Performed By: #### L 501.9985 #### [facility] [place], [address] Hemoglobin A1c percentageOrd ered By: Trinidad Lobo on 04-27-2025 HbA1c (Bld) [Mass fraction] 6.9 % High <5.7 [facility] Comment on above: Normal < 5.7 % Predi abetic 5.7 - 6.4 % Diabetic >or= 6.5 % Please note range changes. Absolute lymphocyte countOrd ered By: Trinidad Lobo on 01-26-2025 Lymphocytes Auto (Unsp spec) [#/Vol] 2.66 10*3/uL 0.83-4.51 [facility] Absolute neutrophil countOrd ered By: mark[place]darlene Lobo on 01-26-2025 Neutrophils (Bld) [#/Vol] 5.1 10*3/uL 2.0-7.7 [facility] Anion gap in Serum or Plasma Ordered By: Trinidad Lobo on 01-26-2025 Anion gap [Moles/Vol] 13 mmol/L 5-15 [facility] Automated lymphocyte count a s percentage of total leukocytesOrdered By: Trinidad Lobo on 01-26-2025 Lymphocytes/100 WBC Auto (Unsp spec) 31.3 % 19-41 [facility] BUN/creatinine ratioOrdered By: mark[place]darlene Lobo on 01-26-2025 Urea nitrogen/Creatinine [Mass ratio] 11.8 mg/mg 10-20 [facility] Basophil percentageOrdered B y: Trinidad Lobo on 01-26-2025 Basophils/100 WBC (Bld) 0.5 % 0-1 [facility] Bilirubin, totalOrdered By: Trinidad Lobo on 01-26-2025 Bilirubin [Mass/Vol] 0.72 mg/dL 0.00-1.30 [facility] CBC W/Diff, Automatedon 01-15 Absolute Lymph 2.66 X10 3/uL Normal 0.83-4.51 [facility] Comment on above: Performed By: #### L 100.0100, L500.4050, L500.4100 ####[facility] [address] [place], [address] Absolute Neut 5.1 X10 3/uL Normal 2.0-7.7 [facility] Comment on above: Performed By: #### L 100.0100, L500.4050, L500.4100 ####[facility] [address] [place], [address] Basophils/100 WBC (Bld) 0.5 % Normal 0-1 [facility] Comment on above: Performed By: #### L 100.0100, L500.4050, L500.4100 ####[facility] [address] [place], [address] Eosinophils/100 WBC (Bld) 1.1 % Normal 0-5 [facility] Comment on above: Performed By: #### L 100.0100, L500.4050, L500.4100 ####[facility] [address] [place], [address] Erythrocyte distribution width (RBC) [Ratio] 13.0 % Normal 11.6-14.6 [facility] Comment on above: Performed By: #### L 100.0100, L500.4050, L500.4100 ####[facility] [address] [place], [address] Hematocrit (Bld) [Volume fraction] 42.6 % Normal 40-54 [facility] Comment on above: Performed By: #### L 100.0100, L500.4050, L500.4100 ####[facility] [address] [place], [address] Hemoglobin (Bld) [Mass/Vol] 14.2 g/dL Normal 13.0-16.5 [facility] Comment on above: Performed By: #### L 100.0100, L500.4050, L500.4100 ####[facility] [address] [place], [address] IG% 0.700 Normal 0.0-0.9 [facility] Comment on above: Result Comment: IG% - Immature Granulocytes (promyelocytes, myelocytes and metamyelocytes) > 1% indicates that a LEFT SHIFT is Present. Performed By: #### L 100.0100, L500.4050, L500.4100 ####[facility] [address] [place], [address] Lymphocytes/100 WBC (Bld) 31.3 % Normal 19-41 [facility] Comment on above: Performed By: #### L 100.0100, L500.4050, L500.4100 ####[facility] [address] [place], [address] MCH (RBC) [Entitic mass] 29.9 pg Normal 27.0-32.0 [facility] Comment on above: Performed By: #### L 100.0100, L500.4050, L500.4100 ####[facility] [address] [place], [address] MCHC (RBC) [Mass/Vol] 33.3 g/dL Normal 32-36 [facility] Comment on above: Performed By: #### L 100.0100, L500.4050, L500.4100 ####[facility] [address] [place], [address] MCV (RBC) [Entitic vol] 89.7 fL Normal 80-94 [facility] Comment on above: Performed By: #### L 100.0100, L500.4050, L500.4100 ####[facility] [address] [place], [address] Monocytes/100 WBC (Bld) 6.8 % Normal 0-10 [facility] Comment on above: Performed By: #### L 100.0100, L500.4050, L500.4100 ####[facility] [address] [place], [address] Neutrophils/100 WBC (Bld) 59.6 % Normal 47-70 [facility] Comment on above: Performed By: #### L 100.0100, L500.4050, L500.4100 ####[facility] [address] [place], [address] Nucleated RBC (Bld) [#/Vol] 0 10*3/uL Normal 0-5 [facility] Comment on above: Performed By: #### L 100.0100, L500.4050, L500.4100 ####[facility] [address] [place], [address] Platelet mean volume (Bld) [Entitic vol] 9.8 fL Normal 6.2-12.0 [facility] Comment on above: Performed By: #### L 100.0100, L500.4050, L500.4100 ####[facility] [address] [place], [address] Platelets (Bld) [#/Vol] 247 10*3/uL Normal 150-450 [facility] Comment on above: Performed By: #### L 100.0100, L500.4050, L500.4100 ####[facility] [address] [place], [address] RBC (Bld) [#/Vol] 4.75 10*6/uL Normal 4.6-6.2 [facility] Comment on above: Performed By: #### L 100.0100, L500.4050, L500.4100 ####[facility] [address] [place], [address] RDW SD 42.7 fl Normal 35.1-43.9 [facility] Comment on above: Performed By: #### L 100.0100, L500.4050, L500.4100 ####[facility] [address] [place], [address] WBC (Bld) [#/Vol] 8.5 10*3/uL Normal 4.4-11.0 [facility] Comment on above: Performed By: #### L 100.0100, L500.4050, L500.4100 ####[facility] [address] [place], [address] Calculated very low density lipoprotein (VLDL) cholesterol measurementOrdered By: Trinidad Lobo on 01-26-2025 Calculated very low density lipoprotein (VLDL) cholesterol measurement 51 mg/dL High 5-40 [facility] Carbon dioxide, total [Moles /volume] in Central venous bloodOrdered By: Trinidad Lobo on 01-26-2025 CO2 [Moles/Vol] 23.3 mmol/L 21.0-32.0 [facility] Chloride assayOrdered By: Robin Lobo on 01-26-2025 Chloride [Moles/Vol] 102 mmol/L 98-108 [facility] Comprehensive Metabolic Prof ilon 01-26-2025 Albumin [Mass/Vol] 4.6 g/dL Normal 3.4-4.8 [facility] Comment on above: Performed By: #### L 100.0100, L500.4050, L500.4100 ####[facility] [address] [place], [address] Albumin/Globulin [Mass ratio] 1.4 {ratio} Normal 0.9-2.4 [facility] Comment on above: Performed By: #### L 100.0100, L500.4050, L500.4100 ####[facility] [address] [place], [address] ALK PHOS 69 U/L Normal 40-129 [facility] Comment on above: Performed By: #### L 100.0100, L500.4050, L500.4100 ####[facility] [address] [place], [address] ALT [Catalytic activity/Vol] 18 U/L Normal <=46 [facility] Comment on above: Performed By: #### L 100.0100, L500.4050, L500.4100 ####[facility] [address] [place], [address] AST [Catalytic activity/Vol] 23 U/L Normal <=37 [facility] Comment on above: Performed By: #### L 100.0100, L500.4050, L500.4100 ####[facility] [address] [place], [address] Bilirubin [Mass/Vol] 0.72 mg/dL Normal 0.00-1.30 [facility] Comment on above: Performed By: #### L 100.0100, L500.4050, L500.4100 ####[facility] [address] [place], [address] BUN/CRE 11.8 RATIO Normal 10-20 [facility] Comment on above: Performed By: #### L 100.0100, L500.4050, L500.4100 ####[facility] [address] [place], [address] Calcium [Mass/Vol] 9.6 mg/dL Normal 7.6-11.0 [facility] Comment on above: Performed By: #### L 100.0100, L500.4050, L500.4100 ####[facility] [address] [place], [address] Chloride [Moles/Vol] 102 mmol/L Normal 98-108 [facility] Comment on above: Performed By: #### L 100.0100, L500.4050, L500.4100 ####[facility] [address] [place], [address] CO2 [Moles/Vol] 23.3 mmol/L Normal 21.0-32.0 [facility] Comment on above: Performed By: #### L 100.0100, L500.4050, L500.4100 ####[facility] [address] [place], [address] Creatinine [Mass/Vol] 1.31 mg/dL High 0.70-1.20 [facility] Comment on above: Performed By: #### L 100.0100, L500.4050, L500.4100 ####[facility] [address] [place], [address] GAP 13 Normal 5-15 [facility] Comment on above: Performed By: #### L 100.0100, L500.4050, L500.4100 ####[facility] [address] [place], [address] GFR/1.73 sq M.predicted among non-blacks MDRD (S/P/Bld) [Vol rate/Area] 60 mL/min/{1.73_m2} Normal >60 [facility] Comment on above: Result Comment: mL/m in/1.73m2 CKD-EPI Creatinine Equation (2020) Performed By: #### L 100.0100, L500.4050, L500.4100 ####[facility] [address] [place], [address] Globulin (S) [Mass/Vol] 3.3 g/dL Normal 2.2-4.2 [facility] Comment on above: Performed By: #### L 100.0100, L500.4050, L500.4100 ####[facility] [address] [place], [address] Glucose [Mass/Vol] 92 mg/dL Normal 70-99 [facility] Comment on above: Performed By: #### L 100.0100, L500.4050, L500.4100 ####[facility] [address] [place], [address] Potassium [Moles/Vol] 4.1 mmol/L Normal 3.3-5.1 [facility] Comment on above: Performed By: #### L 100.0100, L500.4050, L500.4100 ####[facility] [address] [place], [address] Sodium [Moles/Vol] 138 mmol/L Normal 133-145 [facility] Comment on above: Performed By: #### L 100.0100, L500.4050, L500.4100 ####[facility] [address] [place], [address] T PROT 7.9 g/dL Normal 5.9-8.4 [facility] Comment on above: Performed By: #### L 100.0100, L500.4050, L500.4100 ####[facility] [address] [place], [address] Urea nitrogen [Mass/Vol] 16 mg/dL Normal 4-19 [facility] Comment on above: Performed By: #### L 100.0100, L500.4050, L500.4100 ####[facility] [address] [place], [address] Eosinophil percentageOrdered By: Trinidad Lobo on 01-26-2025 Eosinophils/100 WBC (Bld) 1.1 % 0-5 [facility] Erythrocyte distribution wid th ratioOrdered By: Trinidad Lobo on 01-26-2025 Erythrocyte distribution width (RBC) [Ratio] 13.0 % 11.6-14.6 [facility] Erythrocyte distribution wid th standard deviationOrdered By: Trinidad Lobo on 01-26-2025 Erythrocyte distribution width (RBC) [Ratio] 42.7 fl 35.1-43.9 [facility] Glomerular filtration rate ( GFR) estimation/1.73 sq m using serum, plasma, or whole bOrdered By: Trinidad Lobo on 01-26-2025 GFR/1.73 sq M.predicted among non-blacks MDRD (S/P/Bld) [Vol rate/Area] 60 mL/min/{1.73_m2} >60 [facility] Comment on above: mL/min/1.73m2 CKD-EP I Creatinine Equation (2020) Hematocrit Auto (Bld) [Volum e fraction]Ordered By: Trinidad Lobo on 01-26-2025 Hematocrit (Bld) [Volume fraction] 42.6 % 40-54 [facility] Hemoglobin measurementOrdere d By: Trinidad Lobo on 01-26-2025 Hemoglobin (Bld) [Mass/Vol] 14.2 g/dL 13.0-16.5 [facility] Immature granulocytes/100 WB C Auto (Bld)Ordered By: Trinidad Lobo on 01-26-2025 Immature granulocytes/100 WBC (Bld) 0.700 % 0.0-0.9 [facility] Comment on above: IG% - Immature Granu locytes (promyelocytes, myelocytes and metamyelocytes) > 1% indicates that a LEFT SHIFT is Present. Internal Medicine Office Vis carey 01-26-2025 Internal Medicine Office Visit [facility] [address] [place], [place] [address] OFFICE VISIT Date of Service: 01/26/25 MR#: [id number] Acct: [id number] Name: ATA ROBERTO Rep #: [id number] : 1960 Provider: Dr. 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 [facility] Medical History (Updated 01/26/25 @ 15:26 by [...] HPI Chief Complaint: Yearly/follow-up chronic conditions Details: ATA ROBERTO, is a 64 M who presents [...] loss, numbnes (more content not included)... Normal [facility] LDL calc ser/plasOrdered By: rTinidad Lobo on 01-26-2025 Cholesterol in LDL [Mass/Vol] 44 mg/dL [facility] Comment on above: Wpegkipgks=919-702 m g/dL & Higher Lhag=223 mg/dL or greater Laboratory - Chemistry and C hemistry - challengeOrdered By: Trinidad Lobo on 01-26-2025 AST [Catalytic activity/Vol] 23 U/L <38 [facility] Laboratory - Hematology and Cell countsOrdered By: Trinidad Lobo on 01-26-2025 HbA1c (Bld) [Mass fraction] 5.9 % 4.2-6.3 [facility] Lipid Profileon 01-26-2025 CHOL:HDL 3.72 Normal [facility] Comment on above: Performed By: #### L 100.0100, L500.4050, L500.4100 ####[facility] [address] [place], [address] Cholesterol [Mass/Vol] 131 mg/dL Normal <=200 [facility] Comment on above: Result Comment: Chol esterol level, Desirable <200 mg/dL Borderline high cholesterol 200-239 mg/dL High cholesterol >=240 mg/dL Recommendations of the NCEP Adult Treatment Panel for the following risk-cutoff thresholds for the [place] population. Performed By: #### L 100.0100, L500.4050, L500.4100 ####[facility] [address] [place], [address] Cholesterol in HDL [Mass/Vol] 35 mg/dL Low [facility] Comment on above: Result Comment: Marge onal Cholesterol Education Program (NCEP) guidelines: <40 mg/dL: Low HDL-cholesterol (major risk factor for CHD) >= 60 mg/dL: High HDL-cholesterol (negative risk factor for CHD) HDL-cholesterol is affected by a number of factors, e.g. smoking, exercise, hormones, sex and age. Performed By: #### L 100.0100, L500.4050, L500.4100 ####[facility] [address] [place], [address] Cholesterol in LDL [Mass/Vol] 44 mg/dL Normal [facility] Comment on above: Result Comment: Bord qqyosq=499-477 mg/dL Higher Vlnm=675 mg/dL or greater Performed By: #### L 100.0100, L500.4050, L500.4100 ####[facility] [address] [place], [address] Cholesterol in VLDL [Mass/Vol] 51 mg/dL High 5-40 [facility] Comment on above: Performed By: #### L 100.0100, L500.4050, L500.4100 ####[facility] [address] [place], [address] Triglyceride [Mass/Vol] 257 mg/dL High [facility] Comment on above: Result Comment: The drugs N-Acetylcysteine and Metamizole may falsely depress this assay. Normal range: <150 mg/dL Borderline High: 150-199 mg/dL High: 200-499 mg/dL Very High: >500 mg/dL Performed By: #### L 100.0100, L500.4050, L500.4100 ####[facility] [address] [place], [address] MCV (mean corpuscular volume ) determinationOrdered By: Trinidad Lobo on 01-26-2025 MCV (RBC) [Entitic vol] 89.7 fL 80-94 [facility] Mean corpuscular hemoglobin (MCH) determinationOrdered By: Trinidad Lobo on 01-26-2025 MCH (RBC) [Entitic mass] 29.9 pg 27.0-32.0 [facility] Mean corpuscular hemoglobin concentration (MCHC) determinationOrdered By: Trinidad Lobo on 01-26-2025 MCHC (RBC) [Mass/Vol] 33.3 g/dL 32-36 [facility] Mean platelet volume determi nationOrdered By: Trinidad Lobo on 01-26-2025 Platelet mean volume (Bld) [Entitic vol] 9.8 fL 6.2-12.0 [facility] Monocyte percentageOrdered B y: Trinidad Lobo on 01-26-2025 Monocytes/100 WBC (Bld) 6.8 % 0-10 [facility] Neutrophil percentageOrdered By: Trinidad Lobo on 01-26-2025 Neutrophils/100 WBC (Bld) 59.6 % 47-70 [facility] Nucleated red blood cell per centageOrdered By: Trinidad Lobo on 01-26-2025 Nucleated RBC/100 WBC (Bld) [Ratio] 0 % 0-5 [facility] Platelet countOrdered By: Robin Lobo on 01-26-2025 Platelets (Bld) [#/Vol] 247 10*3/uL 150-450 [facility] Potassium measurement (mass/ volume)Ordered By: Trinidad Lobo on 01-26-2025 Potassium (Unsp spec) [Mass/Vol] 4.1 mmol/L 3.3-5.1 [facility] RBC Auto (Bld) [#/Vol]Ordere d By: Trinidad Lobo on 01-26-2025 RBC (Bld) [#/Vol] 4.75 10*6/uL 4.6-6.2 [facility] Screening total cholesterol/ high density lipoprotein (HDL) cholesterol ratioOrdered By: Trinidad Lobo on 01-26-2025 Cholesterol.total/Cholest ebony in HDL [Mass ratio] 3.72 {ratio} [facility] Serum creatinine measurement (mass/volume)Ordered By: Trinidad Lobo on 01-26-2025 Creatinine [Mass/Vol] 1.31 mg/dL High 0.70-1.20 [facility] Serum globulin measurementOr dered By: Trinidad Lobo on 01-26-2025 Globulin (S) [Mass/Vol] 3.3 g/dL 2.2-4.2 [facility] Serum glucose measurement (m ass/volume)Ordered By: Trinidad Lobo on 01-26-2025 Glucose [Mass/Vol] 92 mg/dL 70-99 [facility] Serum or plasma alanine peters otransferase (ALT) measurementOrdered By: Trinidad Lobo on 01-26-2025 ALT [Catalytic activity/Vol] 18 U/L <47 [facility] Serum or plasma albumin anne marie urement (mass/volume)Ordered By: Trinidad Lobo on 01-26-2025 Albumin [Mass/Vol] 4.6 g/dL 3.4-4.8 [facility] Serum or plasma albumin/glob ulin mass ratioOrdered By: Trinidad Lobo 01-26-2025 Albumin/Globulin [Mass ratio] 1.4 {ratio} 0.9-2.4 [facility] Serum or plasma alkaline arnold sphatase measurementOrdered By: Trinidad Lobo 01-26-2025 ALP [Catalytic activity/Vol] 69 U/L 40-129 [facility] Serum or plasma calcium anne marie urement (mass/volume)Ordered By: Trinidad Lobo 01-26-2025 Calcium [Mass/Vol] 9.6 mg/dL 7.6-11.0 [facility] Serum or plasma cholesterol in HDL measurement (mass/volume)Ordered By: Trinidad Lobo 01-26-2025 Cholesterol in HDL [Mass/Vol] 35 mg/dL Low >40 [facility] Comment on above: National Cholesterol Education Program (NCEP) guidelines:<40 mg/dL: Low HDL-cholesterol (major risk factor for CHD)>= 60 mg/dL: High HDL-cholesterol (negative risk factor for CHD)HDL-cholesterol is affected by a number of factors, e.g. smoking, exercise, hormones, sex and age. Serum or plasma cholesterol measurement (mass/volume)Ordered By: Trinidad Lobo 01-26-2025 Cholesterol [Mass/Vol] 131 mg/dL <201 [facility] Comment on above: Cholesterol level, D esirable <200 mg/dLBorderline high cholesterol 200-239 mg/dLHigh cholesterol >=240 mg/dLRecommendations of the NCEP Adult Treatment Panel for the following risk-cutoff thresholds for the [place] population. Serum or plasma urea nitroge n measurement (mass/volume)Ordered By: Trinidad Lobo 01-26-2025 Urea nitrogen [Mass/Vol] 16 mg/dL 4-19 [facility] Sodium levelOrdered By: Valery mittal Modestoantoniaroger on 01-26-2025 Sodium [Moles/Vol] 138 mmol/L 133-145 [facility] Total proteinOrdered By: Jim irvin Lashell on 01-26-2025 Protein [Mass/Vol] 7.9 g/dL 5.9-8.4 [facility] Triglycerides measurementOrd ered By: Trniidad Lobo on 01-26-2025 Triglyceride [Mass/Vol] 257 mg/dL High <199 [facility] Comment on above: The drugs N-Acetylcy steine and Metamizole may falsely depress this assay. Normal range: <150 mg/dLBorderline High: 150-199 mg/dLHigh: 200-499 mg/dLVery High: >500 mg/dL White blood cell (WBC) count Ordered By: Trinidad Lobo on 01-26-2025 WBC (Bld) [#/Vol] 8.5 10*3/uL 4.4-11.0 [facility] Basophil percentageOrdered B y: Trinidad Lobo on 10-22-2023 Basophil percentage 0-5 SEEN /hpf 0-5 [facility] Bilirubin Test strip Ql (U)O rdered By: Trinidad Lobo on 10-22-2023 Bilirubin Ql (U) Negative Negative [facility] Ketones Test strip Ql (U)Ord ered By: Trinidad Lobo on 10-22-2023 Ketones Ql (U) Negative Negative [facility] Mucus LM Ql (Urine sed)Order ed By: Trinidad Lobo on 10-22-2023 Mucus Ql (Urine sed) 0 SEEN /hpf [facility] Nitrite Test strip Ql (U)Ord ered By: Trinidad Lobo on 10-22-2023 Nitrite Ql (U) Negative Negative [facility] No Panel InformationOrdered By: Trinidad Lobo on 10-22-2023 Urine RBC 0 SEEN /hpf 0-5 [facility] Protein Test strip Ql (U)Ord ered By: Trinidad Lobo on 10-22-2023 Protein Ql (U) Negative Negative [facility] Squamous epithelial cells de tection in urine sediment by light microscopyOrdered By: Trinidad Lobo on 10-22-2023 Epithelial cells.squamous LM Ql (Urine sed) 0 SEEN /hpf 0-5 [facility] Urine blood detectionOrdered By: Trinidad Lobo on 10-22-2023 RBC Ql (U) Negative Negative [facility] Urine clarityOrdered By: Jim Lobo on 10-22-2023 Clarity (U) Clear Clear [facility] Urine color determinationOrd ered By: Trinidad Lobo on 10-22-2023 Color (U) Yellow Yellow [facility] Urine glucose detectionOrder ed By: Trinidad Lobo on 10-22-2023 Glucose Ql (U) 1000 mg/dl Normal [facility] Urine leukocyte esterase det ection by dipstickOrdered By: Trinidad Lobo on 10-22-2023 Leukocyte esterase Test strip Ql (U) Negative Negative [facility] Urine pHOrdered By: Robert Lobo on 10-22-2023 pH (U) 5.0 [pH] 5.0 - 8.0 [facility] Urine sediment bacteria coun t by microscopy (number/high power field)Ordered By: Trinidad Lobo on 10-22-2023 Bacteria LM.HPF (Urine sed) [#/Area] 0 /[HPF] None Seen [facility] Urine specific gravity measu rementOrdered By: Trinidad Lobo on 10-22-2023 Specific gravity (U) [Rel density] 1.015 1.002-1.030 [facility] Urine urobilinogen measureme ntOrdered By: Trinidad Lobo on 10-22-2023 Urobilinogen Ql (U) Normal mg/dl Normal [facility] Basophil percentageOrdered B y: Trinidad Lobo on 10-15-2023 Basophil percentage 0-5 SEEN /hpf 0-5 [facility] Bilirubin Test strip Ql (U)O rdered By: Trinidad Lobo on 10-15-2023 Bilirubin Ql (U) Negative Negative [facility] Ketones Test strip Ql (U)Ord ered By: Trinidad Lobo on 10-15-2023 Ketones Ql (U) Negative Negative [facility] Mucus LM Ql (Urine sed)Order ed By: Trinidad Lobo on 10-15-2023 Mucus Ql (Urine sed) 0 SEEN /hpf [facility] Nitrite Test strip Ql (U)Ord ered By: Trinidad Lobo on 10-15-2023 Nitrite Ql (U) Negative Negative [facility] No Panel InformationOrdered By: Trinidad Lobo on 10-15-2023 Urine RBC 10-25 SEEN /hpf 0-5 [facility] Protein Test strip Ql (U)Ord ered By: Trinidad Lobo on 10-15-2023 Protein Ql (U) 15 mg/dl Negative [facility] Squamous epithelial cells de tection in urine sediment by light microscopyOrdered By: Trinidad Lobo on 10-15-2023 Epithelial cells.squamous LM Ql (Urine sed) 0 SEEN /hpf 0-5 [facility] Urine blood detectionOrdered By: Trinidad Lobo on 10-15-2023 RBC Ql (U) 250 /ul Negative [facility] Urine clarityOrdered By: Jim Lobo on 10-15-2023 Clarity (U) Sl. Cloudy Clear [facility] Urine color determinationOrd ered By: Trinidad Lobo on 10-15-2023 Color (U) Yellow Yellow [facility] Urine glucose detectionOrder ed By: Trinidad Lobo on 10-15-2023 Glucose Ql (U) 1000 mg/dl Normal [facility] Urine leukocyte esterase det ection by dipstickOrdered By: Trinidad Lobo on 10-15-2023 Leukocyte esterase Test strip Ql (U) Negative Negative [facility] Urine pHOrdered By: Robert Lobo on 10-15-2023 pH (U) 5.0 [pH] 5.0 - 8.0 [facility] Urine sediment bacteria coun t by microscopy (number/high power field)Ordered By: Trinidad Lobo on 10-15-2023 Bacteria LM.HPF (Urine sed) [#/Area] 0 /[HPF] None Seen [facility] Urine specific gravity measu rementOrdered By: Trinidad Lobo on 10-15-2023 Specific gravity (U) [Rel density] 1.010 1.002-1.030 [facility] Urine urobilinogen measureme ntOrdered By: Trinidad Lobo on 10-15-2023 Urobilinogen Ql (U) Normal mg/dl Normal [facility] Whole blood hemoglobin A1c/t otal hemoglobin ratio (mass fraction)Ordered By: Trinidad Lobo on 10-15-2023 HbA1c (Bld) [Mass fraction] 6.1 % 3.8-5.6 [facility] Comment on above: Normal < 5.7 % Predi abetic 5.7 - 6.4 % Diabetic >or= 6.5 % Please note range changes. Absolute lymphocyte countOrd ered By: Boby Goodson on 10-12-2023 Lymphocytes Auto (Unsp spec) [#/Vol] 2.07 10*3/uL 0.83-4.51 [facility] Automated lymphocyte count a s percentage of total leukocytesOrdered By: Boby Goodson on 10-12-2023 Lymphocytes/100 WBC Auto (Unsp spec) 33.8 % 19-41 [facility] Basophil percentageOrdered B y: Boby Goodson on 10-12-2023 Basophil percentage 0 SEEN /hpf 0-5 [facility] Basophils/100 WBC (Bld) 0.3 % 0-1 [facility] Bilirubin [Mass/Vol] 1.00 mg/dL 0.20-1.00 [facility] Comment on above: For patients on eltr ombopag therapy, use of Dimension [place] TBIL is not recommended. Chloride [Moles/Vol] 103 mmol/L 98-107 [facility] Eosinophils/100 WBC (Bld) 0.8 % 0-5 [facility] Glucose [Mass/Vol] 132 mg/dL 74-106 [facility] Comment on above: Fasting Glucose resu lt greater than or equal to 126 mg/dL suggests DIABETES MELLITUS per A.D.A. criteria. Hemoglobin (Bld) [Mass/Vol] 15.0 g/dL 13.0-16.5 [facility] Monocytes/100 WBC (Bld) 6.7 % 0-10 [facility] Neutrophils (Bld) [#/Vol] 3.5 10*3/uL 2.0-7.7 [facility] Neutrophils/100 WBC (Bld) 57.4 % 47-70 [facility] Potassium [Moles/Vol] 3.8 mmol/L 3.5-5.1 [facility] Protein [Mass/Vol] 8.5 g/dL 6.4-8.2 [facility] Sodium [Moles/Vol] 136 mmol/L 136-145 [facility] WBC (Bld) [#/Vol] 6.1 10*3/uL 4.4-11.0 [facility] Bilirubin Test strip Ql (U)O rdered By: Boby Goodson on 10-12-2023 Bilirubin Ql (U) Negative Negative [facility] Determination of erythrocyte mean corpuscular volume (MCV)Ordered By: Boby Goodson on 10-12-2023 MCV (RBC) [Entitic vol] 89.7 fL 80-94 [facility] Erythrocyte distribution wid th ratioOrdered By: Boby Goodson on 10-12-2023 Erythrocyte distribution width (RBC) [Ratio] 12.7 % 11.6-14.6 [facility] Erythrocyte distribution wid th standard deviationOrdered By: Boby Goodson on 10-12-2023 Erythrocyte distribution width (RBC) [Entitic vol] 41.9 fL 35.1-43.9 [facility] Hematocrit Auto (Bld) [Volum e fraction]Ordered By: Boby Goodson on 10-12-2023 Hematocrit (Bld) [Volume fraction] 44.6 % 40-54 [facility] Immature granulocytes/100 WB C Auto (Bld)Ordered By: Boby Goodson on 10-12-2023 Immature granulocytes/100 WBC (Bld) 1.000 % 0.0-0.9 [facility] Comment on above: IG% - Immature Granu locytes (promyelocytes, myelocytes and metamyelocytes) > 1% indicates that a LEFT SHIFT is Present. Ketones Test strip Ql (U)Ord ered By: Boby Goodson on 10-12-2023 Ketones Ql (U) 5 mg/dl Negative [facility] Laboratory - Chemistry and C hemistry - challengeOrdered By: Boby Goodson on 10-12-2023 Albumin/Globulin [Mass ratio] 1.0 {ratio} 0.9-2.4 [facility] ALP [Catalytic activity/Vol] 73 U/L 45-117 [facility] ALT [Catalytic activity/Vol] 22 U/L 16-61 [facility] CO2 [Moles/Vol] 26.0 mmol/L 21.0-32.0 [facility] Globulin (S) [Mass/Vol] 4.3 g/dL 2.2-4.2 [facility] Lipase [Catalytic activity/Vol] 41 U/L 13-75 [facility] Comment on above: Please note:LIPASE r evised reference range effective 22. New Lipase methodology. Expected to produce lower values than the previous assay method. NEW Reference Range: 13 - 75 U/L Urea nitrogen/Creatinine [Mass ratio] 12.4 mg/mg 10-20 [facility] Laboratory - Hematology and Cell countsOrdered By: Boby Goodson on 10-12-2023 MCH (RBC) [Entitic mass] 30.2 pg 27.0-32.0 [facility] MCHC (RBC) [Mass/Vol] 33.6 g/dL 32-36 [facility] Nucleated RBC/100 WBC (Bld) [Ratio] 0 % 0-5 [facility] Platelet mean volume (Bld) [Entitic vol] 9.7 fL 6.2-12.0 [facility] Platelets (Bld) [#/Vol] 262 10*3/uL 150-450 [facility] Mucus LM Ql (Urine sed)Order ed By: Boby Goodson on 10-12-2023 Mucus Ql (Urine sed) 0 SEEN /hpf [facility] Nitrite Test strip Ql (U)Ord ered By: Boby Goodson on 10-12-2023 Nitrite Ql (U) Negative Negative [facility] No Panel InformationOrdered By: Boby Goodson on 10-12-2023 Urine RBC 0-5 SEEN /hpf 0-5 [facility] Estimated Creatinine Clearance Calc 58.69 ml/min [facility] Estimated GFR (MDRD) Amer 77 mL/min >60 [facility] Comment on above: GFR Calc Estimated GFR (MDRD) Non-Af Amer 64 mL/min >60 [facility] Comment on above: Non- GFR Calc Protein Test strip Ql (U)Ord ered By: Boby Goodson on 10-12-2023 Protein Ql (U) Negative Negative [facility] RBC Auto (Bld) [#/Vol]Ordere d By: Boby Goodson on 10-12-2023 RBC (Bld) [#/Vol] 4.97 10*6/uL 4.6-6.2 [facility] Serum or plasma calcium anne marie urement (mass/volume)Ordered By: Boyb Goodson on 10-12-2023 Calcium [Mass/Vol] 9.4 mg/dL 8.5-10.1 [facility] Serum or plasma creatinine m easurement (mass/volume)Ordered By: Boby Goodson on 10-12-2023 Creatinine [Mass/Vol] 1.21 mg/dL 0.70-1.30 [facility] Comment on above: The validity of the calculated GFR & GFRAA in patients over 70 years has not been determined. Clinical correlation is essential. Serum or plasma urea nitroge n measurement (mass/volume)Ordered By: Boby Goodson on 10-12-2023 Urea nitrogen [Mass/Vol] 15 mg/dL 7-18 [facility] Squamous epithelial cells de tection in urine sediment by light microscopyOrdered By: Boby Goodson on 10-12-2023 Epithelial cells.squamous LM Ql (Urine sed) 0 SEEN /hpf 0-5 [facility] Thin prep Papanicolaou smear with manual screeningOrdered By: Boby Goodson on 10-12-2023 Thin prep Papanicolaou smear with manual screening 4.2 g/dL 3.2-5.0 [facility] Thin prep Papanicolaou smear with manual screening 19 U/L 15-37 [facility] Thin prep Papanicolaou smear with manual screening 7 5-15 [facility] Urine blood detectionOrdered By: Boby Goodson on 10-12-2023 RBC Ql (U) 50 /ul Negative [facility] Urine clarityOrdered By: Kirsten Goodson on 10-12-2023 Clarity (U) Clear Clear [facility] Urine color determinationOrd ered By: Boby Goodson on 10-12-2023 Color (U) Yellow Yellow [facility] Urine glucose detectionOrder ed By: Boby Goodson on 10-12-2023 Glucose Ql (U) 1000 mg/dl Normal [facility] Urine leukocyte esterase det ection by dipstickOrdered By: Boby Goodson on 10-12-2023 Leukocyte esterase Test strip Ql (U) Negative Negative [facility] Urine pHOrdered By: Boby portillo on 10-12-2023 pH (U) 6.0 [pH] 5.0 - 8.0 [facility] Urine sediment bacteria coun t by microscopy (number/high power field)Ordered By: Boby Goodson on 10-12-2023 Bacteria LM.HPF (Urine sed) [#/Area] 0 /[HPF] None Seen [facility] Urine specific gravity measu rementOrdered By: Boby Goodson on 10-12-2023 Specific gravity (U) [Rel density] 1.010 1.002-1.030 [facility] Urine urobilinogen measureme ntOrdered By: Boby Goodson on 10-12-2023 Urobilinogen Ql (U) Normal mg/dl Normal [facility] Absolute lymphocyte countOrd ered By: Trinidad Lobo on 04-27-2023 Lymphocytes Auto (Unsp spec) [#/Vol] 2.02 10*3/uL 0.83-4.51 [facility] Basophil percentageOrdered B y: Trinidad Lobo on 04-27-2023 Basophils/100 WBC (Bld) 0.6 % 0-1 [facility] Bilirubin [Mass/Vol] 0.90 mg/dL 0.20-1.00 [facility] Comment on above: For patients on eltr ombopag therapy, use of Dimension Overgaard TBIL is not recommended. Chloride [Moles/Vol] 103 mmol/L 98-107 [facility] Cholesterol [Mass/Vol] 134 mg/dL <200 [facility] Comment on above: <200 mg/dL Desirable 200-240 mg/dL Borderline >240 mg/dL High Risk Eosinophils/100 WBC (Bld) 1.5 % 0-5 [facility] Glucose [Mass/Vol] 103 mg/dL 74-106 [facility] Comment on above: Fasting Glucose resu lt from 100 to 125 mg/dL suggests IMPAIRED HOMEOSTASIS per A.D.A. criteria. Neutrophils (Bld) [#/Vol] 2.8 10*3/uL 2.0-7.7 [facility] Neutrophils/100 WBC (Bld) 52.7 % 47-70 [facility] Potassium [Moles/Vol] 4.2 mmol/L 3.5-5.1 [facility] Protein [Mass/Vol] 8.4 g/dL 6.4-8.2 [facility] Sodium [Moles/Vol] 137 mmol/L 136-145 [facility] Triglyceride [Mass/Vol] 244 mg/dL <199 [facility] Comment on above: The drugs N-Acetylcy steine and Metamizole may falsely depress this assay.Serum Triglycerides Reference Interval Normal <150 mg/dL Borderline high 150 - 199 mg/dL High 200 - 499 mg/dL Very High > or = 500 mg/dL WBC (Bld) [#/Vol] 5.2 10*3/uL 4.4-11.0 [facility] Blood erythrocytes count (nu mber/volume)Ordered By: Trinidad Lobo on 04-27-2023 RBC (Bld) [#/Vol] 4.99 10*6/uL 4.6-6.2 [facility] Blood hemoglobin measurement (mass/volume)Ordered By: Trinidad Lobo on 04-27-2023 Hemoglobin (Bld) [Mass/Vol] 14.8 g/dL 13.0-16.5 [facility] Blood lymphocytes/100 leukoc ytesOrdered By: Trinidad Lobo on 04-27-2023 Lymphocytes/100 WBC (Bld) 38.5 % 19-41 [facility] Blood monocytes/100 leukocyt esOrdered By: Trinidad Lobo on 04-27-2023 Monocytes/100 WBC (Bld) 5.7 % 0-10 [facility] Blood platelet mean volumeOr dered By: Trinidad Lobo on 04-27-2023 Platelet mean volume (Bld) [Entitic vol] 9.9 fL 6.2-12.0 [facility] Determination of erythrocyte mean corpuscular volume (MCV)Ordered By: jose Lobo on 04-27-2023 MCV (RBC) [Entitic vol] 91.2 fL 80-94 [facility] Hematocrit Auto (Bld) [Volum e fraction]Ordered By: [facility] on 04-27-2023 Hematocrit (Bld) [Volume fraction] 45.5 % 40-54 [facility] Laboratory - Chemistry and C hemistry - challengeOrdered By: [facility] 04-27-2023 ALP [Catalytic activity/Vol] 69 U/L 45-117 [facility] ALT [Catalytic activity/Vol] 28 U/L 16-61 [facility] CO2 [Moles/Vol] 28.0 mmol/L 21.0-32.0 [facility] Globulin (S) [Mass/Vol] 4.4 g/dL 2.2-4.2 [facility] Urea nitrogen/Creatinine [Mass ratio] 14.7 mg/mg 10-20 [facility] Laboratory - Hematology and Cell countsOrdered By: [facility] on 04-27-2023 Erythrocyte distribution width (RBC) [Entitic vol] 44.8 fL 35.1-43.9 [facility] Erythrocyte distribution width (RBC) [Ratio] 13.3 % 11.6-14.6 [facility] Immature granulocytes/100 WBC (Bld) 1.000 % 0.0-0.9 [facility] Comment on above: IG% - Immature Granu locytes (promyelocytes, myelocytes and metamyelocytes) > 1% indicates that a LEFT SHIFT is Present. MCH (RBC) [Entitic mass] 29.7 pg 27.0-32.0 [facility] Nucleated RBC/100 WBC (Bld) [Ratio] 0 % 0-5 [facility] Laboratory - Hematology and Cell countson 04-27-2023 HbA1c (Bld) [Mass fraction] 6.0 % 4.2-6.3 [facility] MCHC Auto (RBC) [Mass/Vol]Or dered By: [facility] on 04-27-2023 MCHC (RBC) [Mass/Vol] 32.5 g/dL 32-36 [facility] No Panel InformationOrdered By: Trinidad Lobo on 04-27-2023 Estimated GFR (MDRD) Amer 88 mL/min >60 [facility] Comment on above: GFR Calc Estimated GFR (MDRD) Non-Af Amer 72 mL/min >60 [facility] Comment on above: Non- GFR Calc Prostate Specific Antigen Screen 2.89 ng/mL 0.00-4.00 [facility] Comment on above: This test was perfor med using the TPSA assay method for [employer] system. Values obtained with differentassay methods cannot be used interchangably.When changing PSA assays in the course of monitoring apatient, additional sequential testing should be carriedout to confirm baseline values. Platelets bldOrdered By: Jim Lobo on 04-27-2023 Platelets (Bld) [#/Vol] 247 10*3/uL 150-450 [facility] Serum or plasma albumin anne marie urement (mass/volume)Ordered By: Trinidad Lobo on 04-27-2023 Albumin [Mass/Vol] 4.0 g/dL 3.2-5.0 [facility] Serum or plasma albumin/glob ulin mass ratioOrdered By: Trinidad Lobo on 04-27-2023 Albumin/Globulin [Mass ratio] 0.9 {ratio} 0.9-2.4 [facility] Serum or plasma calcium anne marie urement (mass/volume)Ordered By: Trinidad Lobo on 04-27-2023 Calcium [Mass/Vol] 9.2 mg/dL 8.5-10.1 [facility] Serum or plasma cholesterol in HDL measurement (mass/volume)Ordered By: Trinidad Lobo on 04-27-2023 Cholesterol in HDL [Mass/Vol] 38 mg/dL >40 [facility] Comment on above: The drugs N-Acetylcy steine and Metamizole may falsely depress this assay. Reference Range HDL <40 mg/dL Low HDL Cholesterol HDL >or= 60 mg/dL High HDL Cholesterol Serum or plasma cholesterol in VLDL measurement (mass/volume)Ordered By: Trinidad Lobo on 04-27-2023 Cholesterol in VLDL [Mass/Vol] 49 mg/dL 5-40 [facility] Serum or plasma creatinine m easurement (mass/volume)Ordered By: Trinidad Lobo on 04-27-2023 Creatinine [Mass/Vol] 1.09 mg/dL 0.70-1.30 [facility] Comment on above: The validity of the calculated GFR & GFRAA in patients over 70 years has not been determined. Clinical correlation is essential. Serum or plasma low density lipoprotein (LDL) cholesterol measurement (mass/volume)Ordered By: Trinidad Lobo on 04-27-2023 Cholesterol in LDL [Mass/Vol] 47 mg/dL 0-130 [facility] Serum or plasma urea nitroge n measurement (mass/volume)Ordered By: Trinidad Lobo on 04-27-2023 Urea nitrogen [Mass/Vol] 16 mg/dL 7-18 [facility] Thin prep Papanicolaou smear with manual screeningOrdered By: Valeryorangeburgdarlene Lobo on 04-27-2023 Thin prep Papanicolaou smear with manual screening 17 U/L 15-37 [facility] Thin prep Papanicolaou smear with manual screening 6 5-15 [facility] Absolute lymphocyte counton 05-08-2022 Lymphocytes Auto (Unsp spec) [#/Vol] 3.04 10*3/uL 0.83-4.51 [facility] Work Phone: Basophil percentageon 2021 Basophils/100 WBC (Bld) 0.3 % 0-1 [facility] Work Phone: Bilirubin [Mass/Vol] 0.60 mg/dL 0.20-1.00 [facility] Work Phone: Comment on above: For patients on eltr ombopag therapy, use of Dimension Overgaard TBIL is not recommended. Chloride [Moles/Vol] 102 mmol/L 98-107 [facility] Work Phone: Cholesterol [Mass/Vol] 120 mg/dL <200 [facility] Work Phone: Comment on above: <200 mg/dL Desirable 200-240 mg/dL Borderline >240 mg/dL High Risk Eosinophils/100 WBC (Bld) 2.4 % 0-5 [facility] Work Phone: [phone] Glucose [Mass/Vol] 79 mg/dL 74-106 [facility] Work Phone: [phone] Neutrophils (Bld) [#/Vol] 3.0 10*3/uL 2.0-7.7 [facility] Work Phone: [phone] Neutrophils/100 WBC (Bld) 44.1 % 47-70 [facility] Work Phone: [phone] Potassium [Moles/Vol] 4.0 mmol/L 3.5-5.1 [facility] Work Phone: [phone] Protein [Mass/Vol] 8.3 g/dL 6.4-8.2 [facility] Work Phone: [phone] Sodium [Moles/Vol] 139 mmol/L 136-145 [facility] Work Phone: Triglyceride [Mass/Vol] 305 mg/dL <199 [facility] Work Phone: Comment on above: The drugs N-Acetylcy steine and Metamizole may falsely depress this assay.Serum Triglycerides Reference Interval Normal <150 mg/dL Borderline high 150 - 199 mg/dL High 200 - 499 mg/dL Very High > or = 500 mg/dL WBC (Bld) [#/Vol] 6.7 10*3/uL 4.4-11.0 [facility] Work Phone: Blood erythrocytes count (nu mber/volume)on 05-08-2022 RBC (Bld) [#/Vol] 4.85 10*6/uL 4.6-6.2 [facility] Work Phone: Blood hemoglobin measurement (mass/volume)on 05-08-2022 Hemoglobin (Bld) [Mass/Vol] 14.2 g/dL 13.0-16.5 [facility] Work Phone: Blood lymphocytes/100 leukoc yteson 05-08-2022 Lymphocytes/100 WBC (Bld) 45.2 % 19-41 [facility] Work Phone: Blood monocytes/100 leukocyt eson 05-08-2022 Monocytes/100 WBC (Bld) 7.7 % 0-10 [facility] Work Phone: Blood platelet mean volumeon 05-08-2022 Platelet mean volume (Bld) [Entitic vol] 10.2 fL 6.2-12.0 [facility] Work Phone: Determination of erythrocyte mean corpuscular volume (MCV)on 05-08-2022 MCV (RBC) [Entitic vol] 90.3 fL 80-94 [facility] Work Phone: Hematocrit Auto (Bld) [Volum e fraction]on 05-08-2022 Hematocrit (Bld) [Volume fraction] 43.8 % 40-54 [facility] Work Phone: Laboratory - Chemistry and C hemistry - challengeon 05-08-2022 ALP [Catalytic activity/Vol] 70 U/L 45-117 [facility] Work Phone: ALT [Catalytic activity/Vol] 24 U/L 16-61 [facility] Work Phone: CO2 [Moles/Vol] 29.0 mmol/L 21.0-32.0 [facility] Work Phone: Globulin (S) [Mass/Vol] 4.3 g/dL 2.2-4.2 [facility] Work Phone: Urea nitrogen/Creatinine [Mass ratio] 12.9 mg/mg 10-20 [facility] Work Phone: Laboratory - Hematology and Cell countson 05-08-2022 Erythrocyte distribution width (RBC) [Entitic vol] 43.4 fL 35.1-43.9 [facility] Work Phone: Erythrocyte distribution width (RBC) [Ratio] 13.3 % 11.6-14.6 [facility] Work Phone: Immature granulocytes/100 WBC (Bld) 0.300 % 0.0-0.9 [facility] Work Phone: Comment on above: IG% - Immature Granu locytes (promyelocytes, myelocytes and metamyelocytes) > 1% indicates that a LEFT SHIFT is Present. MCH (RBC) [Entitic mass] 29.3 pg 27.0-32.0 [facility] Work Phone: Nucleated RBC/100 WBC (Bld) [Ratio] 0 % 0-5 [facility] Work Phone: HbA1c (Bld) [Mass fraction] 5.8 % 4.2-6.3 [facility] Work Phone: MCHC Auto (RBC) [Mass/Vol]on 05-08-2022 MCHC (RBC) [Mass/Vol] 32.4 g/dL 32-36 [facility] Work Phone: No Panel Informationon 05-08 Estimated GFR (MDRD) Amer 76 mL/min >60 [facility] Work Phone: Comment on above: GFR Calc Estimated GFR (MDRD) Non-Af Amer 63 mL/min >60 [facility] Work Phone: Comment on above: Non- GFR Calc Platelets bldon 05-08-2022 Platelets (Bld) [#/Vol] 268 10*3/uL 150-450 [facility] Work Phone: Serum or plasma albumin anne marie urement (mass/volume)on 05-08-2022 Albumin [Mass/Vol] 4.0 g/dL 3.2-5.0 [facility] Work Phone: Serum or plasma albumin/glob ulin mass ratioon 05-08-2022 Albumin/Globulin [Mass ratio] 0.9 {ratio} 0.9-2.4 [facility] Work Phone: Serum or plasma calcium anne marie urement (mass/volume)on 05-08-2022 Calcium [Mass/Vol] 9.2 mg/dL 8.5-10.1 [facility] Work Phone: Serum or plasma cholesterol in HDL measurement (mass/volume)on 05-08-2022 Cholesterol in HDL [Mass/Vol] 32 mg/dL >40 [facility] Work Phone: Comment on above: The drugs N-Acetylcy steine and Metamizole may falsely depress this assay. Reference Range HDL <40 mg/dL Low HDL Cholesterol HDL >or= 60 mg/dL High HDL Cholesterol Serum or plasma cholesterol in VLDL measurement (mass/volume)on 05-08-2022 Cholesterol in VLDL [Mass/Vol] 61 mg/dL 5-40 [facility] Work Phone: Serum or plasma creatinine m easurement (mass/volume)on 05-08-2022 Creatinine [Mass/Vol] 1.24 mg/dL 0.70-1.30 [facility] Work Phone: Comment on above: The validity of the calculated GFR & GFRAA in patients over 70 years has not been determined. Clinical correlation is essential. Serum or plasma low density lipoprotein (LDL) cholesterol measurement (mass/volume)on 05-08-2022 Cholesterol in LDL [Mass/Vol] 27 mg/dL 0-130 [facility] Work Phone: Serum or plasma urea nitroge n measurement (mass/volume)on 05-08-2022 Urea nitrogen [Mass/Vol] 16 mg/dL 7-18 [facility] Work Phone: Thin prep Papanicolaou smear with manual screeningon 05-08-2022 Thin prep Papanicolaou smear with manual screening 16 U/L 15-37 [facility] Work Phone: Thin prep Papanicolaou smear with manual screening 8 5-15 [facility] Work Phone: Laboratory - Hematology and Cell countson 02-06-2022 HbA1c (Bld) [Mass fraction] 7.2 % 4.2-6.3 [facility] Work Phone: Vital Signs Date Time Vital Sign Value Performing Clinician Faci lity 01-26-2025 15:11-0400 Body height 162.[address] Trinidad Lobo MD Work Phone: [facility] 01-26-2025 15:11-0400 Body mass index (BMI) [Ratio] 30.4 kg/m2 Dr. Trinidad Lobo MD Work Phone: [facility] 01-26-2025 15:11-0400 Body temperature 98.3 [degF] Dr. Trinidad Lobo MD Work Phone: [facility] 01-26-2025 15:11-0400 Body weight 80.[address] Trinidad Lobo MD Work Phone: [facility] 01-26-2025 15:11-0400 Diastolic blood pressure 60 mm[Hg] Dr. Trinidad Lobo MD Work Phone: [facility] 01-26-2025 15:11-0400 Heart rate 96 /min Dr. Trinidad Lobo MD Work Phone: [facility] 01-26-2025 15:11-0400 Respiratory rate 16 /min Dr. Trinidad Lobo MD Work Phone: [facility] 01-26-2025 15:11-0400 SaO2% (BldA) [Mass fraction] 98 % Dr. Trinidad oLbo MD Work Phone: [facility] 01-26-2025 15:11-0400 Systolic blood pressure 110 mm[Hg] Dr. Trinidad Lobo MD Work Phone: [facility] 11-05-2023 09:06-0400 Body temperature 98.4 [degF] Dr. Trinidad Lobo Work Phone: [facility] 11-05-2023 09:06-0400 Body weight 81.[address] Trinidad Lobo Work Phone: [facility] 11-05-2023 09:06-0400 Diastolic blood pressure 85 mm[Hg] Dr. Trinidad Lobo Work Phone: [facility] 11-05-2023 09:06-0400 Heart rate 98 /min Dr. Trinidad Lobo Work Phone: [facility] 11-05-2023 09:06-0400 Respiratory rate 16 /min Dr. Trinidad Lobo Work Phone: [facility] 11-05-2023 09:06-0400 SaO2% (BldA) [Mass fraction] 99 % Dr. Trinidad Lobo Work Phone: [facility] 11-05-2023 09:06-0400 Systolic blood pressure 129 mm[Hg] Dr. Trinidad Lobo Work Phone: [facility] 10-15-2023 14:56-0500 Body height [address] Trinidad Lobo Work Phone: [facility] 10-15-2023 14:56-0500 Body mass index (BMI) [Ratio] 29.5 kg/m2 Dr. Trinidad Lobo Work Phone: [facility] 10-15-2023 14:56-0500 Body temperature 97.6 [degF] Dr. Trinidad Lobo Work Phone: [facility] 10-15-2023 14:56-0500 Body weight 80.[address] Trinidad Lobo Work Phone: [facility] 10-15-2023 14:56-0500 Diastolic blood pressure 60 mm[Hg] Dr. Trinidad Lobo Work Phone: [facility] 10-15-2023 14:56-0500 Heart rate 96 /min Dr. Trinidad Lobo Work Phone: [facility] 10-15-2023 14:56-0500 Respiratory rate 16 /min Dr. Trinidad Lobo Work Phone: [facility] 10-15-2023 14:56-0500 SaO2% (BldA) [Mass fraction] 98 % Dr. Trinidad Lobo Work Phone: [facility] 10-15-2023 14:56-0500 Systolic blood pressure 130 mm[Hg] Dr. Trinidad Lobo Work Phone: [facility] 10-12-2023 11:38-0500 Body temperature 97.9 [degF] Dr. Trinidad Lobo Work Phone: [facility] 10-12-2023 11:38-0500 Diastolic blood pressure 65 mm[Hg] Dr. Trinidad Lobo Work Phone: [facility] 10-12-2023 11:38-0500 Heart rate 85 /min Dr. Trinidad Lobo Work Phone: [facility] 10-12-2023 11:38-0500 Respiratory rate 18 /min Dr. Trinidad Lobo Work Phone: [facility] 10-12-2023 11:38-0500 SaO2% (BldA) [Mass fraction] 99 % Dr. Trinidad Lobo Work Phone: [facility] 10-12-2023 11:38-0500 Systolic blood pressure 160 mm[Hg] Dr. Trinidad Lobo Work Phone: [facility] 10-12-2023 09:04-0500 Body mass index (BMI) [Ratio] 29.1 kg/m2 Dr. Trinidad Lobo Work Phone: [facility] 10-12-2023 09:04-0500 Body weight 79.[address] Trinidad Lobo Work Phone: [facility] 04-27-2023 10:59-0400 Body height 165.[address] Trinidad Lobo Work Phone: [facility] 04-27-2023 10:59-0400 Body mass index (BMI) [Ratio] 29.9 kg/m2 Dr. Trinidad Loob Work Phone: [facility] 04-27-2023 10:59-0400 Body temperature 98.1 [degF] Dr. Trinidad Lobo Work Phone: [facility] 04-27-2023 10:59-0400 Body weight 81.[address] Trinidad Lobo Work Phone: [facility] 04-27-2023 10:59-0400 Diastolic blood pressure 76 mm[Hg] Dr. Trinidad Lobo Work Phone: [facility] 04-27-2023 10:59-0400 Heart rate 101 /min Dr. Trinidad Lobo Work Phone: [facility] 04-27-2023 10:59-0400 Respiratory rate 16 /min Dr. Trinidad Lobo Work Phone: [facility] 04-27-2023 10:59-0400 SaO2% (BldA) [Mass fraction] 98 % Dr. Trinidad Lobo Work Phone: [facility] 04-27-2023 10:59-0400 Systolic blood pressure 118 mm[Hg] Dr. Trinidad Lobo Work Phone: [facility] 05-08-2022 15:24-0400 Body height 165.[address] Trinidad Lobo Work Phone: [facility] Work Phone: 05-08-2022 15:24-0400 Body mass index (BMI) [Ratio] 29.9 kg/m2 Dr. Trinidad Lobo Work Phone: [facility] Work Phone: 05-08-2022 15:24-0400 Body temperature 98.2 [degF] Dr. Trinidad Lobo Work Phone: [facility] Work Phone: 05-08-2022 15:24-0400 Body weight 81.[address] Trinidad Lobo Work Phone: [facility] Work Phone: 05-08-2022 15:24-0400 Diastolic blood pressure 72 mm[Hg] Dr. Trinidad Lobo Work Phone: [facility] Work Phone: 05-08-2022 15:24-0400 Heart rate 95 /min Dr. Trinidad Lobo Work Phone: [facility] Work Phone: 05-08-2022 15:24-0400 Respiratory rate 14 /min Dr. Trinidad Lobo Work Phone: [facility] Work Phone: 05-08-2022 15:24-0400 SaO2% (BldA) [Mass fraction] 97 % Dr. Trinidad Lobo Work Phone: [facility] Work Phone: 05-08-2022 15:24-0400 Systolic blood pressure 122 mm[Hg] Dr. Trinidad Lobo Work Phone: [facility] Work Phone: 02-06-2022 16:33-0400 Body mass index (BMI) [Ratio] 30.6 kg/m2 Dr. Trinidad Lobo Work Phone: [facility] Work Phone: 02-06-2022 16:33-0400 Body temperature 96.9 [degF] Dr. Trinidad Lobo Work Phone: [facility] Work Phone: 02-06-2022 16:33-0400 Body weight 83.[address] Trinidad Lobo Work Phone: [facility] Work Phone: 02-06-2022 16:33-0400 Diastolic blood pressure 70 mm[Hg] Dr. Trinidad Lobo Work Phone: [facility] Work Phone: 02-06-2022 16:33-0400 Heart rate 108 /min Dr. Trinidad Lobo Work Phone: [facility] Work Phone: 02-06-2022 16:33-0400 Respiratory rate 18 /min Dr. Trinidad Lobo Work Phone: [facility] Work Phone: 02-06-2022 16:33-0400 SaO2% (BldA) [Mass fraction] 97 % Dr. Trinidad Lobo Work Phone: [facility] Work Phone: 02-06-2022 16:33-0400 Systolic blood pressure 100 mm[Hg] Dr. Trinidad Lobo Work Phone: [facility] Work Phone: Encounters Encounter Date Encounter Type Care Provider Facility Start: 06-28-2025 ambulatory Efewongbe Oleghe Facili ty:[facility] Start: 06-28-2025 ambulatory Efewongbe Oleghe Facili ty:[facility] Start: 06-16-2025 End: 06-16-2025 ambulatory Efewongbe Oleghe Facility:[facility] Start: 06-14-2025 End: 06-14-2025 ambulatory Efewongbe Oleghe Facility[facility] Start: 06-14-2025 End: 06-14-2025 ambulatory Efeworangeburgbe Oleghe Facility:[facility] Start: 04-27-2025 End: 04-27-[address] Trinidad Lobo MD Work Phone: -[facility] Start: 04-27-2025 End: 04-27-[address] Trinidad Lobo MD -[facility] Start: 04-27-2025 End: 04-27-2025 ambulatory [facility] Facility:[facility] Start: 01-26-2025 Encounter for genera l adult medical examination without abnormal findings [facility] Start: 01-26-2025 End: 01-26-[address] Trinidad Lobo MD -[facility] Work Phone: Start: 01-26-2025 End: 01-26-[address] Trinidad Lobo MD [facility] Start: 01-26-2025 End: 01-26-[address] Trinidad Lobo MD Work Phone: [facility] Work Phone: Start: 01-26-2025 End: 01-26-2025 ambulatory [facility] Facility:[facility] Start: 11-12-2023 End: 11-12-[address] Trinidad Lobo Work Phone: [facility] Work Phone: Start: 11-12-2023 End: 11-12-[address] Trinidad Lobo Work Phone: [facility] Work Phone: Start: 11-05-2023 End: 11-05-[address] Trinidad Lobo Work Phone: [facility] Work Phone: Start: 10-22-2023 End: 10-22-[address] Trinidad Lobo Work Phone: [facility] Work Phone: Start: 10-22-2023 End: 10-22-[address] Trinidad Lobo Work Phone: [facility]Laboratory[facility] Specimen Work Phone: Start: 10-15-2023 End: 10-15-[address] Trinidad Lobo Work Phone: [facility] Work Phone: Start: 10-15-2023 End: 10-15-[address] Trinidad Lobo Work Phone: [facility] Work Phone: Start: 10-12-2023 End: 10-12-2023 Emergency department patient visit Dr. Trinidad Lobo Work Phone: [facility] Work Phone: Start: 04-27-2023 End: 04-27-[address] Trinidad Lobo Work Phone: [facility] Work Phone: Start: 04-27-[address] Trinidad Lobo Work Phone: [facility] Start: 04-27-2023 End: 04-27-2023 Encounter for general adult medical examination without abnormal findings Dr. Trinidad Lobo Work Phone: [facility] Start: 04-27-2023 End: 04-27-[address] Trinidad Lobo Work Phone: [facility] Work Phone: Start: 11-20-[address] Trinidad Lobo Work Phone: [facility] Start: 05-08-2022 End: 05-08-[address] Trinidad Lobo Work Phone: [facility] Work Phone: Start: 05-08-2022 End: 05-08-2022 Encounter for general adult medical examination without abnormal findings Dr. Trinidad Lobo Work Phone: [facility] Start: 05-08-2022 End: 05-08-[address] Trinidad Lobo Work Phone: [facility] Start: 02-06-2022 End: 02-06-[address] Trinidad oLbo Work Phone: [facility] Start: 07-23-[address] Trinidad Lobo Work Phone: [facility] Procedures Date Procedure Procedure Detail Performing Clinician Start: 11-12-2023 Computed tomography angiography of abdominal and/or pelvic blood vessel Dr. Trinidad Lobo Work Phone: Start: 10-12-2023 CT of abdomen and pe lvis without contrast Dr. Trinidad Lobo Work Phone: Plan of Treatment Date Care Activity Detail Author Start: 01-26-2025 CBC W Auto Differential panel - Blood [facility] Start: 01-26-2025 Comprehensive metabolic 2000 panel - Serum or Plasma [facility] Start: 01-26-2025 Lipid 1996 panel - Serum or Plasma [facility] Start: 01-26-2025 Patient referral [facility] Work Phone: Start: 10-15-2023 Patient referral [facility] Work Phone: Start: 10-12-2023 [facility] Alanine aminotransfe rase [Enzymatic activity/volume] in Serum or Plasma [facility] Albumin [Mass/volume ] in Serum or Plasma [facility] Alkaline phosphatase [Enzymatic activity/volume] in Serum or Plasma [facility] Anion gap in Serum or Plasma [facility] Bilirubin, total measurement [facility] BUN/Creatinine ratio [facility] Calcium [Mass/volume ] in Serum or Plasma [facility] Carbon dioxide, tota l [Moles/volume] in Central venous blood [facility] Cholesterol [Mass/vo lume] in Serum or Plasma [facility] Cholesterol in HDL [Mass/volume] in Serum or Plasma [facility] Creatinine [Mass/vol ume] in Serum or Plasma [facility] Erythrocyte mean cor puscular volume determination [facility] Glucose [Mass/volume ] in Serum or Plasma [facility] Hematocrit [Volume F raction] of Blood [facility] Hemoglobin [Mass/vol ume] in Blood [facility] Hemoglobin A1c/Hemoglobin.total in Blood [facility] Leukocytes [#/volume ] in Blood [facility] Low density lipoprot ein cholesterol measurement [facility] Mean corpuscular hem oglobin concentration determination [facility] Mean corpuscular hem oglobin determination [facility] Measurement of renal function [facility] Neutrophil count [facility] Neutrophil percent differential count [facility] Patient Education ED Kidney Ston e with Pain [facility] Work Phone: Patient referral [facility] Work Phone: Platelets [#/volume] in Blood [facility] Potassium measurement [facility] Red blood cell count [facility] Red cell distributio n width determination [facility] Serum chloride measurement [facility] Sodium measurement [facility] Total cholesterol:HD L ratio measurement [facility] Total protein measurement [facility] Triglycerides measurement [facility] Urea nitrogen [Mass/ volume] in Serum or Plasma [facility] VLDL cholesterol measurement [facility] Payers Date Payer Category Payer Self-pay [id number] 2024 Unknown [id number] Unknown [id number] [id number] [id number] Unknown [id number] 2.16.8 [id number] Unknown [id number] 2.16.8 [id number] Unknown [id number] 2.16.8 [id number] Unknown [id number] 2.16.8 [id number] Unknown [id number] 2.16.8 [id number] Unknown [id number] 2.16.8 [id number] Unknown [id number] 2.16.8 [id number] Social History Date Type Detail Facility Start: 05-08-2022 End: 11-05-2023 Tobacco smoking status ILIS Unknown if ever smoked [facility] Start: 1960 Sex Assigned At Male [facility] Start: 11-05-2023 [facility] Sex Male [facility] Evaluation note 01-26-2025 Note Date & Type Note Facility 01-26-2025 Evaluation note Diagnosis Onset Date Resolution Preventative health care acute January 26, 2025 2:46pm Type 2 diabetes mellitus chronic January 26, 2025 2:46pm [facility] Work Phone: Evaluation note Note Date & Type Note Facility Evaluation note Diagnosis Onset Date Anxiety and depression chron ic Hyperlipidemia chronic Type 2 diabetes mellitus [facility] Encounter for preventative a dult health care examination acute Type 2 diabetes mellitus [facility] Work Phone: Evaluation note Note Date & Type Note Facility Evaluation note Diagnosis Onset Date Left ear pain acute Preventative health care acu te Type 2 diabetes mellitus [facility] Work Phone: Evaluation note Note Date & Type Note Facility Evaluation note Diagnosis Onset Date BPH (benign prostatic hyperplasia) acute Calculus of distal right ureter acute Splenic artery aneurysm acut e Hyperlipidemia chronic Type 2 diabetes mellitus [facility] Work Phone: Evaluation note Note Date & Type Note Facility Evaluation note Diagnosis Onset Date BPH (benign prostatic hyperplasia) acute Splenic artery aneurysm acut e Hyperlipidemia chronic Type 2 diabetes mellitus [facility] Work Phone: Evaluation note Note Date & Type Note Facility Evaluation note Diagnosis Onset Date BPH (benign prostatic hyperplasia) acute Splenic artery aneurysm acut e Hyperlipidemia chronic Type 2 diabetes mellitus chr onic Splenic artery aneurysm acut e [facility] Work Phone: Evaluation note Note Date & Type Note Facility Evaluation note Diagnosis Onset Date Resolution Preventative health care acute January 26, 2025 2:46pm Type 2 diabetes mellitus chronic January 26, 2025 2:46pm [facility] Work Phone: Chief Complaint and Reason [...] Will No October 12 9:31am Power of Investigator Claims No October 12, 2023 9:31am Advance Directive Response Recorded Date/ Time Living Will No October 12 10:31am Power of Investigator Claims No October 12, 2023 10:31am Summary Purpose [...] Dr. Trinidad Lobo MD Primary Care [facility] [place], Attending Provider, Referring Provider Active Team Status: [...] ized section and content) DATE CREATED AUTHOR 06/29/2025 [facility] FOR RECORDS PERTAINING TO PATIENTS WHO ARE [...] BE BASED ON THE PRIMARY CLINICAL RECORDS. [employer] provides no warranty or guarantee of the accuracy or completeness of information in this document.
== END | disposition home or self-care (01) ==
LOC: CVS 07:53
PROVIDERS: PCP Internal Medicine; Referring Provider Student in an Organized Health Care Education/Training Program; Visit Provider Student in an Organized Health Care Education/Training Program
DX: R06.09 Other forms of dyspnea (principal); R00.2 Palpitations
CPT/HCPCS: 93225; 93226; 93306

== ENCOUNTER → 2025-08-03 | Outpatient (CLI) | payer BC, SELFPAY ==
--- NOTE | 2025-08-03 17:54 | CT_ITS ---
PROCEDURE: ABDOMEN/PELVIS WITH CONTRAST 08/03/2025 REASON FOR EXAM: GI BLEED, ABDOMINAL PAIN TECHNIQUE: Procedure Code: CTABDPELW Modality: CT Procedure: ABDOMEN/PELVIS WITH CONTRAST CT abdomen and pelvis was performed with IV contrast. Multiplanar reformats were generated. CONTRAST: Isovue-300 VOLUME: 100 mL Unspecified oral contrast also administered. One or more dose reduction techniques were used (e.g., Automated exposure control, adjustment of the mA and/or kV according to patient size, use of iterative reconstruction technique. RADIATION DOSE SUMMARY: CTDlvol: 13.30+ 15.01 mGy DLP: 815.04 mGycm COMPARISON: 11/12/2023 FINDINGS: Motion limitation through the lung bases and far upper abdomen. Lung bases: Mild atelectasis/scarring. Small hiatal hernia containing mostly fat.. Liver: Unremarkable. Spleen: Unremarkable. Gallbladder/biliary: Unremarkable. Pancreas: Unremarkable. Adrenals: Unremarkable. Kidneys: Subcentimeter hypodensities too small to characterize presumed cysts Bowel: Unremarkable. Note that the presence of positive oral contrast limits sensitivity for active GI bleeding. Top-normal caliber appendix without definite inflammation. Lymph nodes: Unremarkable. Vasculature: Grossly similar 15 x 24 mm peripherally calcified splenic artery aneurysm. Trace to mild atherosclerosis. Peritoneum: Unremarkable. Bladder: Underdistended and suboptimally evaluated, grossly unremarkable. Reproductive Organs: Prostatomegaly with heterogeneous enhancement. Body Wall: Tiny fat containing RIGHT inguinal and umbilical hernias. 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 Bones: Degenerative findings. CT/Abdomen/Pelvis WITH Contrast IMPRESSION: 1. No clearly suspicious findings. A site of definite active GI bleeding is no t identified noting that the administration of high-density oral contrast limits sensitivity. 2. Prostatomegaly with heterogeneous enhancement. Correlate with PSA. 3. Grossly similar 24 mm splenic artery aneurysm. 4. Additional description as above. Reading Location: [id number]
== END | disposition home or self-care (01) ==
LOC: CT 17:50
PROVIDERS: PCP Internal Medicine; Referring Provider Internal Medicine; Visit Provider Internal Medicine
DX: R10.13 Epigastric pain (principal); K92.2 Gastrointestinal hemorrhage, unspecified
CPT/HCPCS: 74177; Q9967